=== PATIENT | female | born 1945 | race Caucasian/White ===

== ENCOUNTER 2016-11-26 09:02 | Emergency (ER) | payer MEDICARE, BC ==
--- NOTE | 2016-11-26 09:42 | ED Physician Documentation ---
PD HPI CHEST PAIN - Stated complaint Stated Complaint: SOA/LT SIDE PX - Chief complaint Chief Complaint: Resp - History obtained from History obtained from: Patient - History of Present Illness Timing - onset: How many days ago (several days of left chest and upper back pain. Has had similar for the past several weeks or more, intermittently. Had been to PMD and had CXR that showed T4 compression defromity of unknown age, and not acute lung provess. Dx as muscle strain by PMD.) Timing - onset during: Light activity, Exertion ([place]oved [place] [facility] a [facility] ago and has been doing lifting, carrying and the pain is worse.) Timing - details: Gradual onset, Still present, Intermittant Quality: Aching, Sharp, Pain Location: Left chest (just under breast area and also upper thoracic back about T4-5 area. No noted rash nor sores.) Improved by: Rest Worsened by: Exertion, Movement (torso twisting and also bending, hurts with deep breathing.) Associated symptoms: No: Shortness of air, Nausea, Vomiting, Feeling faint / dizzy, Palpitations, Cough Similar symptoms before: Has not had sx before Recently seen: Not recently seen Review of Systems Constitutional: denies: Fever, Chills, Myalgias Nose: denies: Rhinorrhea / runny nose, Congestion Throat: denies: Sore throat Cardiac: reports: Chest pain / pressure. 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 - Present Medications Home Medications: Ambulatory Orders Medication Instructions Recorded Confirmed Benzonatate [Tessalon Perle] 100 mg PO PRN PRN 11/26/16 11/26/16 Cilostazol 0 mg PO DAILY 11/26/16 11/26/16 Diltiazem HCl 0 mg PO DAILY 11/26/16 11/26/16 HYDROcod/ACETAM 5/325 [Leisenring 5/325] 1 tab PO Q6H PRN #20 tablet 11/26/16 Lidocaine Patch 5% [Lidoderm Patch] 1 each TOP DAILY PRN #10 patch 11/26/16 Losartan Potassium 0 mg PO DAILY 11/26/16 11/26/16 Ondansetron HCl [Zofran] 4 mg PO Q6H PRN #20 tablet 11/26/16 Prednisone 10 mg PO DAILY 11/26/16 11/26/16 - Allergies Allergies/Adverse Reactions: Allergies Allergy/AdvReac Type Severity Reaction Status Date / Time codeine Allergy Nausea Verified 11/26/16 09:31 - Social History Does the pt smoke?: No Smoking Status: Never smoker - Family History Family history: denies: CAD, Aortic aneursym, Aortic dissection PD ED PE NORMAL - Vitals Vital signs reviewed: Yes - General General: Alert and oriented X 3, No acute distress, Well developed/nourished - HEENT HEENT: Atraumatic, Moist mucous membranes, Pharynx benign - Neck Neck: Supple, no meningeal sign, No adenopathy - Cardiac Cardiac: RRR, No murmur - Respiratory Respiratory: Clear bilaterally - Abdomen Abdomen: Normal bowel sounds, Soft, Non tender - Back Back: No CVA TTP, No spinal TTP (but is tender left sided scapular muscles medial aspect. No rash nor deformity. ) - Derm Derm: Normal color, Warm and dry, No rash - Neuro Neuro: Alert and oriented X 3, No motor deficit, Normal speech Results - Vitals Vitals: Oxygen O2 Source Room air - Rads (name of study) chest Radiology: Prelim report reviewed (bronchial cuffing. No infiltrates. ), EMP read contemporaneously (no pulmonary findings. Prior T4 compressive deformity noted. ) PD MEDICAL DECISION MAKING - ED course Complexity details: considered differential (she has had left chest/back pain wrapping around for awhile and has prior compressive deformity there. I think she is having radiculitis pain from that area. ), d/w patient Departure - Departure Disposition: 01 Home, Self Care Clinical Impression: Left sided chest pain, Thoracic radiculitis Condition: Stable Record reviewed to determine appropriate education?: Yes Instructions: ED Chest Pain NonCardiac Prescriptions: Lidocaine Patch 5% [Lidoderm Patch] 1 each TOP DAILY PRN #10 patch PRN Reason: Pain HYDROcod/ACETAM 5/325 [Leisenring 5/325] 1 tab PO Q6H PRN #20 tablet PRN Reason: Pain Ondansetron HCl [Zofran] 4 mg PO Q6H PRN #20 tablet PRN Reason: Nausea / Vomiting Comments: There may be a component of pleurisy or lung pain related to the interstitial lung disease and activity and dust removing. However I think a good part of the pain you are having is nerve irritation likely from the thoracic old compression. You can use your albuterol inhaler 2 puffs 4 times a day for the next few days. Also increase her prednisone to 20 mg a day for 3 more days and then back to the usual 10. For the back pain you can use a lidocaine patch in the left side of the back where it is hurting. Also use hydrocodone if needed for pain and can use 1/2-1 tablet every 6 hours. He can use ondansetron with it to reduce nausea side effects. 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 Follow-up with your primary care would be good to discuss Advair possibly of referral to assurance specialist for potential injections or other treatment or to consider the idea of a pinched nerve as a cause of it. Discharge Date/Time: 11/26/16 11:24
--- NOTE | 2016-11-26 10:14 | XRAY Report ---
EXAM: CHEST RADIOGRAPHY EXAM DATE: 11/26/2016 10:01 AM. CLINICAL HISTORY: Pain. COMPARISON: None. TECHNIQUE: 2 views. FINDINGS: Lungs/Pleura: Subtle increased interstitial markings with peribronchial cuffing. Rounded densities in the right lower lung field measuring up to 6 mm. No focal opacities evident. No pleural effusion. No pneumothorax. Normal volumes. Mediastinum: Heart and mediastinal contours are unremarkable. Other: None. IMPRESSION: 1. No focal consolidation. 2. Increased interstitial markings with subtle perirectal cuffing are nonspecific began using the set ting of reactive airways disease, bronchitis and viral infection. 3. There are rounded densities in the right lower lung field measuring up to 6 mm which are not local ized on the lateral view. While these may represent vascular shadows seen on and on the PA view due t o pulmonary densities cannot be excluded and a chest CT with contrast may be of clinical benefit. [facility] Referring Provider Line: [phone] SITE ID: [id number]
[2016-11-26] MEDS ORDERED: DEXAMETHASONE 10 MG/ML VIAL PO STA (10:26)
[2016-11-26] MEDS ORDERED: HYDROcod/ACETAM 5/325 MG TABLET PO STA (10:26)
[2016-11-26] MEDS ORDERED: ONDANSETRON ODT 4 MG TABLET TL STA (10:26)
[2016-11-26] MEDS ORDERED: HYDROcod/ACETAM 5/325 MG TABLET ONE (10:37)
[2016-11-26] MEDS ORDERED: ONDANSETRON ODT 4 MG TABLET ONE (10:37)
[2016-11-26] MEDS ORDERED: DEXAMETHASONE 10 MG/ML VIAL ONE (10:37)
[2016-11-26 10:56] VITALS: BP 133/85
== END 2016-11-26 11:24 | disposition home or self-care (01) ==
LOC: ED 09:02
DX: R07.9 Chest pain, unspecified (principal); M54.14 Radiculopathy, thoracic region; I10 Essential (primary) hypertension; J84.9 Interstitial pulmonary disease, unspecified
CPT/HCPCS: 71020; 99283; A9270; Q0162

== ENCOUNTER 2017-12-15 09:09 | Outpatient (CLI) | payer MEDICARE, OTHER ==
--- NOTE | 2017-12-17 16:28 | Mammography Report ---
Reason: SCREENING MAMMO Procedure Date: 12/15/2017 Accession Number: [id number] / [id number] Procedure: PAIGE - Screening Mammo Dig Bilat CPT Code: FULL RESULT: EXAM: Screening Mammo Dig Bilat DATE: 12/15/2017 9:54 AM CLINICAL HISTORY: 72-year-old female with history of breast reduction surgery. TECHNIQUE: Bilateral CC and MLO views were obtained. COMPARISON: 12/27/2015, 03/19/2014, 03/17/2013. FINDINGS: The breasts demonstrate scattered fibroglandular densities bilaterally. Coarse typically benign calcifications are seen bilaterally. No suspicious masses, clustered microcalcifications, or regions of architectural distortion are identified. IMPRESSION: Benign findings RECOMMENDATION: Routine annual screening unless otherwise clinically indicated. BIRADS CATEGORY 2: Benign findings STANDARD QUALIFYING STATEMENTS: 1. This examination was not reviewed with the aid of Computer-Aided Detection (CAD). 2. A negative or benign imaging report should not delay biopsy if clinically suspicious findings are present. Consider surgical consultation if warrented. More than 5% of cancers are not identified by imaging. 3. Dense breasts may obscure an underlying neoplasm. 4. This examination was reviewed without the aid of 3D breast imaging (tomosynthesis).
== END 2017-12-15 09:10 | disposition home or self-care (01) ==
LOC: DI 09:09
PROVIDERS: ATTEND Internal Medicine
DX: Z12.31 Encounter for screening mammogram for malignant neoplasm of breast (principal)
CPT/HCPCS: 77067

== ENCOUNTER 2018-04-09 10:10 | Emergency (ER) | payer MEDICARE, OTHER ==
--- NOTE | 2018-04-09 10:27 | ED Physician Documentation ---
PD HPI FEMALE - Stated complaint Stated Complaint: FEM - Chief complaint Chief Complaint: General - History obtained from History obtained from: Patient - History of Present Illness Timing - onset: Today, Last night Timing - details: Abrupt onset, Still present Associated symptoms: Dysuria, Urinary frequency. No: Fever, Vaginal discharge Similar symptoms before: Has not had sx before Recently seen: Not recently seen Review of Systems Constitutional: denies: Fever, Chills, Myalgias Nose: denies: Rhinorrhea / runny nose, Congestion Throat: denies: Sore throat Cardiac: denies: Chest pain / pressure, Palpitations Respiratory: denies: Cough GI: reports: Abdominal Pain, Nausea. denies: Vomiting, Diarrhea : reports: Dysuria, Frequency. 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 - Present Medications Home Medications: Ambulatory Orders Medication Instructions Recorded Confirmed Losartan Potassium 0 mg PO DAILY 11/26/16 04/09/18 Prednisone 10 mg PO DAILY 11/26/16 04/09/18 dilTIAZem HCl [Diltiazem HCl] 0 mg PO DAILY 11/26/16 04/09/18 Cephalexin [Keflex] 500 mg PO TID #21 capsule 04/09/18 Ondansetron Odt [Zofran] 4 mg TL Q6H PRN #10 tablet 04/09/18 - Allergies Allergies/Adverse Reactions: Allergies Allergy/AdvReac Type Severity Reaction Status Date / Time codeine Allergy Nausea Verified 04/09/18 10:25 - Social History Does the pt smoke?: No Smoking Status: Never smoker PD ED PE NORMAL - Vitals Vital signs reviewed: Yes - General General: Alert and oriented X 3, No acute distress, Well developed/nourished - HEENT HEENT: Moist mucous membranes, Pharynx benign - Neck Neck: Supple, no meningeal sign, No adenopathy - Cardiac Cardiac: RRR, No murmur - Respiratory Respiratory: Clear bilaterally - Abdomen Abdomen: Normal bowel sounds, Soft, Non distended, No organomegaly, Other (mild tender suprapubic and left flank. No rebound nor percussion tenderness. ) - Female Female : Deferred - Rectal Rectal: Deferred - Derm Derm: Normal color, No rash - Neuro Neuro: Alert and oriented X 3, No motor deficit, Normal speech Results - Vitals Vitals: Vital Signs - 24 hr 04/09/18 04/09/18 10:15 12:43 Temperature 36.1 C L 35.8 C L Heart Rate 68 73 Respiratory 18 16 Rate Blood Pressure 101/68 132/61 H O2 Saturation 100 97 Oxygen O2 Source Room air - Labs Labs: Laboratory Tests 04/09/18 04/09/18 04/09/18 10:15 11:10 11:10 WBC 11.4 H RBC 3.71 L Hgb 11.4 L Hct 34.9 L MCV 94.1 MCH 30.9 MCHC 32.8 RDW 14.6 Plt Count 258 MPV 6.8 L Neut # (Auto) 8.7 H Lymph # (Auto) 1.3 L [place] # (Auto) 1.3 H Eos # (Auto) 0.1 Baso # (Auto) 0.0 Absolute Nucleated RBC 0.00 Nucleated RBC % 0.0 Sodium 140 Potassium 3.7 Chloride 108 Carbon Dioxide 24 Anion Gap 8.0 BUN 18 Creatinine 0.7 Estimated GFR (MDRD) 82 L Glucose 99 Calcium 9.2 Total Bilirubin 0.5 AST 17 ALT 10 Alkaline Phosphatase 48 Total Protein 6.9 Albumin 3.6 Globulin 3.3 Albumin/Globulin Ratio 1.1 Lipase 29 Urine Color YELLOW Urine Clarity HAZY Urine pH 7.0 Ur Specific [place] 1.015 Urine Protein NEGATIVE Urine Glucose (UA) NEGATIVE Urine Ketones NEGATIVE Urine Occult Blood LARGE H Urine Nitrite NEGATIVE Urine Bilirubin NEGATIVE Urine Urobilinogen 0.2 (NORMAL) Ur Leukocyte Esterase SMALL H Urine RBC 6-10 H Urine WBC 11-25 H Ur Squamous Epith Cells RARE Squamous Urine Bacteria Rare Ur Microscopic Review INDICATED Urine Culture Comments INDICATED PD MEDICAL DECISION MAKING - ED course Complexity details: reviewed results, re-evaluated patient (feeling okay with fluids and meds. Started on abx. Is clinically stable for discharge and outpt treatment. ), considered differential (has dysuria and symptoms to c/w UTI and urine is positive enough to confirm. Not acute abd on exam. ), d/w patient Departure - Departure Disposition: 01 Home, Self Care Clinical Impression: UTI (urinary tract infection) Qualifiers: Urinary tract infection type: acute pyelonephritis Qualified Code(s): N10 - Acute pyelonephritis Condition: Stable Record reviewed to determine appropriate education?: Yes Instructions: ED UTI Cystitis Female Follow-Up: Vandana Holloway MD [Primary Care Provider] - Prescriptions: Cephalexin [Keflex] 500 mg PO TID #21 capsule Ondansetron Odt [Zofran] 4 mg TL Q6H PRN #10 tablet PRN Reason: Nausea / Vomiting Comments: Drink lots of fluids. Tylenol or ibuprofen if needed for pains. Ondansetron if needed for nausea. It sounds like an infection of the urinary tract both bladder and now early kidney. We will treat this with cephalexin antibiotic 3 times a day for the next week. Recheck if not improved over the next couple of days and return sooner if worsening. Discharge Date/Time: 04/09/18 12:44
[2018-04-09 10:30] LABS: BILIRUBIN,URINE NEGATIVE (NEGATIVE); CLARITY,URINE HAZY (CLEAR); GLUCOSE, URINE (UA) NEGATIVE (NEGATIVE); KETONES,URINE (UA) NEGATIVE (NEGATIVE); LEUKOCYTE ESTERASE, URINE SMALL (NEGATIVE); NITRITE,URINE NEGATIVE (NEGATIVE); OCCULT BLOOD,URINE LARGE (NEGATIVE); PROTEIN,URINE NEGATIVE (NEGATIVE); UROBILINOGEN,URINE 0.2 (NORMAL) E.U./dL (NORMAL)
[2018-04-09 10:34] LABS: SQUAMOUS EPITHELIAL CELL,UR RARE Squamous (<= Few)
[2018-04-09 10:35] LABS: BACTERIA,URINE Rare /HPF (None Seen)
[2018-04-09] MEDS ORDERED: ONDANSETRON 4 MG/2 ML VIAL IVP STA (10:43)
[2018-04-09] MEDS ORDERED: SODIUM CHLORIDE 0.9% 1,000 ML IV ONE (10:43)
[2018-04-09] MEDS ORDERED: KETOROLAC 15 MG/ML VIAL IVP STA (10:43)
[2018-04-09] MEDS ORDERED: cefTRIAXone 1 GM VIAL IVP STA (10:43)
[2018-04-09 11:32] LABS: ALBUMIN 3.6 g/dL (3.2-5.5); ALBUMIN/GLOBULIN RATIO 1.1 (1.0-2.2); BILIRUBIN,TOTAL 0.5 mg/dL (0.2-1.0); CALCIUM 9.2 mg/dL (8.5-10.3); CREATININE 0.7 mg/dL (0.4-1.0); TOTAL PROTEIN 6.9 g/dL (6.7-8.2)
[2018-04-09 11:45] LABS: BASOPHILS % (AUTO) 0.3 %; EOSINOPHILS # (AUTO) 0.1 10^3/uL (0.0-0.7); EOSINOPHILS % (AUTO) 0.5 %; HGB - HEMOGLOBIN 11.4 g/dL (12.0-16.0); LYMPHOCYTES # (AUTO) 1.3 10^3/uL (1.5-3.5); LYMPHOCYTES % (AUTO) 11.5 %; MEAN CORPUSCULAR HEMOGLOBIN 30.9 pg (27.0-31.0); MEAN CORPUSCULAR HGB CONC 32.8 g/dL (32.0-36.0); MEAN CORPUSCULAR VOLUME 94.1 fL (81.0-99.0); MEAN PLATELET VOLUME 6.8 fL (7.9-10.8); MONOCYTES # (AUTO) 1.3 10^3/uL (0.0-1.0); MONOCYTES % (AUTO) 11.1 %; NEUTROPHILS # (AUTO) 8.7 10^3/uL (1.5-6.6); NEUTROPHILS % (AUTO) 76.6 %; PLT - PLATELET COUNT 258 10^3/uL (130-450); RED BLOOD COUNT 3.71 10^6/uL (4.20-5.40); RED CELL DISTRIBUTION WIDTH 14.6 % (12.0-15.0); WHITE BLOOD COUNT 11.4 x10^3/uL (4.8-10.8)
[2018-04-09 12:44] VITALS: BP 132/61
== END 2018-04-09 12:44 | disposition home or self-care (01) ==
LOC: ED 10:10
DX: N10 Acute pyelonephritis (principal); I10 Essential (primary) hypertension
CPT/HCPCS: 36415; 80053; 81001; 81003; 83690; 85025; 87086; 96361; 96374; 96375; 99283

== ENCOUNTER 2018-12-01 08:22 | Day surgery (SDC) | payer MEDICARE, OTHER ==
[~2018-12-01 08:22] MED LIST: BRIMONIDINE 0.2% OPHTH DROPS 5 ML ONE; BSS/LIDOCAINE/EPINEPHRINE 1 ML SYRINGE ONE; TIMOLOL 0.5% OPHTH DROPS ONE; TRIAMCIN/MOXIFLOX OPHTHALMIC 0.6 ML VIAL IO ONE; VANCOMYCIN OPHTHALMI 8MG/0.8ML 8 MG/0.8 ML SYRINGE IO ONE
[2018-12-01] MEDS ORDERED: MIDAZOLAM 2 MG/2 ML VIAL IVP ONE (08:23)
[2018-12-01] MEDS ORDERED: CYCLOPENTOLATE 1% OPHTH DROPS 2 ML ONE (08:44)
[2018-12-01] MEDS ORDERED: PHENYLEPHRINE 2.5% OPHTH 2 ML DROPS ONE (08:44)
[2018-12-01] MEDS ORDERED: KETOROLAC 0.45% OPHTH DROPS ONE (08:44)
[2018-12-01] MEDS ORDERED: PROPARACAINE 0.5% OPHTH DROPS 15 ML ONE (08:45)
[2018-12-01] MEDS ORDERED: LACTATED RINGERS 500 ML IV ONE (08:49)
--- NOTE | 2018-12-01 08:54 | ANESTHESIA ---
Pre-Anesthesia VS, & Labs - Diagnosis right senile combined cataract - Procedure right lazer assisted cataract extraction with intraocular lens implant Vital Signs: 138/80, 109, 16, Height 4 ft 11 in Body Mass Index 25.6 - NPO >8 hours - Is Patient ?: No Home Medications and Allergies Home Medications: Ambulatory Orders Benzonatate [Tessalon Perle] 100 mg PO PRN PRN 11/30/18 Losartan Potassium 0 mg PO DAILY 11/26/16 dilTIAZem HCl [Diltiazem HCl] 0 mg PO DAILY 11/26/16 Benzonatate [Tessalon Perle] 100 mg PO PRN PRN 11/30/18 Allergies/Adverse Reactions: Allergies Allergy/AdvReac Type Severity Reaction Status Date / Time codeine Allergy Nausea Verified 12/01/18 08:47 Anes History & Medical History - Anesthetic History Anesthesia Complications: reports: Post-Operative Nausea/Vomiting - Medical History Cardiovascular: reports: Hypertension, Other Pulmonary: reports: 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) Gastrointestinal: reports: None Urinary: reports: None Neuro: reports: Other (vertigo) Musculoskeletal: reports: Chronic back pain Endocrine/Autoimmune: reports: None Skin: reports: Psoriasis Smoking Status: Never smoker - Surgical History General: Appendectomy Gynecologic: Hysterectomy Orthopedic: Other Exam General: Alert Dental: WNL, Partials Upper Mouth Opening: Greater than 4 Fingerbreadths Mallampati classification: II Thyromental Distance: greater than 6 cm Respiratory: Lungs clear, Decreased breath sounds Cardiovascular: Regular rate, Normal S1, Normal S2, Other (2/6 murmur) Plan Anesthesia Type: MAC Consent for Procedure(s) Verified and Reviewed: Yes Code Status: Attempt Resuscitation ASA classification: 4-Incapacitating disease Is this case an emergency?: No
[2018-12-01] MEDS ORDERED: CYCLOPENTOLATE 1% OPHTH DROPS 2 ML RIGHTEYE ONE (09:00)
[2018-12-01] MEDS ORDERED: PROPARACAINE 0.5% OPHTH DROPS 15 ML RIGHTEYE ONE (09:00)
[2018-12-01] MEDS ORDERED: PHENYLEPHRINE 2.5% OPHTH 2 ML DROPS RIGHTEYE ONE (09:00)
[2018-12-01] MEDS ORDERED: KETOROLAC 0.45% OPHTH DROPS RIGHTEYE ONE (09:00)
[2018-12-01] MEDS ORDERED: EPINEPHrine 1 MG/ML AMP IVP ONE (10:19)
[2018-12-01] MEDS ORDERED: CHONDR SULF/HYALURONATE SYRINGE IO ONE (10:19)
[2018-12-01] MEDS ORDERED: TIMOLOL 0.5% OPHTH DROPS OPTH ONE (10:19)
[2018-12-01] MEDS ORDERED: BRIMONIDINE 0.2% OPHTH DROPS 5 ML OPTH ONE (10:19)
[2018-12-01] MEDS ORDERED: TRIAMCIN/MOXIFLOX OPHTHALMIC 0.6 ML VIAL IO ONE (10:20)
[2018-12-01] MEDS ORDERED: BSS/LIDOCAINE/EPINEPHRINE 1 ML SYRINGE IO ONE (10:20)
[2018-12-01] MEDS ORDERED: VANCOMYCIN OPHTHALMI 8MG/0.8ML 8 MG/0.8 ML SYRINGE IO ONE (10:21)
--- NOTE | 2018-12-01 11:04 | OPERATIVE REPORT ---
DATE OF SERVICE: 12/01/2018 Physician: Justice Hastings MD PREOPERATIVE DIAGNOSIS: Visually significant cataract, right eye. This was her first cataract surgery. POSTOPERATIVE DIAGNOSIS: Visually significant cataract, right eye. This was her first cataract surgery. OPERATIVE PROCEDURE: Phacoemulsification with posterior chamber intraocular lens implant, right eye with laser assist. SURGEON: Justice Hastings MD ANESTHESIA: Monitored anesthesia care. COMPLICATIONS: None. OPERATIVE INDICATIONS: This is a 73-year-old woman with progressive vision loss in the right eye due to 3+ nuclear sclerotic, 2+ cortical and 2-3+ posterior subcapsular cataract. Best corrected visual acuity was 20/50 with glare to 20/100 in the right eye. Indications for surgery are overall decrease in vision, difficulty seeing words on a computer screen, difficulty reading, difficulty seeing words, closed caption or game scores on TV and difficulty with glare or bright lights in any situation. She was consented at length concerning risks and benefits of cataract surgery, after which she expressed a desire to proceed with surgery. OPERATIVE PROCEDURE: Patient was taken to OR #3 and placed under monitored anesthesia care. A surgical timeout was conducted confirming correct patient, correct procedure, and correct surgical site. She was placed on the LenSx laser and her eye docked to the laser interface. The laser performed the capsulotomy, lens softening, phaco wounds and arcuate keratotomy incisions. She was then moved to the operating microscope, given topical anesthesia, then prepped and draped in the usual sterile fashion. The eye was entered at the 12 and 9 o'clock positions. Intracameral Shugarcaine was injected into the anterior chamber, followed by Viscoat. The capsulorrhexis flap created by the LenSx laser was removed from the anterior chamber. The nucleus was hydrodissected and phacoemulsified. The cortex was evacuated using automated infusion and aspiration. Provisc was injected in the capsular bag and a 23.0 diopter intraocular lens was inserted in the bag. Approximately 0.8 mL of a mixture of triamcinolone, moxifloxacin and vancomycin was injected subconjunctivally in the superior quadrant for infection and inflammation prophylaxis. I and A was used to evacuate the viscoelastic materials. The eye was inflated to physiologic pressure using balanced salt solution and found to be watertight. Patient was taken from the operating room in good condition and given postoperative instructions. TD: 12/01/2018 10:37 MTDKurt
[2018-12-01 11:06] VITALS: BP 126/74
== END 2018-12-01 08:23 | disposition home or self-care (01) ==
LOC: SDS 08:22
PROVIDERS: ATTEND Ophthalmology
PROC: 08RJ3JZ Replacement of Right Lens with Synthetic Substitute, Percutaneous Approach (ICD-10-PCS; principal; 2018-12-01 09:30)
DX: H25.811 Combined forms of age-related cataract, right eye (principal); J61 Pneumoconiosis due to asbestos and other mineral fibers; T57 Toxic effect of other inorganic substances; I10 Essential (primary) hypertension; R12 Heartburn; G89.29 Other chronic pain; M54.9 Dorsalgia, unspecified; R42 Dizziness and giddiness; L30.9 Dermatitis, unspecified; Z79.51 Long term (current) use of inhaled steroids; Z79.52 Long term (current) use of systemic steroids; Z87.891 Personal history of nicotine dependence
CPT/HCPCS: 66984; A9270; J3490; V2632

== ENCOUNTER 2018-12-16 12:43 | Outpatient (CLI) | payer MEDICARE, OTHER ==
--- NOTE | 2018-12-19 08:30 | Mammography Report ---
Reason: SCREENING MAMMO Procedure Date: 12/16/2018 Accession Number: [id number] / [id number] Procedure: PAIGE - Screening Mammo w/Devyn CPT Code: FULL RESULT: EXAM: Screening Mammo w/Devyn DATE: 12/16/2018 1:50 PM CLINICAL HISTORY: Annual screening TECHNIQUE: (B) - Bilateral CC and MLO views were obtained. COMPARISON: 12/15/2017, 12/27/2015 PARENCHYMAL PATTERN: (F) - The breasts demonstrate diffuse fatty replacement bilaterally. . FINDINGS: There are no suspicious masses, calcifications, or areas of distortion. IMPRESSION: Negative examination. BI-RADS category 1. RECOMMENDATION: (ANNUAL) - Recommend routine annual screening mammography. BI-RADS CATEGORY: (1) - Negative. STANDARD QUALIFYING STATEMENTS: 1. This examination was reviewed with the aid of Computer-Aided Detection (CAD). 2. A negative or benign imaging report should not preclude biopsy if clinically suspicious findings are present. 3. Dense breasts may obscure an underlying neoplasm. 4. This examination was reviewed without the aid of 3D breast imaging (tomosynthesis).
== END 2018-12-16 12:44 | disposition home or self-care (01) ==
LOC: DI 12:43
PROVIDERS: ATTEND Internal Medicine
DX: Z12.31 Encounter for screening mammogram for malignant neoplasm of breast (principal)
CPT/HCPCS: 77063; 77067

== ENCOUNTER 2019-02-02 08:08 | Day surgery (SDC) | payer MEDICARE, OTHER ==
[~2019-02-02 08:08] MED LIST changes: +CYCLOPENTOLATE 1% OPHTH DROPS 2 ML ONE; +KETOROLAC 0.45% OPHTH DROPS ONE; +PHENYLEPHRINE 2.5% OPHTH 2 ML DROPS ONE; +PROPARACAINE 0.5% OPHTH DROPS 15 ML ONE
[2019-02-02] MEDS ORDERED: MIDAZOLAM 2 MG/2 ML VIAL IVP ONE (08:09)
[2019-02-02] MEDS ORDERED: LIDOCAINE 2% 10 ML MDV SUBQ ONE (08:09)
[2019-02-02] MEDS ORDERED: PROPOFOL 200 MG/20 ML VIAL IVP ONE (08:09)
[2019-02-02] MEDS ORDERED: LACTATED RINGERS 500 ML IV ONE (08:12)
[2019-02-02] MEDS ORDERED: KETOROLAC 0.45% OPHTH DROPS LEFTEYE ONE (08:25)
[2019-02-02] MEDS ORDERED: PHENYLEPHRINE 2.5% OPHTH 2 ML DROPS LEFTEYE ONE (08:25)
[2019-02-02] MEDS ORDERED: PROPARACAINE 0.5% OPHTH DROPS 15 ML LEFTEYE ONE (08:25)
[2019-02-02] MEDS ORDERED: CYCLOPENTOLATE 1% OPHTH DROPS 2 ML LEFTEYE ONE (08:25)
--- NOTE | 2019-02-02 09:19 | ANESTHESIA ---
Pre-Anesthesia VS, & Labs - Diagnosis Left senile combined cataract - Procedure Left laser assistedf phaco with IOL implant Height 4 ft 11 in Weight (kg) 56 kg Body Mass Index 25.6 - NPO >8 hours - Is Patient ?: Not Applicable Home Medications and Allergies Home Medications: Ambulatory Orders Albuterol 2.5 mg INH DAILY 02/01/19 Prednisone 10 mg PO DAILY 02/01/19 Losartan Potassium 0 mg PO DAILY 11/26/16 dilTIAZem HCl [Diltiazem HCl] 0 mg PO DAILY 11/26/16 Benzonatate [Tessalon Perle] 100 mg PO PRN PRN 11/30/18 Albuterol 2.5 mg INH DAILY 02/01/19 Prednisone 10 mg PO DAILY 02/01/19 Allergies/Adverse Reactions: Allergies Allergy/AdvReac Type Severity Reaction Status Date / Time codeine Allergy Nausea Verified 12/01/18 08:47 Anes History & Medical History - Anesthetic History Anesthesia Complications: reports: Post-Operative Nausea/Vomiting Family history of Anesthesia Complications: Denies Family history of Malignant Hyperthermia: Denies - Medical History Cardiovascular: reports: Hypertension, Other Pulmonary: reports: Other (Pulmonary fibrosis) Gastrointestinal: reports: None Urinary: reports: None Neuro: reports: None, Other Musculoskeletal: reports: Chronic back pain Endocrine/Autoimmune: reports: None Blood Disorders: reports: None Skin: reports: Psoriasis Smoking Status: Former smoker Psychosocial: reports: No issues indicated - Surgical History General: Appendectomy Gynecologic: Hysterectomy Orthopedic: Other Exam General: Alert, Oriented x3, Cooperative Dental: Other (Front upper false) Mouth Openin Fingerbreadth Neck Mobility: Normal Mallampati classification: III Thyromental Distance: 4-6 cm Respiratory: Rales Cardiovascular: Other (Irregular) Neurological: Normal speech Mental/Cognitive Status: Alert/Oriented X3 Cognitive Status: Within normal limits Plan Anesthesia Type: MAC Consent for Procedure(s) Verified and Reviewed: Yes Code Status: Attempt Resuscitation ASA classification: 3-Severe systemic disease Is this case an emergency?: No
[2019-02-02] MEDS ORDERED: CHONDR SULF/HYALURONATE SYRINGE IO ONE (09:47)
[2019-02-02] MEDS ORDERED: EPINEPHrine 1 MG/ML AMP IVP ONE (09:47)
[2019-02-02] MEDS ORDERED: BRIMONIDINE 0.2% OPHTH DROPS 5 ML OPTH ONE (09:47)
[2019-02-02] MEDS ORDERED: TIMOLOL 0.5% OPHTH DROPS OPTH ONE (09:47)
[2019-02-02] MEDS ORDERED: VANCOMYCIN OPHTHALMI 8MG/0.8ML 8 MG/0.8 ML SYRINGE IO ONE (09:48)
[2019-02-02] MEDS ORDERED: TRIAMCIN/MOXIFLOX OPHTHALMIC 0.6 ML VIAL IO ONE (09:48)
[2019-02-02] MEDS ORDERED: BSS/LIDOCAINE/EPINEPHRINE 1 ML SYRINGE IO ONE (09:48)
[2019-02-02 10:08] VITALS: BP 103/57
--- NOTE | 2019-02-02 10:40 | OPERATIVE REPORT ---
DATE OF SERVICE: 02/02/2019 Physician: Justice Hastings MD PREOPERATIVE DIAGNOSIS: Visually significant cataract, left eye. Cataract surgery was performed on the right eye on 12/01/2018. POSTOPERATIVE DIAGNOSIS: Visually significant cataract, left eye. Cataract surgery was performed on the right eye on 12/01/2018. PROCEDURE: Phacoemulsification with posterior chamber intraocular lens implant, left eye, with laser assist. SURGEON: Justice Hastings MD ANESTHESIA: Monitored anesthesia care. COMPLICATIONS: None. OPERATIVE INDICATIONS: This is a 73-year-old woman with progressive vision loss in the left eye due to 3+ nuclear sclerotic, 2+ cortical and 3+ posterior subcapsular cataract. Best corrected visual acuity was 20/40, with glare to hand motion vision in the left eye. Indications for surgery are overall decrease in vision, difficulty reading and difficulty seeing words, closed caption or game scores on TV. She was consented at length concerning risks and benefits of cataract surgery, after which she expressed a desire to proceed with surgery. OPERATIVE PROCEDURE: Patient was taken to OR #3 and placed under monitored anesthesia care. A surgical timeout was conducted confirming correct patient, correct procedure, and correct surgical site. She was placed under the LenSx laser and her eye docked to the laser interface. The laser performed the capsulotomy, lens softening, phaco wounds, and arcuate keratotomy incisions. She was then moved to the operating microscope, given topical anesthesia, and prepped and draped in the usual sterile manner. The eye was entered at the 6 and 3 o'clock positions. Intracameral Shugarcaine was injected into the anterior chamber, followed by Viscoat. The capsulorhexis flap created by the LenSx laser was removed from the anterior chamber. The nucleus was hydrodissected and phacoemulsified. The cortex was evacuated using automated infusion and aspiration (I&A). Provisc was injected in the capsular bag and a 23.0 diopter intraocular lens was inserted in the bag. Approximately 0.25 mL of a mixture of triamcinolone and moxifloxacin was injected transsclerally into the vitreous in the inferotemporal quadrant. An additional 0.55 mL of a mixture of triamcinolone, moxifloxacin and vancomycin was injected subconjunctivally in the superior quadrant for infection and inflammation prophylaxis. I&A was used to evacuate the viscoelastic materials. The eye was inflated to physiologic pressure using balanced salt solution and found to be watertight. Patient was taken from the operating room in good condition and given postoperative instructions. TD: 02/02/2019 10:12 MARLYN
== END 2019-02-02 08:09 | disposition home or self-care (01) ==
LOC: SDS 08:08
PROVIDERS: ATTEND Ophthalmology
PROC: 08RK3JZ Replacement of Left Lens with Synthetic Substitute, Percutaneous Approach (ICD-10-PCS; principal; 2019-02-02 09:30)
DX: H25.812 Combined forms of age-related cataract, left eye (principal); I10 Essential (primary) hypertension; J84.10 Pulmonary fibrosis, unspecified; J61 Pneumoconiosis due to asbestos and other mineral fibers; K21.9 Gastro-esophageal reflux disease without esophagitis; R42 Dizziness and giddiness; G89.29 Other chronic pain; M54.9 Dorsalgia, unspecified; Z79.51 Long term (current) use of inhaled steroids; Z79.52 Long term (current) use of systemic steroids; Z87.891 Personal history of nicotine dependence
CPT/HCPCS: 66984; A9270; J3490; V2632

== ENCOUNTER 2019-04-24 10:58 | Outpatient (CLI) | payer MEDICARE, OTHER ==
--- NOTE | 2019-04-24 16:52 | XRAY Report ---
Reason: COUGH Procedure Date: 04/24/2019 Accession Number: [id number] / [id number] Procedure: XR - Chest 2 View X-Ray CPT Code: 69059 Final Report FULL RESULT: EXAM: CHEST RADIOGRAPHY EXAM DATE: 04/24/2019 11:09 AM. CLINICAL HISTORY: COUGH. Right lateral chest pain COMPARISON: CHEST 2 VIEW PA/LAT 11/26/2016 9:51 AM. TECHNIQUE: 2 views. FINDINGS: Lungs/Pleura: Increased interstitial markings. Several rounded dense nodules are seen predominantly in the right hemithorax, question granulomas. Right diaphragm calcification. No pleural effusion. No pneumothorax. Low lung volumes. Mediastinum: Heart and mediastinal contours are prominent. Other: Increasing thoracic kyphosis with bony demineralization and multiple compression fractures, progressed since 2017. IMPRESSION: Low lung volumes and chronic changes without definite findings of an acute superimposed process. Increasing thoracic kyphosis with multiple compression fractures appearing since 2017. If cough and pain persists consider CT. RADIA
== END 2019-04-24 10:59 | disposition home or self-care (01) ==
LOC: DI 10:58
PROVIDERS: ATTEND Internal Medicine
DX: R05 Cough (principal); M48.54XA Collapsed vertebra, not elsewhere classified, thoracic region, initial encounter for fracture; M40.204 Unspecified kyphosis, thoracic region
CPT/HCPCS: 71046

== ENCOUNTER 2019-07-28 15:22 | Emergency (ER) | payer MEDICARE, OTHER ==
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
[2019-07-28 15:57] LABS: BASOPHILS # (AUTO) 0.1 10^3/uL (0.0-0.1); BASOPHILS % (AUTO) 0.3 %; EOSINOPHILS % (AUTO) 0.1 %; HGB - HEMOGLOBIN 14.3 g/dL (12.0-16.0); LYMPHOCYTES # (AUTO) 1.3 10^3/uL (1.5-3.5); LYMPHOCYTES % (AUTO) 7.2 %; MEAN CORPUSCULAR HEMOGLOBIN 33.3 pg (27.0-31.0); MEAN CORPUSCULAR HGB CONC 32.4 g/dL (32.0-36.0); MEAN PLATELET VOLUME 8.7 fL (7.9-10.8); MONOCYTES # (AUTO) 0.6 10^3/uL (0.0-1.0); MONOCYTES % (AUTO) 3.1 %; NEUTROPHILS # (AUTO) 15.4 10^3/uL (1.5-6.6); PLT - PLATELET COUNT 319 10^3/uL (130-450); RED BLOOD COUNT 4.29 10^6/uL (4.20-5.40); RED CELL DISTRIBUTION WIDTH 18.1 % (12.0-15.0); WHITE BLOOD COUNT 17.7 x10^3/uL (4.8-10.8)
[2019-07-28 16:08] LABS: ALBUMIN 3.4 g/dL (3.2-5.5); BILIRUBIN,TOTAL 0.7 mg/dL (0.2-1.0); CREATININE 0.8 mg/dL (0.4-1.0); TOTAL PROTEIN 6.7 g/dL (6.7-8.2)
--- NOTE | 2019-07-28 16:25 | XRAY Report ---
Reason: dyspnea Procedure Date: 07/28/2019 Accession Number: [id number] / [id number] Procedure: XR - Chest 1 View X-Ray CPT Code: 28585 Final Report FULL RESULT: EXAM: CHEST RADIOGRAPHY EXAM DATE: 07/28/2019 04:04 PM. CLINICAL HISTORY: Dyspnea. COMPARISON: CHEST 2 VIEW 04/24/2019 11:04 AM CHEST 2 VIEW PA/LAT 11/26/2016 9:51 AM. TECHNIQUE: 1 view. FINDINGS: Lungs/Pleura: Increased lung markings. Reticulation. Right hilar prominence. No effusions. Possible calcified pleural plaques. Low volumes. Mediastinum: Stable Other: None. IMPRESSION: 1. Suspect underlying airways disease. 2. Possible fibrosis. CT would better evaluate. 3. Right hilar fullness is indeterminate. Could be prominent vessels or mass. CT could clarify. 4. Possible calcified pleural plaques which can be seen with asbestos exposure RADIA
[2019-07-28] MEDS ORDERED: cefTRIAXone 2 GM in SODIUM CHLORIDE 0.9% MINIBAG 100 ML IV STA (16:27)
[2019-07-28] MEDS ORDERED: AZITHROMYCIN INJ 500 MG in SODIUM CHLORIDE 0.9% 250 ML IV STA (16:27)
[2019-07-28] MEDS ORDERED: ACETAMINOPHEN 325 MG TABLET PO STA (16:32)
[2019-07-28] MEDS ORDERED: methocarbamoL 500 MG TABLET PO STA (16:32)
[2019-07-28] MEDS ORDERED: IOVERSOL 320 100 ML VIAL IVP ONE ×2 (16:40→20:43)
--- NOTE | 2019-07-28 17:26 | CT Report ---
Reason: dyspnea, abn cxr Procedure Date: 07/28/2019 Accession Number: [id number] / [id number] Procedure: CT - ANGIO CHEST W/WO CPT Code: Final Report FULL RESULT: EXAM: CT ANGIOGRAM CHEST EXAM DATE: 07/28/2019 05:00 PM. CLINICAL HISTORY: Increasing dyspnea COMPARISON: None. TECHNIQUE: Routine helical imaging was performed through the chest in the pulmonary arterial phase. IV Contrast: OPTIRAY 320. Reconstructions: Coronal 3-D MIP reconstructions. Sagittal and coronal. In accordance with CT protocol optimization, one or more of the following dose reduction techniques were utilized for this exam: automated exposure control, adjustment of mA and/or KV based on patient size, or use of iterative reconstructive technique. FINDINGS: Pulmonary Arteries: Diagnostic quality: Adequate through the segmental arteries. No evidence for acute or chronic pulmonary emboli. RV/LV is within normal limits. There is no interventricular septal bowing. There is no reflux of contrast material in the IVC. Lungs/Pleura: There is basilar predominant subpleural reticulation with traction bronchiectasis. Questionable subpleural cyst formation. There is some scattered associated groundglass opacity. There are pleural calcifications. There is no evidence of acute consolidation. No effusion. There is no pneumothorax. Mediastinum: There is cardiomegaly. There are no enlarged axillary, supraclavicular, mediastinal, or hilar lymph nodes. Thoracic Aorta: No acute aortic abnormalities are seen. There is mild convexity of the ligamentum arteriosum. No evidence of dissection. Upper Abdomen: There is a moderate sized hiatal hernia. Mid esophagus is patulous with fluid. The gallbladder is distended. Other: There are remote bilateral rib fractures. There are multiple compression fractures of the thoracic spine. Bones are osteopenic. IMPRESSION: 1. No evidence of acute pulmonary embolism. 2. No acute infiltrate or effusion. 3. There is subpleural reticulation with traction bronchiectasis. There is patchy groundglass opacity. There may be some areas of honeycombing. Findings are suggestive of UIP. NSIP would be a differential consideration. 4. There are scattered pleural calcifications which may reflect asbestos exposure. 5. There is a moderate size hiatal hernia. 6. The gallbladder is distended. RADIA
[2019-07-28] MEDS ORDERED: METOCLOPRAMIDE 10 MG/2 ML VIAL IVP STA (17:49)
[2019-07-28] MEDS ORDERED: methylPREDNISolone SUCCINATE 125 MG/2 ML VIAL IVP STA (17:49)
[2019-07-28 19:50] VITALS: BP 122/74
== END 2019-07-28 19:00 | disposition home or self-care (01) ==
LOC: ED 15:22
DX: J84.10 Pulmonary fibrosis, unspecified (principal); Z79.52 Long term (current) use of systemic steroids; Z99.81 Dependence on supplemental oxygen; I44.4 Left anterior fascicular block; K44.9 Diaphragmatic hernia without obstruction or gangrene; I10 Essential (primary) hypertension; T21.14XA Burn of first degree of lower back, initial encounter; X19.XXXA Contact with other heat and hot substances, initial encounter; Z87.891 Personal history of nicotine dependence
CPT/HCPCS: 36415; 71045; 71275; 80053; 81599; 83605; 83690; 83880; 84484; 85025; 87040; 93005; 96374; 96375; 99284; A9270; J2765; Q9967

== ENCOUNTER 2019-08-15 12:46 | Emergency (ER) | payer MEDICARE ==
[2019-08-15 13:15] LABS: BASOPHILS % (AUTO) 0.2 %; EOSINOPHILS % (AUTO) 0.2 %; HGB - HEMOGLOBIN 13.9 g/dL (12.0-16.0); LYMPHOCYTES # (AUTO) 1.6 10^3/uL (1.5-3.5); LYMPHOCYTES % (AUTO) 8.8 %; MEAN CORPUSCULAR HEMOGLOBIN 34.4 pg (27.0-31.0); MEAN CORPUSCULAR VOLUME 104.2 fL (81.0-99.0); MEAN PLATELET VOLUME 9.1 fL (7.9-10.8); MONOCYTES # (AUTO) 0.9 10^3/uL (0.0-1.0); MONOCYTES % (AUTO) 4.7 %; NEUTROPHILS # (AUTO) 15.2 10^3/uL (1.5-6.6); NEUTROPHILS % (AUTO) 83.8 %; PLT - PLATELET COUNT 225 10^3/uL (130-450); RED BLOOD COUNT 4.04 10^6/uL (4.20-5.40); RED CELL DISTRIBUTION WIDTH 18.2 % (12.0-15.0); WHITE BLOOD COUNT 18.1 x10^3/uL (4.8-10.8)
[2019-08-15 13:29] LABS: ALBUMIN 3.2 g/dL (3.2-5.5); ALBUMIN/GLOBULIN RATIO 0.9 (1.0-2.2); BILIRUBIN,TOTAL 0.8 mg/dL (0.2-1.0); CALCIUM 9.1 mg/dL (8.5-10.3); CREATININE 0.9 mg/dL (0.4-1.0); TOTAL PROTEIN 6.8 g/dL (6.7-8.2)
--- NOTE | 2019-08-15 13:54 | XRAY Report ---
Reason: Chest pain Procedure Date: 08/15/2019 Accession Number: [id number] / [id number] Procedure: XR - Chest 1 View X-Ray CPT Code: 86899 Final Report FULL RESULT: EXAM: CHEST RADIOGRAPHY EXAM DATE: 08/15/2019 01:18 PM. CLINICAL HISTORY: Chest pain. COMPARISON: ANGIO CHEST W/WO 07/28/2019 4:52 PM CHEST 1 VIEW 07/28/2019 3:46 PM. TECHNIQUE: 1 view. FINDINGS: Lungs/Pleura: Elevation right hemidiaphragm with right hemithorax volume loss. Indistinct left hemidiaphragm. Multiple right hemithorax pleural plaques suggestive of asbestos exposure. Groundglass density right lung base. Mediastinum: Deviation of the trachea to the right. Cardiac enlargement without interval change. Other: Multiple remote bilateral rib fractures. Diffuse mid and lower thoracic spine vertebral body compression. IMPRESSION: 1. Possible early infiltrate right lung base. 2. Silhouetting left hemidiaphragm. Possible small left pleural fluid. RADIA
--- NOTE | 2019-08-15 14:38 | ED Physician Documentation ---
PD HPI DYSPNEA - Stated complaint Stated Complaint: SOA - Chief complaint Chief Complaint: Cardiac - History obtained from History obtained from: Patient - History of Present Illness Timing - onset: How many weeks ago (2-3) Timing - onset during: Light activity Timing - duration: Weeks (2-3 weeks of increased dyspnea, some cough, and bilateral leg edema. started on Lasix by PMD without improvement. Has been using compressive socks. Did improved some with Zpack and steroid increase (baseline 10 mg daily, was increased to Pred taper starting at 60 mg, then 40 then 20 and has gotten back to her baseline 10 mg. Has symptoms developing in past several days to a week again. Now with some green tinged sputum as wel, and no improvement in leg edema both legs.) Timing - details: Gradual onset, Still present Inciting event(s): URI, Other (URI symptoms with cough and dyspnea, though also having bilateral leg edema.). No: Out of meds, Immobilization/travel Improved by: O2, Rest. No: Sitting up Worsened by: No: Laying flat Associated symptoms: Cough, Wheezing, Bilateral edema. No: Fever Recently seen: Emergency Dept (2 weeks ago) Review of Systems Constitutional: reports: Myalgias, Fatigue. denies: Fever, Chills, Weight Loss Nose: denies: Rhinorrhea / runny nose, Congestion Throat: denies: Sore throat Respiratory: reports: Cough Skin: denies: Rash, Lesions Musculoskeletal: denies: Neck pain, Back pain Neurologic: reports: Generalized weakness. 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 - Present Medications Home Medications: Ambulatory Orders Medication Instructions Recorded Confirmed Losartan Potassium 0 mg PO DAILY 11/26/16 02/02/19 dilTIAZem HCL [Diltiazem HCl] 0 mg PO DAILY 11/26/16 02/02/19 Benzonatate [Tessalon Perle] 100 mg PO PRN PRN 11/30/18 02/02/19 Albuterol 2.5 mg INH DAILY 02/01/19 02/01/19 Prednisone 10 mg PO DAILY 02/01/19 02/01/19 Azithromycin 1 tab PO DAILY #4 tablet 07/28/19 predniSONE [Deltasone] 20 mg PO [id number] #21 tab 07/28/19 Albuterol Sulfate [Albuterol 2 puffs IH QID #1 hfa.aer.ad 08/15/19 Sulfate Hfa] Benzonatate [Tessalon Perle] 100 mg PO TID PRN #20 capsule 08/15/19 Doxycycline Monohydrate 100 mg PO BID #14 tablet 08/15/19 - Allergies Allergies/Adverse Reactions: Allergies Allergy/AdvReac Type Severity Reaction Status Date / Time codeine Allergy Nausea Verified 07/28/19 15:25 - Living Situation Living Situation: reports: With spouse/s.o. Living Arrangement: reports: At home - Social History Does the pt smoke?: No Smoking Status: Never smoker Does the pt drink ETOH?: No Does the pt have substance abuse?: No - Immunizations Immunizations are current?: Yes - POLST Patient has POLST: Yes PD ED PE NORMAL - Vitals Vital signs reviewed: Yes (sats are good on her usual 2 lpm NC. ) - General General: Alert and oriented X 3, No acute distress, Well developed/nourished - HEENT HEENT: Pharynx benign - Neck Neck: Supple, no meningeal sign, No adenopathy, No JVD - Cardiac Cardiac: RRR, No murmur - Respiratory Respiratory: No: Clear bilaterally (crinkly sounds, more on right c/w fibrosis. No coarse wetness. Some prolonged resp but no over wheeze. ) - Abdomen Abdomen: Soft, Non tender - Derm Derm: Normal color, Warm and dry - Extremities Extremities: No tenderness to palpate, Normal ROM s pain, Other (1+ edema in both lower legs with some tenderness both calves, more to the right. ) - Neuro Neuro: Alert and oriented X 3, No motor deficit, Normal speech Results - Vitals Vitals: Vital Signs - 24 hr 08/15/19 08/15/19 08/15/19 12:50 12:54 15:50 Temperature 36.8 C Heart Rate 60 74 Respiratory 18 17 Rate Blood Pressure 118/86 H O2 Saturation 86 L 95 05/08/15/19 08/15/19 16:14 18:50 19:29 Temperature Heart Rate 91 99 99 Respiratory 26 H 21 18 Rate Blood Pressure 125/81 H 127/61 127/61 O2 Saturation 100 100 100 Oxygen O2 Source Room air Oxygen Flow Rate 2 - EKG (time done) 13:08 Rate: Rate (enter#) (111) Rhythm: Sinus tachycardia [place]: Normal Intervals: Normal CT QRS: Normal Ischemia: Normal ST segments. No: ST elevation c/w ischemia, ST depression - Labs Labs: Laboratory Tests 08/15/19 08/15/19 08/15/19 13:08 13:08 13:08 WBC 18.1 H RBC 4.04 L Hgb 13.9 Hct 42.1 MCV 104.2 H MCH 34.4 H MCHC 33.0 RDW 18.2 H Plt Count 225 MPV 9.1 Neut # (Auto) 15.2 H Lymph # (Auto) 1.6 Major # (Auto) 0.9 Eos # (Auto) 0.0 Baso # (Auto) 0.0 Absolute Nucleated RBC 0.02 Nucleated RBC % 0.1 Sodium 138 Potassium 3.5 Chloride 104 Carbon Dioxide 19 L Anion Gap 15.0 H BUN 17 Creatinine 0.9 Estimated GFR (MDRD) 61 L Glucose 110 H Calcium 9.1 Magnesium Total Bilirubin 0.8 AST 25 ALT 15 Alkaline Phosphatase 119 Troponin I High Sens 45.5 H* B-Natriuretic Peptide Total Protein 6.8 Albumin 3.2 Globulin 3.6 Albumin/Globulin Ratio 0.9 L Lipase 37 08/15/19 08/15/19 08/15/19 13:08 13:08 17:51 WBC RBC Hgb Hct MCV MCH MCHC RDW Plt Count MPV Neut # (Auto) Lymph # (Auto) Major # (Auto) Eos # (Auto) Baso # (Auto) Absolute Nucleated RBC Nucleated RBC % Sodium Potassium Chloride Carbon Dioxide Anion Gap BUN Creatinine Estimated GFR (MDRD) Glucose Calcium Magnesium 2.0 Total Bilirubin AST ALT Alkaline Phosphatase Troponin I High Sens 48.5 H* B-Natriuretic Peptide 228 H Total Protein Albumin Globulin Albumin/Globulin Ratio Lipase - Rads (name of study) chest xray Radiology: Prelim report reviewed (similar changes c/w asbestosis/fibrosis with haziness infiltrate right base.), See rad report duplex venous both legs Radiology: Prelim report reviewed (no DVT), See rad report PD MEDICAL DECISION MAKING - ED course Complexity details: reviewed results (CXR showing usual fibrosis, with hazy right base. Bedside U/S did not show obvious pericardiale ffusion. She felt better with MDI doses with spacer. Feels able to go home.), considered differential (possible mild infiltrate right base. Her sats are good on just 2 lpm, and unlabored breathing. Does not appear to need hospitalization. ), d/w patient, d/w product/industry consultant (iron worker [facility] at [facility] - who felt some short in crease in steroid is good, and does not need taper. To Rx with abx. ) Departure - Departure Disposition: Home, Self Care Clinical Impression: Pulmonary fibrosis, Leg edema Dyspnea Qualifiers: Dyspnea type: shortness of breath Qualified Code(s): R06.02 - Shortness of breath Pneumonia Qualifiers: Pneumonia type: due to unspecified organism Laterality: right Lung location: lower lobe of lung Qualified Code(s): J18.9 - Pneumonia, unspecified organism Condition: Stable Record reviewed to determine appropriate education?: Yes Instructions: ED Dyspnea Shortness of Breath, ED Pneumonia Adult Follow-Up: Vandana Holloway MD [Primary Care Provider] - Ranulfo Engel MD [Physician No Access] - Prescriptions: Albuterol Sulfate [Albuterol Sulfate Hfa] 2 puffs IH QID #1 hfa.aer.ad Benzonatate [Tessalon Perle] 100 mg PO TID PRN #20 capsule PRN Reason: Cough Doxycycline Monohydrate 100 mg PO BID #14 tablet Comments: Your ultrasound was normal without any signs of blood clots. Continue with the compression socks and elevating your legs. You can continue the furosemide diuretic if you wish though it does not sound like it was really having much effect. He will be okay to stop it as well. Increase your prednisone from 10 to 20 mg for 5 days. Meanwhile be in contact with your destination imagination coordinator to decide dosing after that. Use doxycycline antibiotic twice daily for a week. You can use Tessalon if needed for cough suppression. Use the albuterol inhaler 2 to 3 puffs 3 or 4 times a day in the short-term as there may be some benefit from the albuterol now with the current symptoms even if it does not help on the pulmonary fibrosis in the long-term. Contact your primary care and destination imagination coordinator in the next couple of days for further guidance. Return if worse. Discharge Date/Time: 08/15/19 19:40
[2019-08-15] MEDS ORDERED: ALBUTEROL 1 PUFF INH STA (15:09)
[2019-08-15] MEDS ORDERED: BENZONATATE 100 MG CAPSULE PO STA (15:09)
[2019-08-15] MEDS ORDERED: DEXAMETHASONE 10 MG/ML VIAL IVP STA (15:09)
[2019-08-15] MEDS ORDERED: SODIUM CHLORIDE 0.9% 1,000 ML IV STA (15:11)
--- NOTE | 2019-08-15 17:29 | Ultrasound Report ---
Reason: legs swelling; dyspnea Procedure Date: 08/15/2019 Accession Number: [id number] / [id number] Procedure: US - Duplex Ext Veins Bilateral CPT Code: Final Report FULL RESULT: EXAM: BILATERAL LOWER EXTREMITY VENOUS ULTRASOUND EXAM DATE: 08/15/2019 04:14 PM. CLINICAL HISTORY: Legs swelling; dyspnea. COMPARISON: None. TECHNIQUE: Real-time sonographic vascular imaging was performed by the livestock speculator through the lower extremities utilizing both color-flow and Doppler spectral analysis. Multiple sales representative publications static images were saved for review. The calf veins were well seen due to significant calf edema and patient was sensitive to the probe during the exam. FINDINGS: Right: Common Femoral Vein (CFV): Normal. CFV-GSV Junction: Normal. Profunda Femoral Vein (PFV): Normal. Femoral Vein (FV) Prox: Normal. Femoral Vein (FV) Mid: Normal. Femoral Vein (FV) Dist: Normal. Popliteal Vein: Normal. Posterior Tibial Veins: Normal. Peroneal Veins: Normal. Left: Common Femoral Vein (CFV): Normal. CFV-GSV Junction: Normal. Profunda Femoral Vein (PFV): Normal. Femoral Vein (FV) Prox: Normal. Femoral Vein (FV) Mid: Normal. Femoral Vein (FV) Dist: Normal. Popliteal Vein: Normal. Posterior Tibial Veins: Normal. Peroneal Veins: Normal. Other: Bilateral calf edema. Medial left knee there is a 2.3 x 0.9 x 1.9 cm fluid collection. IMPRESSION: 1. No evidence for deep venous thrombosis bilaterally. 2. Fluid along the medial left knee, may be due to effusion or soft tissue injury, not in typical location of a Verduzco's cyst. RADIA
[2019-08-15] MEDS ORDERED: cefTRIAXone 1 GM VIAL IVP STA (17:43)
[2019-08-15] MEDS ORDERED: DOXYCYCLINE 100 MG TABLET PO STA (17:43)
[2019-08-15 18:51] VITALS: BP 127/61
== END 2019-08-15 19:40 | disposition home or self-care (01) ==
LOC: ED 12:46
DX: J18.9 Pneumonia, unspecified organism (principal); J84.10 Pulmonary fibrosis, unspecified; R60.0 Localized edema; I10 Essential (primary) hypertension; I49.3 Ventricular premature depolarization; I44.4 Left anterior fascicular block
CPT/HCPCS: 36415; 71045; 80053; 83690; 83735; 83880; 84484; 85025; 93005; 93970; 94640; 96361; 96374; 96375; 99284; 99285; A9270; U0004; 81599

== ENCOUNTER 2019-09-09 12:43 | Outpatient (CLI) | payer MEDICARE | END 2019-09-09 12:44 | disposition EMS.NT | LOC: EMS 12:43 | PROVIDERS: ATTEND Surgery | DX: R00.2 Palpitations (principal) ==

== ENCOUNTER 2019-09-12 20:31 | Outpatient (CLI) | payer MEDICARE | END 2019-09-12 20:32 | disposition critical access hospital (66) | LOC: EMS 20:31 | PROVIDERS: ATTEND Surgery | DX: R53.1 Weakness (principal); R11.0 Nausea | CPT/HCPCS: A0425; A0429 ==

== ENCOUNTER 2019-09-12 20:38 | Inpatient (IN) | payer MEDICARE ==
--- NOTE | 2019-09-12 20:55 | ED Physician Documentation ---
History of Present Illness - Stated complaint Stated Complaint: WEAKNESS - Chief complaint Chief Complaint: Resp - History obtained from History obtained from: Patient - History of Present Illness Timing: How many weeks ago (2-3) Pain level max: 0 Pain level now: 0 Improved by: rest Worsened by: exertion Associated symptoms: poor appetite, generalized weakness, dyspnea - Additonal information Additional information: c/o approximately 3 weeks of increasing generalized weakness and shortness of breath. She also c/o decreasing appetite over same time frame. she says she was diagnosed with pneuomnia last month (in this ED), and had improvement with antibiotic and increased steroid dose, but symptoms recurred and are now worse. She says she has become too weak to ambulate around her house. Review of Systems Constitutional: reports: Fatigue. denies: Fever, Chills, Myalgias, Sweats Ears: reports: Reviewed and negative Nose: reports: Reviewed and negative Throat: reports: Reviewed and negative Cardiac: reports: Palpitations (rapid palpitations), Pedal edema. denies: Chest pain / pressure Respiratory: reports: Dyspnea, Cough. denies: Hemoptysis, Wheezing GI: reports: Nausea. denies: Abdominal Pain, Vomiting, Constipation, Diarrhea : denies: Dysuria, Frequency Skin: denies: Rash Musculoskeletal: reports: Back pain. denies: Neck pain Neurologic: reports: Generalized weakness. 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 - Present Medications Home Medications: Ambulatory Orders Medication Instructions Recorded Confirmed Losartan Potassium 0 mg PO DAILY 11/26/16 02/02/19 dilTIAZem HCL [Diltiazem HCl] 0 mg PO DAILY 11/26/16 02/02/19 Benzonatate [Tessalon Perle] 100 mg PO PRN PRN 11/30/18 02/02/19 Albuterol 2.5 mg INH DAILY 02/01/19 02/01/19 Prednisone 10 mg PO DAILY 02/01/19 02/01/19 Azithromycin 1 tab PO DAILY #4 tablet 07/28/19 predniSONE [Deltasone] 20 mg PO [id number] #21 tab 07/28/19 Albuterol Sulfate [Albuterol 2 puffs IH QID #1 hfa.aer.ad 08/15/19 Sulfate Hfa] Benzonatate [Tessalon Perle] 100 mg PO TID PRN #20 capsule 08/15/19 Doxycycline Monohydrate 100 mg PO BID #14 tablet 08/15/19 - Allergies Allergies/Adverse Reactions: Allergies Allergy/AdvReac Type Severity Reaction Status Date / Time codeine Allergy Nausea Verified 07/28/19 15:25 - Social History Does the pt smoke?: No Smoking Status: Never smoker Does the pt drink ETOH?: No Does the pt have substance abuse?: No - Immunizations Immunizations are current?: Yes - POLST Patient has POLST: Yes PD ED PE NORMAL - Vitals Vital signs reviewed: Yes - General General: Alert and oriented X 3, Well developed/nourished - HEENT HEENT: Moist mucous membranes - Neck Neck: Supple, no meningeal sign - Cardiac Cardiac: No murmur - Respiratory Respiratory: No respiratory distress - Abdomen Abdomen: Soft, Non tender - Back Back: No CVA TTP - Derm Derm: Normal color, Warm and dry - Neuro Neuro: Alert and oriented X 3, supervisor coil springs 2-12 intact, No sensory deficit, Other (no focal weakness, but unable to sit up in bed without assistance) Eye Opening: Spontaneous Motor: Obeys Commands Verbal: Oriented GCS Score: 15 PD ED PE EXPANDED - Respiratory Respiratory: Decreased breath sounds, Other (bilateral course breath sounds, overall diminished breath sounds) - Extremities Extremities: Pedal edema bilateral (ankles/feet) Results - Vitals Vitals: Vital Signs - 24 hr 09/12/19 09/12/19 09/12/19 20:45 20:52 21:46 Temperature 36.1 C L Heart Rate 93 90 84 Respiratory 22 18 16 Rate Blood Pressure 144/91 H 144/91 H 154/86 H O2 Saturation 73 L 100 99 09/12/19 09/12/19 22:30 22:51 Temperature Heart Rate 88 96 Respiratory 16 20 Rate Blood Pressure 120/69 O2 Saturation 100 Oxygen O2 Source Nasal cannula Oxygen Flow Rate 3 - EKG (time done) No standard instances Rate: Rate (enter#) (90) Rhythm: NSR [place]: LAD, Anterior hemiblock QRS: Poor R wave progression Ischemia: Normal ST segments - Labs Labs: Laboratory Tests 09/12/19 09/12/19 09/12/19 21:02 21:02 21:02 WBC 13.6 H RBC 4.15 L Hgb 14.5 Hct 43.9 MCV 105.8 H MCH 34.9 H MCHC 33.0 RDW 18.6 H Plt Count 212 MPV 10.1 Neut # (Auto) Not Reportable Lymph # (Auto) Not Reportable [place] # (Auto) Not Reportable Eos # (Auto) Not Reportable Baso # (Auto) Not Reportable Absolute Nucleated RBC Not Reportable Total Counted 100 Band Neuts % (Manual) 2 Abnorm Lymph % (Manual) 0 Metamyelocytes % 1 H Myelocytes % 1 H Nucleated RBC % Not Reportable Neutrophils # (Manual) 10.3 H Lymphocytes # (Manual) 1.6 Monocytes # (Manual) 1.4 H Eosinophils # (Manual) 0.0 Basophils # (Manual) 0.0 Differential Comment MANUAL DIFFERENTIAL Platelet Estimate NORMAL (130-450,000) RBC Morph Micro Appear NORMAL APPEARANCE ESR Sodium 141 Potassium 3.1 L Chloride 104 Carbon Dioxide 24 Anion Gap 13.0 BUN 18 Creatinine 0.6 Estimated GFR (MDRD) 97 Glucose 106 H Lactic Acid Calcium 9.0 Total Bilirubin 0.9 AST 18 ALT 17 Alkaline Phosphatase 116 Total Creatine Kinase CK-MB (CK-2) Troponin I High Sens C-Reactive Protein B-Natriuretic Peptide 153 H Total Protein 6.5 L Albumin 3.0 L Globulin 3.5 Albumin/Globulin Ratio 0.9 L Lipase 43 TSH Urine Color Urine Clarity Urine pH Ur Specific [place] Urine Protein Urine Glucose (UA) Urine Ketones Urine Occult Blood Urine Nitrite Urine Bilirubin Urine Urobilinogen Ur Leukocyte Esterase Ur Microscopic Review Urine Culture Comments 09/12/19 09/12/19 09/12/19 21:02 21:02 21:02 WBC RBC Hgb Hct MCV MCH MCHC RDW Plt Count MPV Neut # (Auto) Lymph # (Auto) [place] # (Auto) Eos # (Auto) Baso # (Auto) Absolute Nucleated RBC Total Counted Band Neuts % (Manual) Abnorm Lymph % (Manual) Metamyelocytes % Myelocytes % Nucleated RBC % Neutrophils # (Manual) Lymphocytes # (Manual) Monocytes # (Manual) Eosinophils # (Manual) Basophils # (Manual) Differential Comment Platelet Estimate RBC Morph Micro Appear ESR Sodium Potassium Chloride Carbon Dioxide Anion Gap BUN Creatinine Estimated GFR (MDRD) Glucose Lactic Acid 1.7 Calcium Total Bilirubin AST ALT Alkaline Phosphatase Total Creatine Kinase CK-MB (CK-2) Troponin I High Sens 35.9 H* C-Reactive Protein B-Natriuretic Peptide Total Protein Albumin Globulin Albumin/Globulin Ratio Lipase TSH 2.78 Urine Color Urine Clarity Urine pH Ur Specific [place] Urine Protein Urine Glucose (UA) Urine Ketones Urine Occult Blood Urine Nitrite Urine Bilirubin Urine Urobilinogen Ur Leukocyte Esterase Ur Microscopic Review Urine Culture Comments 09/12/19 09/12/19 09/12/19 21:02 21:02 21:02 WBC RBC Hgb Hct MCV MCH MCHC RDW Plt Count MPV Neut # (Auto) Lymph # (Auto) [place] # (Auto) Eos # (Auto) Baso # (Auto) Absolute Nucleated RBC Total Counted Band Neuts % (Manual) Abnorm Lymph % (Manual) Metamyelocytes % Myelocytes % Nucleated RBC % Neutrophils # (Manual) Lymphocytes # (Manual) Monocytes # (Manual) Eosinophils # (Manual) Basophils # (Manual) Differential Comment Platelet Estimate RBC Morph Micro Appear ESR 19 Sodium Potassium Chloride Carbon Dioxide Anion Gap BUN Creatinine Estimated GFR (MDRD) Glucose Lactic Acid Calcium Total Bilirubin AST ALT Alkaline Phosphatase Total Creatine Kinase 16 L CK-MB (CK-2) 3.0 Troponin I High Sens C-Reactive Protein B-Natriuretic Peptide Total Protein Albumin Globulin Albumin/Globulin Ratio Lipase TSH Urine Color Urine Clarity Urine pH Ur Specific [place] Urine Protein Urine Glucose (UA) Urine Ketones Urine Occult Blood Urine Nitrite Urine Bilirubin Urine Urobilinogen Ur Leukocyte Esterase Ur Microscopic Review Urine Culture Comments 09/12/19 09/12/19 21:02 22:15 WBC RBC Hgb Hct MCV MCH MCHC RDW Plt Count MPV Neut # (Auto) Lymph # (Auto) [place] # (Auto) Eos # (Auto) Baso # (Auto) Absolute Nucleated RBC Total Counted Band Neuts % (Manual) Abnorm Lymph % (Manual) Metamyelocytes % Myelocytes % Nucleated RBC % Neutrophils # (Manual) Lymphocytes # (Manual) Monocytes # (Manual) Eosinophils # (Manual) Basophils # (Manual) Differential Comment Platelet Estimate RBC Morph Micro Appear ESR Sodium Potassium Chloride Carbon Dioxide Anion Gap BUN Creatinine Estimated GFR (MDRD) Glucose Lactic Acid Calcium Total Bilirubin AST ALT Alkaline Phosphatase Total Creatine Kinase CK-MB (CK-2) Troponin I High Sens C-Reactive Protein 2.9 H B-Natriuretic Peptide Total Protein Albumin Globulin Albumin/Globulin Ratio Lipase TSH Urine Color YELLOW Urine Clarity CLEAR Urine pH 6.5 Ur Specific [place] 1.020 Urine Protein TRACE Urine Glucose (UA) NEGATIVE Urine Ketones 15 H Urine Occult Blood NEGATIVE Urine Nitrite NEGATIVE Urine Bilirubin NEGATIVE Urine Urobilinogen 0.2 (NORMAL) Ur Leukocyte Esterase NEGATIVE Ur Microscopic Review NOT INDICATED Urine Culture Comments NOT INDICATED - Rads (name of study) chest xray Radiology: Prelim report reviewed, See rad report PD MEDICAL DECISION MAKING - ED course Complexity details: reviewed old records, reviewed results, re-evaluated patient, considered differential, d/w patient ED course: unable to sit up in bed without significant assistance and was too weak to attempt to sit over edge of bed (let alone stand/bear weight). Departure - Departure Disposition: ED Place in Observation Clinical Impression: Weakness, Dyspnea Condition: Stable Discharge Date/Time: 09/13/19 00:48
[2019-09-12 21:09] LABS: BASOPHILS % (AUTO) 0.3 %; EOSINOPHILS % (AUTO) 0.2 %; HGB - HEMOGLOBIN 14.5 g/dL (12.0-16.0); LYMPHOCYTES % (AUTO) 10.7 %; MEAN CORPUSCULAR HEMOGLOBIN 34.9 pg (27.0-31.0); MEAN CORPUSCULAR VOLUME 105.8 fL (81.0-99.0); MEAN PLATELET VOLUME 10.1 fL (7.9-10.8); MONOCYTES % (AUTO) 3.6 %; NEUTROPHILS % (AUTO) 80.2 %; PLT - PLATELET COUNT 212 10^3/uL (130-450); RED BLOOD COUNT 4.15 10^6/uL (4.20-5.40); RED CELL DISTRIBUTION WIDTH 18.6 % (12.0-15.0); WHITE BLOOD COUNT 13.6 x10^3/uL (4.8-10.8)
[2019-09-12 21:16] LABS: ABNORMAL LYMPHS % (MANUAL) 0 %
[2019-09-12 21:24] LABS: ALBUMIN/GLOBULIN RATIO 0.9 (1.0-2.2); BILIRUBIN,TOTAL 0.9 mg/dL (0.2-1.0); CREATININE 0.6 mg/dL (0.4-1.0); TOTAL PROTEIN 6.5 g/dL (6.7-8.2)
[2019-09-12 21:42] LABS: BAND NEUTROPHILS % (MANUAL) 2 %; DIFFERENTIAL COMMENT MANUAL DIFFERENTIAL; LYMPHOCYTES # (MANUAL) 1.6 10^3/uL (1.5-3.5); LYMPHOCYTES % (MANUAL) 12 %; METAMYELOCYTES % (MANUAL) 1 %; MONOCYTES # (MANUAL) 1.4 10^3/uL (0.0-1.0); MYELOCYTES % (MANUAL) 1 %; PLATELET ESTIMATE, MANUAL NORMAL (130-450,000) (NORMAL); RBC MORPHOLOGY (MULTIPLE) NORMAL APPEARANCE (NORMAL)
--- NOTE | 2019-09-12 21:49 | XRAY Report ---
PROCEDURE: Chest 1 View X-Ray INDICATIONS: SOA TECHNIQUE: One view of the chest was acquired. COMPARISON: 08/15/2019 FINDINGS: Surgical changes and devices: None. Lungs and pleura: Right perihilar soft tissue opacity and retraction of the thorax. Calcified pleural plaquing along the right diaphragm. Low lung volumes. Diffuse coarsening of the interstitial marking s. Mediastinum: Mediastinal contours appear normal. Heart size is normal. Bones and chest wall: No suspicious bony lesions. Overlying soft tissues appear unremarkable. IMPRESSION: 1. No significant changes compared to the prior study. Likely no acute process. 2. Chronic changes of pleural plaquing and asbestosis, and right hemithorax volume loss. Reviewed by: Emma Galan MD on 09/12/2019 9:48 PM PDT Approved by: Emma Galan MD on 09/12/2019 9:48 PM PDT Station ID: [id number]
[2019-09-12] MEDS ORDERED: IPRATROPIUM/ALBUTEROL 3 ML NEB INH STA (22:11)
[2019-09-12] MEDS ORDERED: methylPREDNISolone SUCCINATE 125 MG/2 ML VIAL IVP STA (22:11)
[2019-09-12 22:26] LABS: GLUCOSE, URINE (UA) NEGATIVE (NEGATIVE); KETONES,URINE (UA) 15 mg/dL (NEGATIVE); LEUKOCYTE ESTERASE, URINE NEGATIVE (NEGATIVE); NITRITE,URINE NEGATIVE (NEGATIVE); OCCULT BLOOD,URINE NEGATIVE (NEGATIVE); PH,URINE 6.5 PH (5.0-7.5); PROTEIN,URINE TRACE mg/dL (NEGATIVE); UROBILINOGEN,URINE 0.2 (NORMAL) E.U./dL (NORMAL)
[2019-09-12 22:28] LABS: BILIRUBIN,URINE NEGATIVE (NEGATIVE); CLARITY,URINE CLEAR (CLEAR); ICTOTEST,URINE NEGATIVE
[2019-09-12] MEDS ORDERED: POTASSIUM CHLORIDE 20 MEQ TABLET PO STA (23:31)
--- NOTE | 2019-09-12 23:33 | HISTORY & PHYSICAL EXAMINATION ---
Chief Complaint - Chief Complaint Chief Complaint: Shortness of breath History of Present Illness - Admitted From Admitted From:: Home - History Obtained From Records Reviewed: Yes History obtained from: Patient, ER Physician, EMR - History of Present Illness HPI Comment/Other: This is a very pleasant 74-year-old female with a past medical history s ignificant for pulmonary fibrosis on 3 L of oxygen at baseline, hypertension who presents today complaining of worsening shortness of breath. She states this has been going on since July and she has been seen in the emergency department twice for similar symptoms. She was diagnosed with pneumonia during her last visit at the end of July and discharged on a higher prednisone taper which she is currently taking as well as antibiotics which she had completed. She completed 7 days of doxycycline. She is currently taking 20 mg of prednisone. She states she has been on and off of prednisone for the past 3 years but has been on it for the last few months. Her casing puller is Dr. Engel at the [facility]. She reports chronic cough but denies any fevers, chills, sore throat, nasal congestion. Reports no recent sick contacts. She has not been leaving the house nor has her . She denies any chest pain or lower extremity edema. She is also complaining of bilateral lower extremity weakness. She states this is been going on for the past 3 weeks. It began after she lifted her grandson 3 weeks ago. She reported having lower back pain but at this time she reports no pain. Denies any numbness or tingling in her lower extremities. She reports being quite sedentary due to this lower extremity weakness. She normally ambulates with a walker. In the emergency department, she was found to be afebrile with temperature of 36.1 C. She was tachycardic with a heart rate of 90. Her blood pressure was 1 4491. She was not tachypneic and saturating 99% on 3 L via nasal cannula. Lab significant for a count of 13.6 with 2% bands. Potassium was 3.1. Troponin was elevated at 35.9. Her urinalysis was unremarkable. Chest x-ray was unchanged compared to prior imaging studies and showed calcified pleural plaquing along the right diaphragm with diffuse coarsening of interstitial markings. Her EKG shows sinus rhythm with left anterior fascicular block and poor R wave pr ogression which is similar compared to prior EKGs. Given the findings above and her ongoing weakness, medicine was consulted for admission. Patient did receive 125 mg of Solumedrol IV in the emergency department. I did discuss goals of care with the patient and she would like to be a DNR with no mechanical ventilation given her pulmonary fibrosis. She does not want to fill out a POLST form today but would like to do so on an outpatient basis with her primary care provider. 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 He also had hypertension. She reports no other family history to her knowledge. Living arrangement: At home Living Situation: With spouse/s.o. Social History Notes: She lives at home with her . She did smoke about half a pack a day for 5 to 6 years in her early 20s but has not smoked since then. She does not drink alcohol. She ambulates with a walker at baseline. - POLST Patient has POLST: Yes Meds/Allgy - Home Medications Home Medications: Ambulatory Orders Medication Instructions Recorded Confirmed Losartan Potassium 0 mg PO DAILY 11/26/16 02/02/19 dilTIAZem HCL [Diltiazem HCl] 0 mg PO DAILY 11/26/16 02/02/19 Benzonatate [Tessalon Perle] 100 mg PO PRN PRN 11/30/18 02/02/19 Albuterol 2.5 mg INH DAILY 02/01/19 02/01/19 Prednisone 10 mg PO DAILY 02/01/19 02/01/19 Azithromycin 1 tab PO DAILY #4 tablet 07/28/19 predniSONE [Deltasone] 20 mg PO [id number] #21 tab 07/28/19 Albuterol Sulfate [Albuterol 2 puffs IH QID #1 hfa.aer.ad 08/15/19 Sulfate Hfa] Benzonatate [Tessalon Perle] 100 mg PO TID PRN #20 capsule 08/15/19 Doxycycline Monohydrate 100 mg PO BID #14 tablet 08/15/19 - Allergies Allergies/Adverse Reactions: Allergies Allergy/AdvReac Type Severity Reaction Status Date / Time codeine Allergy Nausea Verified 07/28/19 15:25 Review of Systems - Constitutional Constitutional: reports: Weakness. denies: Fatigue, Fever, Chills, Poor appetite - Cardiovascular Cariovascular: reports: Exertional dyspnea, Decr. exercise tolerance. denies: Chest pain, Edema - Respiratory Respiratory: reports: Cough, SOB at rest. denies: Sputum production, SOB with exertion - Gastrointestinal Gastrointestinal: denies: Abdominal pain, Constipation, Diarrhea, Nausea, Vomiting - Genitourinary Genitourinary: denies: Dysuria, Frequency, Urgency, Hematuria - Musculoskeletal Musculoskeletal: reports: Back pain, Muscle weakness. denies: Muscle pain, Stiffness, Limited range of motion, Joint pain - Integumentary Integumentary: denies: Rash - Neurological Neurological: reports: General weakness, Focal weakness, Abnormal gait. denies: Headache, Dizziness, Numbness - Hematologic/Lymphatic Hematologic/Lymphatic: denies: Anemia - All Other Systems All Other Systems: reports: Reviewed and negative Prior Level of Functionality: She ambulates with a walker at baseline. Exam - Vital Signs Reviewed Vital Signs: Yes Vital Signs: Vital Signs x48h Temp Pulse Resp BP Pulse Ox 09/12/19 22:51 96 20 09/12/19 22:30 88 16 120/69 100 09/12/19 21:46 84 16 154/86 H 99 09/12/19 20:52 90 18 144/91 H 100 09/12/19 20:45 36.1 C L 93 22 144/91 H 73 L - Physical Exam General Appearance: positive: No acute distress, Alert Eyes Bilateral: positive: Normal inspection ENT: positive: ENT inspection nml Neck: positive: Nml inspection, Other (Nasal cannule in place.) Respiratory: positive: No respiratory distress, Other (She is not tachypneic. She has diminished breath sounds bilaterally with faint crackles.) Cardiovascular: positive: No murmur, Tachycardia. negative: Irregularly irregular, Bradycardia, Systolic murmur Abdomen: positive: Non-tender, No distention. negative: Tenderness, Guarding, Rebound Skin: positive: No rash, Warm, Dry Extremities: positive: No pedal edema, Other (She has no thoracic or lumbar spine tenderness. No paraspinal muscle tenderness. Straight leg test was negative for any pain. Sensation is intact over the bilateral lower extremities.) Neurologic/Psychiatric: positive: Oriented x3, Other (Sensation is intact over the bilateral lower extremities. She is able to move all 4 extremities. She does complain of lower back pain with some movement of her lower extremities. Lower extremity reflexes appear to be grossly intact. No clonus.). negative: Disoriented to person, Disoriented to place, Disoriented to time Conclusion/Plan - Problem List (1) Dyspnea Conclusion/Plan: She presents with dyspnea which I suspect is related to her underlying pulmonary fibrosis. This does not appear to be in exacerbation she does not have an increase in her oxygen requirements, she is not tachypneic and she reports her symptoms have been going on for over 1 month now including multiple ER visits. Cardiac etiologies will be ruled out given her elevated troponin but there is no suggestion of pulmonary edema on imaging and her BNP is only elevated in the 100s. She did receive Solu-Medrol 125 mg IV in the emergency department. At this time, we will hold off on continuing high-dose steroids and will reassess in the morning. We will asked the daytime provider to speak with the casing puller to discuss any recommendations he may have. Check an echocardiogram. Continue supplemental oxygen as needed. She had a CT angiogram last month which showed no pulmonary embolism or infiltrate and I do not feel that this is worth repeating at this time given the lack of hypoxia or tachypnea. Qualifiers: Dyspnea type: shortness of breath Qualified Code(s): R06.02 - Shortness of breath; R06.00 - Dyspnea, unspecified; R06.01 - Orthopnea (2) Elevated troponin Conclusion/Plan: Her troponin is elevated in the 30s. She reports no chest pain and her EKG shows sinus rhythm with left anterior fascicular block and poor R wave progression which is unchanged compared to prior EKG. During her last visit in the ER, her troponin is actually elevated in the 40s. Suspect this is demand ischemia given her respiratory problems but due to her weakness, we will observe her overnight and trend her troponins. Monitor on telemetry and check echocardiogram. (3) Lower extremity weakness Conclusion/Plan: This occurred after she lifted her grandson 3 weeks ago. Her exam is relatively unremarkable. Straight leg test is negative there is no significant lumbar or paraspinal tenderness and she is neurologically intact in her lower extremities. TSH is within normal limits. CKs are normal. Will obtain lumbar x-rays for the time being and consult physical therapy. I do not feel a MRI would be of benefit at this time. Tylenol as needed for pain. Qualifiers: Laterality: bilateral Qualified Code(s): R29.898 - Other symptoms and signs involving the musculoskeletal system (4) Chronic respiratory failure with hypoxia Conclusion/Plan: This is secondary to her pulmonary fibrosis. She is on her baseline 3 L of oxygen. (5) Pulmonary fibrosis Conclusion/Plan: I suspect this is the cause of her dyspnea which appears to be more chronic r ather than acute. She is on 3 L of oxygen at baseline. Plan as mentioned above for dyspnea. Continue outpatient follow-up with her casing puller at the [facility], Dr. Engel. (6) Leukocytosis Conclusion/Plan: Her white count is elevated at 13,000 but this is improved compared to prior lab readings. This may be due to her chronic steroid use. 2% bands were noted. No obvious source of infection at this time so we will hold off on antibiotics. We will check a CRP and ESR. Recheck CBC in the morning. Check blood cultures. (7) Hypokalemia Conclusion/Plan: Replace orally. (8) Hypertension Conclusion/Plan: Stable. Continue her home losartan. - Lab Results Lab results reviewed: Yes Fish Bones: 09/12/19 21:02 09/12/19 21:02 - Diagnostic Imaging Results Diagnostic Imaging Results: positive: Final report reviewed - EKG Results EKG Interpreted Independently: Yes EKG Comparison: Unchanged from prior EKG EKG Findings: Sinus rhythm with left anterior fascicular block and poor R wave progression. No obvious ischemic changes. Core Measures - Anticipated LOS I expect patient to be DC'd or transferred within 96 hours.: Yes - Issues Hospital Issues and Management Plan: 74-year-old female with pulmonary fibrosis on 3 L of oxygen presents with dyspnea and found to have slightly elevated troponin. Will observe overnight and trend this as well as monitor on telemetry. Will check echocardiogram. PT consult. - DVT/VTE - Prophylaxis VTE/DVT Device ordered at admit?: Yes VTE/DVT Prophylaxis med ordered at admit?: Yes
[2019-09-13] MEDS ORDERED: traMADol 50 MG TABLET PO STA (00:53)
[2019-09-13] MEDS: SODIUM CHLORIDE FLUSH 0.9% 10 ML SYRINGE IVP SCH ×3 (01:30→15:59)
[2019-09-13] MEDS: ACETAMINOPHEN 325 MG TABLET PO PRN ×3 (04:09→13:36)
[2019-09-13 05:44] LABS: BASOPHILS % (AUTO) 0.4 %; EOSINOPHILS % (AUTO) 0.9 %; HGB - HEMOGLOBIN 13.5 g/dL (12.0-16.0); LYMPHOCYTES % (AUTO) 3.8 %; MEAN CORPUSCULAR HEMOGLOBIN 34.4 pg (27.0-31.0); MEAN CORPUSCULAR HGB CONC 32.6 g/dL (32.0-36.0); MEAN CORPUSCULAR VOLUME 105.6 fL (81.0-99.0); MEAN PLATELET VOLUME 9.7 fL (7.9-10.8); MONOCYTES % (AUTO) 1.9 %; NEUTROPHILS % (AUTO) 88.8 %; PLT - PLATELET COUNT 196 10^3/uL (130-450); RED BLOOD COUNT 3.92 10^6/uL (4.20-5.40); RED CELL DISTRIBUTION WIDTH 18.5 % (12.0-15.0); WHITE BLOOD COUNT 12.1 x10^3/uL (4.8-10.8)
[2019-09-13 05:56] LABS: ABNORMAL LYMPHS % (MANUAL) 0 %
[2019-09-13 06:02] LABS: CREATININE 0.5 mg/dL (0.4-1.0); MAGNESIUM 2.1 mg/dL (1.7-2.8); PHOSPHORUS 2.4 mg/dL (2.5-4.6)
[2019-09-13 06:20] LABS: BAND NEUTROPHILS % (MANUAL) 4 %; DIFFERENTIAL COMMENT MANUAL DIFFERENTIAL; LYMPHOCYTES # (MANUAL) 0.6 10^3/uL (1.5-3.5); LYMPHOCYTES % (MANUAL) 5 %; METAMYELOCYTES % (MANUAL) 1 %; MONOCYTES # (MANUAL) 0.4 10^3/uL (0.0-1.0); MYELOCYTES % (MANUAL) 1 %; PLATELET ESTIMATE, MANUAL NORMAL (130-450,000) (NORMAL); RBC MORPHOLOGY (MULTIPLE) NORMAL APPEARANCE (NORMAL)
[2019-09-13] MEDS ORDERED: NEUTRA-PHOS 250 MG TABLET PO SCH (08:00)
[2019-09-13] MEDS: ENOXAPARIN 40 MG/0.4 ML SYRINGE SUBQ SCH (08:07)
[2019-09-13] MEDS: ONDANSETRON 4 MG/2 ML VIAL IVP PRN ×2 (08:07→17:00)
--- NOTE | 2019-09-13 08:59 | XRAY Report ---
PROCEDURE: Lumbar Spine 2 View INDICATIONS: Lower back pain and lower extremity weakness. TECHNIQUE: 2 views of the lumbar spine were acquired. COMPARISON: None. FINDINGS: Bones: 5 [id number] vertebrae are present. There is normal bony alignment. No definite acute vertebral body compression fractures are found but there are areas of increased radiodensity associat ed with reduced vertebral height, seen at L2 and L3, which may reflect acute or chronic compression f ractures involving only the upper endplate. A similar pattern is present at the lower endplate of L1. Chronicity is uncertain. No suspicious bony lesions. Soft tissues: Overlying bowel gas pattern is normal. No suspicious soft tissue calcifications. IMPRESSION: Osteopenia is present, there is degenerative disc disease that becomes progressively mor e prominent from L3 inferiorly and facet osteoarthritis is moderately severe at L4-5 and especially L 5-S1. Spinal and foraminal stenosis likely is present at these lower 2 levels. As discussed above there is osteopenia and potential for osteoporotic compression fractures in this p atient. At the upper endplate of L2 and L3 there is sclerosis and height reduction of approximately 1 5% of the vertebral body, in a pattern suspicious for prior compression fractures, age indeterminant. A lesser degree of such involvement is noted at the inferior endplate of L1. MR scanning can accurat suri establish chronicity of these abnormalities. Reviewed by: Melchor Estrella MD on 09/13/2019 8:58 AM PDT Approved by: Melchor Estrella MD on 09/13/2019 8:58 AM PDT Station ID: [id number]
--- NOTE | 2019-09-13 09:50 | PHARMACY PROGRESS NOTE ---
- Best Possible Medication History Admit Date and Time: 09/12/19 8504 Processed by: Pharmacy Medication History completed: Yes Secondary Source(s): Physician records, Pharmacy records, Insurance records As the person ultimately responsible for medication therapy, providers are able to order a medication from an existing home medication list in [facility] via the "Reconcile Routine" prior to Confirmation of that medication by it support technician. Such practice is discouraged except when the physician, in their clinical judgment, deems that a medical need exists for a medication without regard to previous use.
[2019-09-13] MEDS ORDERED: ALPRAZolam 0.25 MG TABLET PO PRN (10:08)
[2019-09-13] MEDS: diltiaZEM CD 180 MG CAPSULE PO SCH (11:08)
[2019-09-13] MEDS: predniSONE 10 MG TABLET PO SCH (11:08)
[2019-09-13] MEDS: traMADol 50 MG TABLET PO PRN ×2 (11:29→21:30)
[2019-09-13] MEDS ORDERED: methylPREDNISolone SUCCINATE 40 MG/ML VIAL IVP SCH (14:00)
--- NOTE | 2019-09-13 14:26 | PROVIDER PROGRESS NOTE ---
Assessment/Plan - Problem List (1) Dyspnea Qualifiers: Dyspnea type: shortness of breath Qualified Code(s): R06.02 - Shortness of breath; R06.00 - Dyspnea, unspecified; R06.01 - Orthopnea Assessment/Plan: 09/12, Patient report she was diagnosis of pulmonary Fibrosis three years ago. She gradually become more difficulty breathing. Patient report she take 10 mg steroid daily. 39 patient still have 100% of sats with 3 liter of oxygen, patient report she takes 3 liter of oxygen at home.CXR reveals stable. Pt did receive Solu-Medrol 125 mg IV in the emergency department, agree Patient does not show any acute exacerbation at this time, we will hod on continuing high- dose steroids and Will resume home PO low dosage of steroid. Continue breathing treatment as needed (2) Elevated troponin Conclusion/Plan: 09/12,Patient's ECHO was unremarkable, Has a slightly elevated troponin but is stable, Patient has chronic slightly elevated troponin, Unchanged EKG. Continue telemetry and vital signs monitor patient (3) Lower extremity weakness Conclusion/Plan: 09/12,Her edema On bilaterally lower extremity is relatively unremarkable, neurologically exam are intact, good pulsation. Echo is unremarkable. Spinal x- ray will review osteopenia and the possible osteoporotic compression fracture. Patient is a prescript of calcium carbonate, vitamin D3, pain control. (4) Chronic respiratory failure with hypoxia Conclusion/Plan: 09/12,stable, This is secondary to her pulmonary fibrosis. She is on her baseline 3 L of oxygen. advise pt followup with her office bookkeeper (5) Pulmonary fibrosis Conclusion/Plan: 09/12,Since the patient was diagnosis with pulmonary fibrosis, she reported she graduated become difficulty breathing, she chronically take steroid in the home. CXR reveals stable. it is likely the cause of her dyspnea which appears to be more chronic rather than acute. She is on 3 L of oxygen at baseline. Plan as mentioned above for dyspnea. Continue outpatient follow-up with her office bookkeeper at the [facility], [place], operated by [facility], Dr. Engel. (6) Leukocytosis Conclusion/Plan: 09/12,Her white count is elevated at 13,000 but this is improved compared to prior lab readings. This may be due to her chronic steroid use. pt has No obvious source of infection at this time so we will hold off on antibiotics. We will check a CRP and ESR. Recheck CBC in the morning. Check blood cultures. (7) Hypokalemia Conclusion/Plan: Replace orally. (8) Hypertension Conclusion/Plan: Stable. Continue her home losartan. - Current Meds Current Meds: Current Medications Generic Name Dose Route Start Last Admin Trade Name Freq PRN Reason Stop Dose Admin Acetaminophen 650 mg 09/12/19 23:28 09/13/19 13:36 Tylenol PO 650 mg Q4HR PRN Administration Pain 1 to 4 Diltiazem HCl 360 mg 09/13/19 11:00 09/13/19 11:08 Cardizem Cd PO 360 mg DAILY MARYCHUY Administration Enoxaparin Sodium 40 mg 09/13/19 09:00 09/13/19 08:07 Lovenox SUBQ 40 mg DAILY MARYCHUY Administration Ondansetron HCl 4 mg 09/12/19 23:28 09/13/19 08:07 Zofran Inj IVP 4 mg Q6HR PRN Administration Nausea / Vomiting Prednisone 10 mg 09/13/19 12:00 09/13/19 11:08 Deltasone PO 10 mg DAILYWM MARYCHUY Administration Sodium Chloride 10 ml 09/13/19 01:00 09/13/19 08:07 Normal Saline Flush 0.9% IVP 20 ml 0100,0900,1700 MARYCHUY Administration Tramadol HCl 50 mg 09/13/19 10:11 09/13/19 11:29 Ultram PO 50 mg Q8HR PRN Administration PAIN - Lab Result Fish Bone Diagrams: 09/13/19 04:48 09/13/19 04:48 - Additional Planning My Orders: My Active Orders 09/13/19 07:54 Albuterol 2.5 mg INH RTQ4H PRN 09/13/19 07:55 Nebulizer/MDI Tx. [RC] QID Resp Teach Nebulizer/MDI [RC] .ONCE 09/13/19 09:31 Nutrition Consult [CONS] Routine 09/13/19 10:08 ALPRAZolam [Xanax] 0.5 mg PO TID PRN Benzonatate [Tessalon] 100 mg PO TID PRN 09/13/19 10:11 traMADol [Ultram] 50 mg PO Q8HR PRN 09/13/19 11:00 diltiaZEM CD [Cardizem Cd] 360 mg PO DAILY 09/13/19 12:00 predniSONE [Deltasone] 10 mg PO DAILYWM 09/13/19 14:22 Ketorolac Inj (15Mg) [Toradol Inj (15Mg)] 15 mg IVP Q6HR PRN 09/13/19 16:00 Cholecalciferol [Vitamin D3] 50 mcg PO DAILY Multivitamin W/Minerals [Theragran M] 1 tab PO DAILYWM 09/13/19 21:00 Baclofen [Lioresal] 10 mg PO BID Calcium Carbonate [Tums] 500 mg PO BID Subjective - Subjective Patient Reports: Resting Comfortably Objective Vital Signs: Vital Signs - 24 hr 09/12/19 09/12/19 09/12/19 20:45 20:52 21:46 Temperature 36.1 C L Heart Rate 93 90 84 Heart Rate [ Brachial] Respiratory 22 18 16 Rate Blood Pressure 144/91 H 144/91 H 154/86 H Blood Pressure [Left Brachial artery] Blood Pressure [Right Brachial artery] O2 Saturation 73 L 100 99 09/12/19 09/12/19 09/12/19 22:30 22:51 23:51 Temperature Heart Rate 88 96 99 Heart Rate [ Brachial] Respiratory 16 20 16 Rate Blood Pressure 120/69 127/70 Blood Pressure [Left Brachial artery] Blood Pressure [Right Brachial artery] O2 Saturation 100 99 09/13/19 09/13/19 09/13/19 00:48 01:00 04:05 Temperature 36.3 C L 36.3 C L Heart Rate 100 Heart Rate [ 86 91 Brachial] Respiratory 16 20 18 Rate Blood Pressure 133/92 H Blood Pressure [Left Brachial artery] Blood Pressure 120/79 130/90 H [Right Brachial artery] O2 Saturation 100 100 100 09/13/19 09/13/19 09/13/19 08:08 10:28 11:29 Temperature 36.3 C L 36.6 C Heart Rate Heart Rate [ 99 98 93 Brachial] Respiratory 16 16 Rate Blood Pressure Blood Pressure 111/67 110/85 H [Left Brachial artery] Blood Pressure 111/75 [Right Brachial artery] O2 Saturation 100 95 Oxygen O2 Source Nasal cannula Oxygen Flow Rate 3 I&O (Last 24 Hrs): Intake and Output Totals x24h 09/11/19 09/12/19 09/13/19 23:59 23:59 23:59 Intake Total 50 Output Total 100 Balance -50 General: Alert, Oriented x3, No acute distress HEENT: Atraumatic Neck: Supple Lymphatic: no adenopathy Neuro: Alert, Non Focal, Oriented Times 3 Cardiovascular: Regular rate, Normal S1, Normal S2 Respiratory: Chest non-tender Abdomen: Normal bowel sounds, Soft, No tenderness Extremities: Normal pulses - Results Results: Laboratory Results WBC 12.1 x10^3/uL (4.8-10.8) H 09/13/19 04:48 RBC 3.92 10^6/uL (4.20-5.40) L 09/13/19 04:48 Hgb 13.5 g/dL (12.0-16.0) 09/13/19 04:48 Hct 41.4 % (37.0-47.0) 09/13/19 04:48 MCV 105.6 fL (81.0-99.0) H 09/13/19 04:48 MCH 34.4 pg (27.0-31.0) H 09/13/19 04:48 MCHC 32.6 g/dL (32.0-36.0) 09/13/19 04:48 RDW 18.5 % (12.0-15.0) H 09/13/19 04:48 Plt Count 196 10^3/uL (130-450) 09/13/19 04:48 MPV 9.7 fL (7.9-10.8) 09/13/19 04:48 Neut # (Auto) Not Reportable 09/13/19 04:48 Lymph # (Auto) Not Reportable 09/13/19 04:48 [place] # (Auto) Not Reportable 09/13/19 04:48 Eos # (Auto) Not Reportable 09/13/19 04:48 Baso # (Auto) Not Reportable 09/13/19 04:48 Absolute Nucleated RBC Not Reportable 09/13/19 04:48 Total Counted 100 09/13/19 04:48 Band Neuts % (Manual) 4 % (0-10) 09/13/19 04:48 Abnorm Lymph % (Manual) 0 % 09/13/19 04:48 Metamyelocytes % 1 % (-0) H 09/13/19 04:48 Myelocytes % 1 % (-0) H 09/13/19 04:48 Nucleated RBC % Not Reportable 09/13/19 04:48 Neutrophils # (Manual) 10.9 10^3/uL (1.5-6.6) H 09/13/19 04:48 Lymphocytes # (Manual) 0.6 10^3/uL (1.5-3.5) L 09/13/19 04:48 Monocytes # (Manual) 0.4 10^3/uL (0.0-1.0) 09/13/19 04:48 Eosinophils # (Manual) 0.0 10^3/uL (0-0.7) 09/13/19 04:48 Basophils # (Manual) 0.0 10^3/uL (0-0.1) 09/13/19 04:48 Differential Comment MANUAL DIFFERENTIAL 09/13/19 04:48 Platelet Estimate NORMAL (130-450,000) (NORMAL) 09/13/19 04:48 RBC Morph Micro Appear NORMAL APPEARANCE (NORMAL) 09/13/19 04:48 ESR 19 mm/Hr (0-30) 09/12/19 21:02 Sodium 142 mmol/L (135-145) 09/13/19 04:48 Potassium 4.5 mmol/L (3.5-5.0) 09/13/19 04:48 Chloride 107 mmol/L (101-111) 09/13/19 04:48 Carbon Dioxide 23 mmol/L (21-32) 09/13/19 04:48 Anion Gap 12.0 (6-13) 09/13/19 04:48 BUN 18 mg/dL (6-20) 09/13/19 04:48 Creatinine 0.5 mg/dL (0.4-1.0) 09/13/19 04:48 Estimated GFR (MDRD) 120 (>89) 09/13/19 04:48 Glucose 116 mg/dL (70-100) H 09/13/19 04:48 Lactic Acid 1.7 mmol/L (0.5-2.2) 09/12/19 21:02 Calcium 9.0 mg/dL (8.5-10.3) 09/13/19 04:48 Phosphorus 2.4 mg/dL (2.5-4.6) L 09/13/19 04:48 Magnesium 2.1 mg/dL (1.7-2.8) 09/13/19 04:48 Total Bilirubin 0.9 mg/dL (0.2-1.0) 09/12/19 21:02 AST 18 IU/L (10-42) 09/12/19 21:02 ALT 17 IU/L (10-60) 09/12/19 21:02 Alkaline Phosphatase 116 IU/L (42-121) 09/12/19 21:02 Total Creatine Kinase 16 IU/L (22-269) L 09/12/19 21:02 CK-MB (CK-2) 3.0 ng/mL (0.6-6.3) 09/12/19 21:02 Troponin I High Sens 31.6 ng/L (2.3-14.8) H* 09/13/19 04:48 C-Reactive Protein 2.9 mg/dL (0-1.0) H 09/12/19 21:02 B-Natriuretic Peptide 153 pg/mL (5-100) H 09/12/19 21:02 Total Protein 6.5 g/dL (6.7-8.2) L 09/12/19 21:02 Albumin 3.0 g/dL (3.2-5.5) L 09/12/19 21:02 Globulin 3.5 g/dL (2.1-4.2) 09/12/19 21:02 Albumin/Globulin Ratio 0.9 (1.0-2.2) L 09/12/19 21:02 Lipase 43 U/L (22-51) 09/12/19 21:02 TSH 2.78 uIU/mL (0.34-5.60) 09/12/19 21:02 Urine Color YELLOW 09/12/19 22:15 Urine Clarity CLEAR (CLEAR) 09/12/19 22:15 Urine pH 6.5 PH (5.0-7.5) 09/12/19 22:15 Ur Specific [place] 1.020 (1.002-1.030) 09/12/19 22:15 Urine Protein TRACE mg/dL (NEGATIVE) 09/12/19 22:15 Urine Glucose (UA) NEGATIVE mg/dL (NEGATIVE) 09/12/19 22:15 Urine Ketones 15 mg/dL (NEGATIVE) H 09/12/19 22:15 Urine Occult Blood NEGATIVE (NEGATIVE) 09/12/19 22:15 Urine Nitrite NEGATIVE (NEGATIVE) 09/12/19 22:15 Urine Bilirubin NEGATIVE (NEGATIVE) 09/12/19 22:15 Urine Urobilinogen 0.2 (NORMAL) E.U./dL (NORMAL) 09/12/19 22:15 Ur Leukocyte Esterase NEGATIVE (NEGATIVE) 09/12/19 22:15 Ur Microscopic Review NOT INDICATED 09/12/19 22:15 Urine Culture Comments NOT INDICATED 09/12/19 22:15 - Procedures Procedures: Procedures REPLACEMENT OF LEFT LENS WITH SYNTH SUB, PERC APPROACH (02/02/19) REPLACEMENT OF RIGHT LENS WITH SYNTH SUB, PERC APPROACH (12/01/18) Sepsis Event Note (H) - Evaluation Current Stage of Sepsis: Ruled out ABX Reporting Has patient been on IV antibiotics over the past 48 hours?: No Current Medications - Current Medications Current Medications: Active Medications Acetaminophen (Tylenol) 650 mg PO Q4HR PRN PRN Reason: Pain 1 to 4 Last Admin: 09/13/19 13:36 Dose: 650 mg Documented by: Albuterol () 2.5 mg INH RTQ4H PRN PRN Reason: Wheezing Alprazolam (Xanax) 0.5 mg PO TID PRN PRN Reason: Anxiety Baclofen (Lioresal) 10 mg PO BID [facility] Benzonatate (Tessalon) 100 mg PO TID PRN PRN Reason: Cough Calcium Carbonate/Glycine (Tums) 500 mg PO BID [facility] Cholecalciferol (Vitamin D3) 50 mcg PO DAILY [facility] Diltiazem HCl (Cardizem Cd) 360 mg PO DAILY [facility] Last Admin: 09/13/19 11:08 Dose: 360 mg Documented by: Enoxaparin Sodium (Lovenox) 40 mg SUBQ DAILY [facility] Last Admin: 09/13/19 08:07 Dose: 40 mg Documented by: Ketorolac Tromethamine (Toradol Inj (15mg)) 15 mg IVP Q6HR PRN PRN Reason: PAIN Stop: 09/18/19 14:21 Multivitamins/Minerals (Theragran M) 1 tab PO DAILYWM [facility] Ondansetron HCl (Zofran Inj) 4 mg IVP Q6HR PRN PRN Reason: Nausea / Vomiting Last Admin: 09/13/19 08:07 Dose: 4 mg Documented by: Prednisone (Deltasone) 10 mg PO DAILYWM [facility] Last Admin: 09/13/19 11:08 Dose: 10 mg Documented by: Sodium Chloride (Normal Saline Flush 0.9%) 10 ml IVP PRN PRN PRN Reason: NEEDED PER PROVIDER ORDERS Sodium Chloride (Normal Saline Flush 0.9%) 10 ml IVP 0100,0900,1700 MARYCHUY Last Admin: 09/13/19 08:07 Dose: 20 ml Documented by: Tramadol HCl (Ultram) 50 mg PO Q8HR PRN PRN Reason: PAIN Last Admin: 09/13/19 11:29 Dose: 50 mg Documented by: ALPRAZolam [Alprazolam] 0.5 mg PO TID PRN 09/13/19 Albuterol Sulfate [Albuterol Sulfate Hfa] 2 puffs INH QID PRN 09/13/19 Baclofen [Lioresal] 10 mg PO BID 09/13/19 Furosemide [Lasix] 20 mg PO DAILY 09/13/19 Losartan Potassium [Cozaar] 100 mg PO DAILY 09/13/19 Omeprazole 20 mg PO DAILY 09/13/19 Ondansetron Odt [Zofran Odt] 4 mg PO Q6H PRN 09/13/19 Potassium Chloride 10 meq PO DAILY 09/13/19 dilTIAZem HCl [Diltiazem 24Hr ER (LA)] 360 mg PO DAILY 09/13/19 predniSONE [Deltasone] 10 mg PO DAILY 09/13/19 traMADol [Ultram] 50 mg PO Q8HR PRN 09/13/19
[2019-09-13] MEDS: CHOLECALCIFEROL 25 MCG TABLET PO SCH (16:00)
[2019-09-13] MEDS: MULTIVITAMIN W/MINERALS TABLET PO SCH (16:00)
[2019-09-13] MEDS: SODIUM CHLORIDE FLUSH 0.9% 10 ML SYRINGE IVP PRN (17:00)
[2019-09-13] MEDS ORDERED: SODIUM CHLORIDE 0.9% 1,000 ML IV SCH (19:00)
[2019-09-13] MEDS: BACLOFEN 10 MG TABLET PO SCH (21:30)
[2019-09-13] MEDS: CALCIUM CARBONATE CHEW 500 MG TABLET PO SCH (21:30)
[2019-09-14] MEDS: SODIUM CHLORIDE FLUSH 0.9% 10 ML SYRINGE IVP SCH ×3 (00:37→17:04)
[2019-09-14 06:30] LABS: BASOPHILS % (AUTO) 0.3 %; HGB - HEMOGLOBIN 11.8 g/dL (12.0-16.0); LYMPHOCYTES % (AUTO) 9.6 %; MEAN CORPUSCULAR HEMOGLOBIN 34.5 pg (27.0-31.0); MEAN CORPUSCULAR HGB CONC 31.9 g/dL (32.0-36.0); MEAN CORPUSCULAR VOLUME 108.2 fL (81.0-99.0); MEAN PLATELET VOLUME 9.6 fL (7.9-10.8); MONOCYTES % (AUTO) 7.5 %; NEUTROPHILS % (AUTO) 77.4 %; PLT - PLATELET COUNT 169 10^3/uL (130-450); RED BLOOD COUNT 3.42 10^6/uL (4.20-5.40); RED CELL DISTRIBUTION WIDTH 18.7 % (12.0-15.0); WHITE BLOOD COUNT 11.7 x10^3/uL (4.8-10.8)
[2019-09-14] MEDS: ACETAMINOPHEN 325 MG TABLET PO PRN (06:31)
[2019-09-14 06:33] LABS: ABNORMAL LYMPHS % (MANUAL) 0 %; BAND NEUTROPHILS % (MANUAL) 0 %
[2019-09-14 06:44] LABS: CALCIUM 8.9 mg/dL (8.5-10.3); CREATININE 0.6 mg/dL (0.4-1.0); MAGNESIUM 2.1 mg/dL (1.7-2.8); PHOSPHORUS 2.8 mg/dL (2.5-4.6)
[2019-09-14 07:03] LABS: LYMPHOCYTES # (MANUAL) 1.6 10^3/uL (1.5-3.5); LYMPHOCYTES % (MANUAL) 14 %; METAMYELOCYTES % (MANUAL) 1 %; MONOCYTES # (MANUAL) 0.6 10^3/uL (0.0-1.0); MYELOCYTES % (MANUAL) 1 %; RBC MORPHOLOGY (MULTIPLE) 1+ ANISOCYTOSIS (NORMAL)
[2019-09-14 07:04] LABS: DIFFERENTIAL COMMENT MANUAL DIFFERENTIAL; PLATELET ESTIMATE, MANUAL NORMAL (130-450,000) (NORMAL); PLATELET MORPHOLOGY NORMAL APPEARANCE (NORMAL)
[2019-09-14] MEDS ORDERED: SODIUM CHLORIDE 0.9% 500 ML IV ONE (07:59)
[2019-09-14] MEDS: predniSONE 10 MG TABLET PO SCH (08:04)
[2019-09-14] MEDS: MULTIVITAMIN W/MINERALS TABLET PO SCH (08:04)
[2019-09-14] MEDS: CHOLECALCIFEROL 25 MCG TABLET PO SCH (08:44)
[2019-09-14] MEDS: BACLOFEN 10 MG TABLET PO SCH ×2 (08:44→20:41)
[2019-09-14] MEDS: polyethylene glycoL 3350 17 GM PACKET PO SCH (08:45)
[2019-09-14] MEDS: CALCIUM CARBONATE CHEW 500 MG TABLET PO SCH ×2 (08:45→20:41)
[2019-09-14] MEDS: ENOXAPARIN 40 MG/0.4 ML SYRINGE SUBQ SCH (08:45)
[2019-09-14] MEDS: diltiaZEM CD 180 MG CAPSULE PO SCH (08:46)
[2019-09-14] MEDS: traMADol 50 MG TABLET PO PRN ×2 (08:52→20:41)
[2019-09-14] MEDS: SODIUM CHLORIDE 0.9% 1,000 ML IV SCH ×3 (08:53→18:28)
[2019-09-14] MEDS: KETOROLAC 15 MG/ML VIAL IVP PRN (10:26)
[2019-09-14] MEDS: ALBUTEROL NEB 2.5 MG/3 ML INH PRN (10:32)
--- NOTE | 2019-09-14 14:11 | PROVIDER PROGRESS NOTE ---
Assessment/Plan - Problem List (1) Hypotension Assessment/Plan: 09/13,pt has blood pressure at 80/52 in the morning, Patient report she felt dizzy. She has had 3 blood pressure meds in the home medication list. Will only resume Cardizem from her home medication list. Nurse already hold the Cardizem for patient. pt has no idea why she was prescribed Cardizem. We will continue quality assurance monitor body patient. Give patient 500 normal saline intravenous bolus, Continue intravenous normal saline. Order orthostatic hypotension check for patient. We will adjust patient home blood pressure medicine, It is likely patient over medicated by blood pressure medicine. (2) Dyspnea 09/13, patient has stable oxygen saturation on 3 L of oxygen by nasal cannula. Patient has history of pulmonary fibrosis, continue resume home steroid.Continue supplement of oxygen for patient, advised the patient follow-up with her engineer rf deployment closely. 09/12, Patient report she was diagnosis of pulmonary Fibrosis three years ago. She gradually become more difficulty breathing. Patient report she take 10 mg steroid daily. 39 patient still have 100% of sats with 3 liter of oxygen, duyen mary report she takes 3 liter of oxygen at home.CXR reveals stable. Pt did receive Solu-Medrol 125 mg IV in the emergency department, agree Patient does not show any acute exacerbation at this time, we will hod on continuing high- dose steroids and Will resume home PO low dosage of steroid. Continue breathing treatment as needed (3) Elevated troponin Conclusion/Plan: 09/13,Stable,chronic slightly elevated troponin 09/12,Patient's ECHO was unremarkable, Has a slightly elevated troponin but is stable, Patient has chronic slightly elevated troponin, Unchanged EKG. Continue telemetry and vital signs monitor patient (4) Lower extremity weakness Conclusion/Plan: 09/13, improved. patient cooperated to work with PT and OT. patient walked 45 feet with PT. Physical therapist and occupational therapist recommended when patient go home with home health physical therapist and occupational therapist. 09/12,Her edema On bilaterally lower extremity is relatively unremarkable, neurologically exam are intact, good pulsation. Echo is unremarkable. Spinal x- ray will review osteopenia and the possible osteoporotic compression fracture. Patient is a prescript of calcium carbonate, vitamin D3, pain control. (5) Chronic respiratory failure with hypoxia Conclusion/Plan: 625, stable patient has 100% of sats on 3 L of oxygen 09/12,stable, This is secondary to her pulmonary fibrosis. She is on her baseline 3 L of oxygen. advise pt followup with her engineer rf deployment (6) Pulmonary fibrosis Conclusion/Plan: 09/12,Since the patient was diagnosis with pulmonary fibrosis, she reported she graduated become difficulty breathing, she chronically take steroid in the home. CXR reveals stable. it is likely the cause of her dyspnea which appears to be more chronic rather than acute. She is on 3 L of oxygen at baseline. Plan as mentioned above for dyspnea. Continue outpatient follow-up with her engineer rf deployment at the [facility], Dr. Engel. (7) Leukocytosis Conclusion/Plan: 09/13 improved WBC is 11,000 today 09/12,Her white count is elevated at 13,000 but this is improved compared to prior lab readings. This may be due to her chronic steroid use. pt has No obvious source of infection at this time so we will hold off on antibiotics. We will check a CRP and ESR. Recheck CBC in the morning. Check blood cultures. (8) Hypokalemia Conclusion/Plan: 625, resolved Replace orally. (9) Hypertension Conclusion/Plan: 625, patient has hypotension today, we will hold his home medication and also will do orthostatic hypotension check, will we will adjust patient home blood pressure medicine. Stable. Continue her home losartan. (10)osteoporosis 09/13, patient X-ray will show osteoporosis and potential osteoporotic compression fracture likely chronic. Patient has history of group home steroid usage for her Pulmonary fibrosis. we will give pt calcium and Vitamin D3. (11)malnutrition patient lost her weight significantly recently. consulted with diamond setter apprentice, will follow up with the recommendations. Patient has history of pulmonary fibrosis. - Current Meds Current Meds: Current Medications Generic Name Dose Route Start Last Admin Trade Name Freq PRN Reason Stop Dose Admin Acetaminophen 650 mg 09/12/19 23:28 09/14/19 06:31 Tylenol PO 650 mg Q4HR PRN Administration Pain 1 to 4 Albuterol 2.5 mg 09/13/19 07:54 09/14/19 10:32 INH 2.5 mg RTQ4H PRN Administration Wheezing Alprazolam 0.5 mg 09/13/19 10:08 09/14/19 08:52 Xanax PO 0.5 mg TID PRN Administration Anxiety Baclofen 10 mg 09/13/19 21:00 09/14/19 08:44 Lioresal PO 10 mg BID MARYCHUY Administration Calcium Carbonate/Glycine 500 mg 09/13/19 21:00 09/14/19 08:45 Tums PO 500 mg BID MARYCHUY Administration Cholecalciferol 50 mcg 09/13/19 16:00 09/14/19 08:44 Vitamin D3 PO 50 mcg DAILY MARYCHUY Administration Diltiazem HCl 360 mg 09/13/19 11:00 09/14/19 08:46 Cardizem Cd PO Not Given DAILY MARYCHUY Enoxaparin Sodium 40 mg 09/13/19 09:00 09/14/19 08:45 Lovenox SUBQ 40 mg DAILY MARYCHUY Administration Sodium Chloride 1,000 mls @ 83.3 mls/hr 09/14/19 08:00 09/14/19 08:53 Normal Saline 0.9% IV 09/15/19 08:00 83.3 mls/hr .Q12H1M MARYCHUY Administration Ketorolac Tromethamine 15 mg 09/13/19 14:22 09/14/19 10:26 Toradol Inj (15mg) IVP 09/18/19 14:21 15 mg Q6HR PRN Administration PAIN Multivitamins/Minerals 1 tab 09/13/19 16:00 09/14/19 08:04 Theragran M PO 1 tab DAILYWM MARYCHUY Administration Ondansetron HCl 4 mg 09/12/19 23:28 09/13/19 17:00 Zofran Inj IVP 4 mg Q6HR PRN Administration Nausea / Vomiting Polyethylene Glycol 17 gm 09/14/19 09:00 09/14/19 08:45 Miralax PO 17 gm DAILY MARYCHUY Administration Prednisone 10 mg 09/13/19 12:00 09/14/19 08:04 Deltasone PO 10 mg DAILYWM MARYCHUY Administration Sodium Chloride 10 ml 09/12/19 23:28 09/13/19 17:00 Normal Saline Flush 0.9% IVP 10 ml PRN PRN Administration NEEDED PER PROVIDER ORDERS Sodium Chloride 10 ml 09/13/19 01:00 09/14/19 08:46 Normal Saline Flush 0.9% IVP Not Given 0100,0900,1700 MARYCHUY Tramadol HCl 50 mg 09/13/19 10:11 06/25/20 08:52 Ultram PO 50 mg Q8HR PRN Administration PAIN - Lab Result Fish Bone Diagrams: 09/14/19 06:10 09/14/19 06:10 - Additional Planning My Orders: My Active Orders 09/13/19 14:22 Ketorolac Inj (15Mg) [Toradol Inj (15Mg)] 15 mg IVP Q6HR PRN 09/13/19 16:00 Cholecalciferol [Vitamin D3] 50 mcg PO DAILY Multivitamin W/Minerals [Theragran M] 1 tab PO DAILYWM 09/13/19 21:00 Baclofen [Lioresal] 10 mg PO BID Calcium Carbonate [Tums] 500 mg PO BID 09/14/19 Home Health Referral [CONS] Routine 09/14/19 08:00 Sodium Chloride 0.9% [Normal Saline 0.9%] 1,000 ml IV 83.3 mls/hr 09/14/19 09:00 polyethylene glycoL 3350 [Miralax] 17 gm PO DAILY 09/14/19 13:50 Telemetry- [RC] Q4HR Subjective - Subjective Patient Reports: Feeling Better Objective Vital Signs: Vital Signs - 24 hr 09/13/19 09/13/19 09/13/19 15:55 20:20 20:43 Temperature 36.5 C 37 C Heart Rate 72 Heart Rate [ Activity] Heart Rate [ 76 72 Brachial] Heart Rate [ Sitting] Heart Rate [ Standing] Heart Rate [ Supine] Respiratory 17 18 18 Rate Blood Pressure [Activity] Blood Pressure 112/53 L 106/82 H [Left Brachial artery] Blood Pressure [Right Brachial artery] Blood Pressure [Sitting] Blood Pressure [Standing] Blood Pressure [Supine] O2 Saturation 98 98 09/13/19 09/14/19 09/14/19 23:50 05:10 07:47 Temperature 36.5 C 36.6 C 36.4 C L Heart Rate Heart Rate [ Activity] Heart Rate [ 76 70 64 Brachial] Heart Rate [ Sitting] Heart Rate [ Standing] Heart Rate [ Supine] Respiratory 16 16 17 Rate Blood Pressure [Activity] Blood Pressure 136/77 H 80/52 L [Left Brachial artery] Blood Pressure 115/69 [Right Brachial artery] Blood Pressure [Sitting] Blood Pressure [Standing] Blood Pressure [Supine] O2 Saturation 100 100 100 09/14/19 09/14/19 09/14/19 08:05 10:32 10:55 Temperature Heart Rate 63 Heart Rate [ 89 Activity] Heart Rate [ Brachial] Heart Rate [ 84 Sitting] Heart Rate [ 59 L Standing] Heart Rate [ 70 Supine] Respiratory 16 Rate Blood Pressure 128/67 [Activity] Blood Pressure 100/47 L [Left Brachial artery] Blood Pressure 111/71 [Right Brachial artery] Blood Pressure 128/88 H [Sitting] Blood Pressure 118/65 [Standing] Blood Pressure 114/93 H [Supine] O2 Saturation 09/14/19 09/14/19 11:00 12:27 Temperature Heart Rate Heart Rate [ 89 89 Activity] Heart Rate [ Brachial] Heart Rate [ 84 84 Sitting] Heart Rate [ 59 L 59 L Standing] Heart Rate [ 70 70 Supine] Respiratory Rate Blood Pressure 128/67 128/67 [Activity] Blood Pressure [Left Brachial artery] Blood Pressure [Right Brachial artery] Blood Pressure 128/88 H 128/88 H [Sitting] Blood Pressure 118/65 118/65 [Standing] Blood Pressure 114/93 H 114/93 H [Supine] O2 Saturation Oxygen O2 Source Nasal cannula Oxygen Flow Rate 3 I&O (Last 24 Hrs): Intake and Output Totals x24h 09/12/19 09/13/19 09/14/19 23:59 23:59 23:59 Intake Total 150 1700 Output Total 200 Balance -50 1700 General: Alert, Oriented x3, No acute distress HEENT: Atraumatic Neck: Supple Lymphatic: no adenopathy Neuro: Alert, Non Focal, Oriented Times 3 Cardiovascular: Regular rate, Normal S1, Normal S2 Respiratory: Chest non-tender Abdomen: Normal bowel sounds, Soft, No tenderness Extremities: Normal pulses - Results Results: Laboratory Results WBC 11.7 x10^3/uL (4.8-10.8) H 09/14/19 06:10 RBC 3.42 10^6/uL (4.20-5.40) L 09/14/19 06:10 Hgb 11.8 g/dL (12.0-16.0) L 09/14/19 06:10 Hct 37.0 % (37.0-47.0) 09/14/19 06:10 MCV 108.2 fL (81.0-99.0) H 09/14/19 06:10 MCH 34.5 pg (27.0-31.0) H 09/14/19 06:10 MCHC 31.9 g/dL (32.0-36.0) L 09/14/19 06:10 RDW 18.7 % (12.0-15.0) H 09/14/19 06:10 Plt Count 169 10^3/uL (130-450) 09/14/19 06:10 MPV 9.6 fL (7.9-10.8) 09/14/19 06:10 Neut # (Auto) Not Reportable 09/14/19 06:10 Lymph # (Auto) Not Reportable 09/14/19 06:10 [place] # (Auto) Not Reportable 09/14/19 06:10 Eos # (Auto) Not Reportable 09/14/19 06:10 Baso # (Auto) Not Reportable 09/14/19 06:10 Absolute Nucleated RBC Not Reportable 09/14/19 06:10 Total Counted 100 09/14/19 06:10 Band Neuts % (Manual) 0 % (0-10) 09/14/19 06:10 Abnorm Lymph % (Manual) 0 % 09/14/19 06:10 Metamyelocytes % 1 % (-0) H 09/14/19 06:10 Myelocytes % 1 % (-0) H 09/14/19 06:10 Nucleated RBC % Not Reportable 09/14/19 06:10 Neutrophils # (Manual) 9.2 10^3/uL (1.5-6.6) H 09/14/19 06:10 Lymphocytes # (Manual) 1.6 10^3/uL (1.5-3.5) 09/14/19 06:10 Monocytes # (Manual) 0.6 10^3/uL (0.0-1.0) 09/14/19 06:10 Eosinophils # (Manual) 0.0 10^3/uL (0-0.7) 09/14/19 06:10 Basophils # (Manual) 0.0 10^3/uL (0-0.1) 09/14/19 06:10 Differential Comment MANUAL DIFFERENTIAL 09/14/19 06:10 WBC Morphology NORMAL APPEARANCE (NORMAL) 09/14/19 06:10 Platelet Estimate NORMAL (130-450,000) (NORMAL) 09/14/19 06:10 Platelet Morphology NORMAL APPEARANCE (NORMAL) 09/14/19 06:10 RBC Morph Micro Appear 1+ ANISOCYTOSIS (NORMAL) 09/14/19 06:10 ESR 19 mm/Hr (0-30) 09/12/19 21:02 Sodium 142 mmol/L (135-145) 09/14/19 06:10 Potassium 4.2 mmol/L (3.5-5.0) 09/14/19 06:10 Chloride 109 mmol/L (101-111) 09/14/19 06:10 Carbon Dioxide 26 mmol/L (21-32) 09/14/19 06:10 Anion Gap 7.0 (6-13) 09/14/19 06:10 BUN 18 mg/dL (6-20) 09/14/19 06:10 Creatinine 0.6 mg/dL (0.4-1.0) 09/14/19 06:10 Estimated GFR (MDRD) 97 (>89) 09/14/19 06:10 Glucose 78 mg/dL (70-100) 09/14/19 06:10 Lactic Acid 1.7 mmol/L (0.5-2.2) 09/12/19 21:02 Calcium 8.9 mg/dL (8.5-10.3) 09/14/19 06:10 Phosphorus 2.8 mg/dL (2.5-4.6) 09/14/19 06:10 Magnesium 2.1 mg/dL (1.7-2.8) 09/14/19 06:10 Total Bilirubin 0.9 mg/dL (0.2-1.0) 09/12/19 21:02 AST 18 IU/L (10-42) 09/12/19 21:02 ALT 17 IU/L (10-60) 09/12/19 21:02 Alkaline Phosphatase 116 IU/L (42-121) 09/12/19 21:02 Total Creatine Kinase 16 IU/L (22-269) L 09/12/19 21:02 CK-MB (CK-2) 3.0 ng/mL (0.6-6.3) 09/12/19 21:02 Troponin I High Sens 31.6 ng/L (2.3-14.8) H* 09/13/19 04:48 C-Reactive Protein 2.9 mg/dL (0-1.0) H 09/12/19 21:02 B-Natriuretic Peptide 153 pg/mL (5-100) H 09/12/19 21:02 Total Protein 6.5 g/dL (6.7-8.2) L 09/12/19 21:02 Albumin 3.0 g/dL (3.2-5.5) L 09/12/19 21:02 Globulin 3.5 g/dL (2.1-4.2) 09/12/19 21:02 Albumin/Globulin Ratio 0.9 (1.0-2.2) L 09/12/19 21:02 Lipase 43 U/L (22-51) 09/12/19 21:02 TSH 2.78 uIU/mL (0.34-5.60) 09/12/19 21:02 Urine Color YELLOW 09/12/19 22:15 Urine Clarity CLEAR (CLEAR) 09/12/19 22:15 Urine pH 6.5 PH (5.0-7.5) 09/12/19 22:15 Ur Specific [place] 1.020 (1.002-1.030) 09/12/19 22:15 Urine Protein TRACE mg/dL (NEGATIVE) 09/12/19 22:15 Urine Glucose (UA) NEGATIVE mg/dL (NEGATIVE) 09/12/19 22:15 Urine Ketones 15 mg/dL (NEGATIVE) H 09/12/19 22:15 Urine Occult Blood NEGATIVE (NEGATIVE) 09/12/19 22:15 Urine Nitrite NEGATIVE (NEGATIVE) 09/12/19 22:15 Urine Bilirubin NEGATIVE (NEGATIVE) 09/12/19 22:15 Urine Urobilinogen 0.2 (NORMAL) E.U./dL (NORMAL) 09/12/19 22:15 Ur Leukocyte Esterase NEGATIVE (NEGATIVE) 09/12/19 22:15 Ur Microscopic Review NOT INDICATED 09/12/19 22:15 Urine Culture Comments NOT INDICATED 09/12/19 22:15 Coronavirus (PCR) NEGATIVE 09/13/19 08:15 - Procedures Procedures: Procedures REPLACEMENT OF LEFT LENS WITH SYNTH SUB, PERC APPROACH (02/02/19) REPLACEMENT OF RIGHT LENS WITH SYNTH SUB, PERC APPROACH (12/01/18) Sepsis Event Note (H) - Evaluation Current Stage of Sepsis: Ruled out ABX Reporting Has patient been on IV antibiotics over the past 48 hours?: No Current Medications - Current Medications Current Medications: Active Medications Acetaminophen (Tylenol) 650 mg PO Q4HR PRN PRN Reason: Pain 1 to 4 Last Admin: 09/14/19 06:31 Dose: 650 mg Documented by: Albuterol () 2.5 mg INH RTQ4H PRN PRN Reason: Wheezing Last Admin: 09/14/19 10:32 Dose: 2.5 mg Documented by: Alprazolam (Xanax) 0.5 mg PO TID PRN PRN Reason: Anxiety Last Admin: 09/14/19 08:52 Dose: 0.5 mg Documented by: Baclofen (Lioresal) 10 mg PO BID [facility] Last Admin: 09/14/19 08:44 Dose: 10 mg Documented by: Benzonatate (Tessalon) 100 mg PO TID PRN PRN Reason: Cough Calcium Carbonate/Glycine (Tums) 500 mg PO BID [facility] Last Admin: 09/14/19 08:45 Dose: 500 mg Documented by: Cholecalciferol (Vitamin D3) 50 mcg PO DAILY [facility] Last Admin: 09/14/19 08:44 Dose: 50 mcg Documented by: Diltiazem HCl (Cardizem Cd) 360 mg PO DAILY [facility] Last Admin: 09/14/19 08:46 Dose: Not Given Documented by: Enoxaparin Sodium (Lovenox) 40 mg SUBQ DAILY [facility] Last Admin: 09/14/19 08:45 Dose: 40 mg Documented by: Sodium Chloride (Normal Saline 0.9%) 1,000 mls @ 83.3 mls/hr IV .Q12H1M [facility] Stop: 09/15/19 08:00 Last Admin: 09/14/19 08:53 Dose: 83.3 mls/hr Documented by: Ketorolac Tromethamine (Toradol Inj (15mg)) 15 mg IVP Q6HR PRN PRN Reason: PAIN Stop: 09/18/19 14:21 Last Admin: 09/14/19 10:26 Dose: 15 mg Documented by: Multivitamins/Minerals (Theragran M) 1 tab PO DAILYWM [facility] Last Admin: 09/14/19 08:04 Dose: 1 tab Documented by: Ondansetron HCl (Zofran Inj) 4 mg IVP Q6HR PRN PRN Reason: Nausea / Vomiting Last Admin: 09/13/19 17:00 Dose: 4 mg Documented by: Polyethylene Glycol (Miralax) 17 gm PO DAILY [facility] Last Admin: 09/14/19 08:45 Dose: 17 gm Documented by: Prednisone (Deltasone) 10 mg PO DAILYWM [facility] Last Admin: 09/14/19 08:04 Dose: 10 mg Documented by: Sodium Chloride (Normal Saline Flush 0.9%) 10 ml IVP PRN PRN PRN Reason: NEEDED PER PROVIDER ORDERS Last Admin: 09/13/19 17:00 Dose: 10 ml Documented by: Sodium Chloride (Normal Saline Flush 0.9%) 10 ml IVP 0100,0900,1700 [facility] Last Admin: 09/14/19 08:46 Dose: Not Given Documented by: Tramadol HCl (Ultram) 50 mg PO Q8HR PRN PRN Reason: PAIN Last Admin: 09/14/19 08:52 Dose: 50 mg Documented by: ALPRAZolam [Alprazolam] 0.5 mg PO TID PRN 09/13/19 Albuterol Sulfate [Albuterol Sulfate Hfa] 2 puffs INH QID PRN 09/13/19 Baclofen [Lioresal] 10 mg PO BID 09/13/19 Furosemide [Lasix] 20 mg PO DAILY 09/13/19 Losartan Potassium [Cozaar] 100 mg PO DAILY 09/13/19 Omeprazole 20 mg PO DAILY 09/13/19 Ondansetron Odt [Zofran Odt] 4 mg PO Q6H PRN 09/13/19 Potassium Chloride 10 meq PO DAILY 09/13/19 dilTIAZem HCl [Diltiazem 24Hr ER ([place])] 360 mg PO DAILY 09/13/19 predniSONE [Deltasone] 10 mg PO DAILY 09/13/19 traMADol [Ultram] 50 mg PO Q8HR PRN 09/13/19
[2019-09-15] MEDS: SODIUM CHLORIDE FLUSH 0.9% 10 ML SYRINGE IVP SCH ×4 (03:17→23:42)
[2019-09-15] MEDS: traMADol 50 MG TABLET PO PRN (05:22)
[2019-09-15] MEDS: SODIUM CHLORIDE 0.9% 1,000 ML IV SCH (05:29)
[2019-09-15 05:34] LABS: BASOPHILS % (AUTO) 0.4 %; EOSINOPHILS % (AUTO) 0.1 %; HGB - HEMOGLOBIN 11.9 g/dL (12.0-16.0); LYMPHOCYTES % (AUTO) 9.4 %; MEAN CORPUSCULAR HGB CONC 30.7 g/dL (32.0-36.0); MEAN CORPUSCULAR VOLUME 110.6 fL (81.0-99.0); MONOCYTES % (AUTO) 4.1 %; NEUTROPHILS % (AUTO) 82.2 %; PLT - PLATELET COUNT 152 10^3/uL (130-450); RED CELL DISTRIBUTION WIDTH 18.9 % (12.0-15.0); WHITE BLOOD COUNT 13.5 x10^3/uL (4.8-10.8)
[2019-09-15 05:37] LABS: CALCIUM 8.4 mg/dL (8.5-10.3); CREATININE 0.4 mg/dL (0.4-1.0); MAGNESIUM 1.8 mg/dL (1.7-2.8); PHOSPHORUS 2.2 mg/dL (2.5-4.6)
[2019-09-15 06:01] LABS: ABNORMAL LYMPHS % (MANUAL) 0 %
[2019-09-15 06:07] LABS: BAND NEUTROPHILS % (MANUAL) 2 %; LYMPHOCYTES # (MANUAL) 1.8 10^3/uL (1.5-3.5); LYMPHOCYTES % (MANUAL) 13 %; MONOCYTES # (MANUAL) 0.3 10^3/uL (0.0-1.0); MYELOCYTES % (MANUAL) 1 %
[2019-09-15 06:08] LABS: DIFFERENTIAL COMMENT MANUAL DIFFERENTIAL; PLATELET ESTIMATE, MANUAL NORMAL (130-450,000) (NORMAL); PLATELET MORPHOLOGY NORMAL APPEARANCE (NORMAL)
[2019-09-15] MEDS: MULTIVITAMIN W/MINERALS TABLET PO SCH (07:43)
[2019-09-15] MEDS: predniSONE 10 MG TABLET PO SCH (07:43)
[2019-09-15] MEDS: NEUTRA-PHOS 250 MG TABLET PO SCH ×3 (08:04→17:56)
[2019-09-15] MEDS ORDERED: LOSARTAN 50 MG TABLET PO SCH (09:00)
[2019-09-15] MEDS ORDERED: FUROSEMIDE 20 MG TABLET PO SCH (09:00)
[2019-09-15] MEDS: CHOLECALCIFEROL 25 MCG TABLET PO SCH (09:19)
[2019-09-15] MEDS: KETOROLAC 15 MG/ML VIAL IVP PRN (09:20)
[2019-09-15] MEDS: ENOXAPARIN 40 MG/0.4 ML SYRINGE SUBQ SCH (09:20)
[2019-09-15] MEDS: BACLOFEN 10 MG TABLET PO SCH ×2 (09:20→20:40)
[2019-09-15] MEDS: CALCIUM CARBONATE CHEW 500 MG TABLET PO SCH ×2 (09:20→20:39)
[2019-09-15] MEDS: polyethylene glycoL 3350 17 GM PACKET PO SCH (09:23)
--- NOTE | 2019-09-15 12:07 | PROVIDER PROGRESS NOTE ---
Assessment/Plan - Problem List (2) Profound fatigue Assessment/Plan: patient Present profound fatigue exhaustion when physical therapist tried to work with the patient. now we will hold physical and occupational therapy and we will hold pain medication Toradol. (2) Hypotension Assessment/Plan: 09/14, Resolved. after we hold her home blood pressure medicine and give the patient hydration. Patient was given one-time Cardizem then patient blood pressure dropped to 80. Patient's orthostatic Hypotension is likely negative. Discussed with patient primary care provider Dr. Vandana Robledo. she state pt had no cardiac hx and no SVT. she agree to hold her BP meds now and followup with her office on next week to continue monitor. 09/13,pt has blood pressure at 80/52 in the morning, Patient report she felt dizzy. She has had 3 blood pressure meds in the home medication list. Will only resume Cardizem from her home medication list. Nurse already hold the Cardizem for patient. pt has no idea why she was prescribed Cardizem. We will continue senior pastor patient. Give patient 500 normal saline intravenous bolus, Continue intravenous normal saline. Order orthostatic hypotension check for patient. We will adjust patient home blood pressure medicine, It is likely patient over medicated by blood pressure medicine. (3) Dyspnea 09/14, Stable, patient has 98% sats on 3 L of oxygen. Continue provide oxygen by nasal cannula. 09/13, patient has stable oxygen saturation on 3 L of oxygen by nasal cannula. Patient has history of pulmonary fibrosis, continue resume home steroid.Continue supplement of oxygen for patient, advised the patient follow-up with her storyboard artist closely. 09/12, Patient report she was diagnosis of pulmonary Fibrosis three years ago. She gradually become more difficulty breathing. Patient report she take 10 mg steroid daily. 39 patient still have 100% of sats with 3 liter of oxygen, patient report she takes 3 liter of oxygen at home.CXR reveals stable. Pt did receive Solu-Medrol 125 mg IV in the emergency department, agree Patient does not show any acute exacerbation at this time, we will hod on continuing high- dose steroids and Will resume home PO low dosage of steroid. Continue breathing treatment as needed (4) Elevated troponin Conclusion/Plan: 09/13,Stable,chronic slightly elevated troponin 09/12,Patient's ECHO was unremarkable, Has a slightly elevated troponin but is stable, Patient has chronic slightly elevated troponin, Unchanged EKG. Continue telemetry and vital signs monitor patient (5) Lower extremity weakness Conclusion/Plan: 09/14, Patient present profound fatigue and exhaustion, we will hold physical and occupational therapist on today 09/13, improved. patient cooperated to work with PT and OT. patient walked 45 feet with PT. Physical therapist and occupational therapist recommended when patient go home with home health physical therapist and occupational therapist. 09/12,Her edema On bilaterally lower extremity is relatively unremarkable, neurologically exam are intact, good pulsation. Echo is unremarkable. Spinal x- ray will review osteopenia and the possible osteoporotic compression fracture. Patient is a prescript of calcium carbonate, vitamin D3, pain control. (6) Chronic respiratory failure with hypoxia Conclusion/Plan: 625, stable patient has 100% of sats on 3 L of oxygen 09/12,stable, This is secondary to her pulmonary fibrosis. She is on her baseline 3 L of oxygen. advise pt followup with her storyboard artist (7) Pulmonary fibrosis Conclusion/Plan: 09/12,Since the patient was diagnosis with pulmonary fibrosis, she reported she graduated become difficulty breathing, she chronically take steroid in the home. CXR reveals stable. it is likely the cause of her dyspnea which appears to be more chronic rather than acute. She is on 3 L of oxygen at baseline. Plan as m entioned above for dyspnea. Continue outpatient follow-up with her storyboard artist at the [facility], Dr. Engel. (8) Leukocytosis Conclusion/Plan: 626, stable, Patient has slightly elevated WBC, it is likely caused by patient chronically taken steroid. 09/13 improved WBC is 11,000 today 09/12,Her white count is elevated at 13,000 but this is improved compared to prior lab readings. This may be due to her chronic steroid use. pt has No obvious source of infection at this time so we will hold off on antibiotics. We will check a CRP and ESR. Recheck CBC in the morning. Check blood cultures. (9) Hypokalemia Conclusion/Plan: 625, resolved Replace orally. (10) Hypertension Conclusion/Plan: 09/14, patient blood pressure is stable since patient was in hospital. discussed with patient primary care, she agreed hold the blood pressure medicine and see her in the office next week to continue monitoring pt. 625, patient has hypotension today, we will hold his home medication and also will do orthostatic hypotension check, will we will adjust patient home blood pressure medicine. Stable. Continue her home losartan. (11)osteoporosis 09/13, patient X-ray will show osteoporosis and potential osteoporotic compression fracture likely chronic. 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 we will give pt calcium and Vitamin D3. (12)malnutrition 09/14, Patient's appetite is still poor, patient was consulted by manager mass, We will follow-up with recommendations, encourage patient increases her appetite 09/13 patient lost her weight significantly recently. consulted with manager mass, will follow up with the recommendations. Patient has history of pulmonary fibrosis. - Current Meds Current Meds: Current Medications Generic Name Dose Route Start Last Admin Trade Name Freq PRN Reason Stop Dose Admin Acetaminophen 650 mg 09/12/19 23:28 09/14/19 06:31 Tylenol PO 650 mg Q4HR PRN Administration Pain 1 to 4 Albuterol 2.5 mg 09/13/19 07:54 09/14/19 10:32 INH 2.5 mg RTQ4H PRN Administration Wheezing Baclofen 10 mg 09/13/19 21:00 09/15/19 09:20 Lioresal PO 10 mg BID MARYCHUY Administration Calcium Carbonate/Glycine 500 mg 09/13/19 21:00 09/15/19 09:20 Tums PO 500 mg BID MARYCHUY Administration Cholecalciferol 50 mcg 09/13/19 16:00 09/15/19 09:19 Vitamin D3 PO 50 mcg DAILY MARYCHUY Administration Enoxaparin Sodium 40 mg 09/13/19 09:00 09/15/19 09:20 Lovenox SUBQ 40 mg DAILY MARYCHUY Administration Multivitamins/Minerals 1 tab 09/13/19 16:00 09/15/19 07:43 Theragran M PO 1 tab DAILYWM MARYCHUY Administration Ondansetron HCl 4 mg 09/12/19 23:28 09/13/19 17:00 Zofran Inj IVP 4 mg Q6HR PRN Administration Nausea / Vomiting Polyethylene Glycol 17 gm 09/14/19 09:00 09/15/19 09:23 Miralax PO 17 gm DAILY MARYCHUY Administration Prednisone 10 mg 09/13/19 12:00 09/15/19 07:43 Deltasone PO 10 mg DAILYWM MARYCHUY Administration Sodium Chloride 10 ml 09/12/19 23:28 09/13/19 17:00 Normal Saline Flush 0.9% IVP 10 ml PRN PRN Administration NEEDED PER PROVIDER ORDERS Sodium Chloride 10 ml 09/13/19 01:00 09/15/19 09:21 Normal Saline Flush 0.9% IVP 10 ml 0100,0900,1700 MARYCHUY Administration Sodium Phosphate 250 mg 09/15/19 08:00 09/15/19 11:53 K-Phos Neutral PO 250 mg TIDWM MARYCHUY Administration Tramadol HCl 50 mg 09/13/19 10:11 09/15/19 05:22 Ultram PO 50 mg Q8HR PRN Administration PAIN - Lab Result Fish Bone Diagrams: 09/15/19 04:20 09/15/19 04:20 - Additional Planning My Orders: My Active Orders 09/14/19 13:50 Telemetry- [RC] Q4HR 09/14/19 14:17 Orthostatic [Vital Signs - Orthostatic] [RC] DAILY 09/14/19 Dinner Regular Diet [DIET] 09/15/19 08:00 Neutra-Phos [K-Phos Neutral] 250 mg PO TIDWM Subjective - Subjective Patient Reports: Fatigue Objective Vital Signs: Vital Signs - 24 hr 09/14/19 09/14/19 09/14/19 12:27 16:43 18:04 Temperature 36.6 C 36.6 C Heart Rate 86 Heart Rate [ 89 Activity] Heart Rate [ 72 Brachial] Heart Rate [ Sitting (After 1 Minute)] Heart Rate [ 84 Sitting] Heart Rate [ 59 L Standing] Heart Rate [ 70 Supine] Respiratory 18 18 Rate Blood Pressure 128/67 [Activity] Blood Pressure 136/60 H [Left Brachial artery] Blood Pressure [Sitting (After 1 Minute)] Blood Pressure 128/88 H [Sitting] Blood Pressure 118/65 [Standing] Blood Pressure 114/93 H [Supine] O2 Saturation 100 98 09/14/19 09/14/19 09/15/19 20:18 20:25 04:45 Temperature 36.5 C 36.5 C Heart Rate 73 Heart Rate [ Activity] Heart Rate [ 73 88 Brachial] Heart Rate [ Sitting (After 1 Minute)] Heart Rate [ Sitting] Heart Rate [ Standing] Heart Rate [ Supine] Respiratory 16 16 16 Rate Blood Pressure [Activity] Blood Pressure 123/63 142/72 H [Left Brachial artery] Blood Pressure [Sitting (After 1 Minute)] Blood Pressure [Sitting] Blood Pressure [Standing] Blood Pressure [Supine] O2 Saturation 98 100 09/15/19 09/15/19 09/15/19 08:31 11:49 11:52 Temperature 36.4 C L 36.4 C L Heart Rate Heart Rate [ Activity] Heart Rate [ 84 88 Brachial] Heart Rate [ 93 Sitting (After 1 Minute)] Heart Rate [ Sitting] Heart Rate [ Standing] Heart Rate [ 88 Supine] Respiratory 20 20 Rate Blood Pressure [Activity] Blood Pressure 113/70 136/75 H [Left Brachial artery] Blood Pressure 138/87 H [Sitting (After 1 Minute)] Blood Pressure [Sitting] Blood Pressure [Standing] Blood Pressure 136/75 H [Supine] O2 Saturation 100 98 Oxygen O2 Source Nasal cannula Oxygen Flow Rate 3 I&O (Last 24 Hrs): Intake and Output Totals x24h 09/13/19 09/14/19 09/15/19 23:59 23:59 23:59 Intake Total 150 2594.126 1059.517 Output Total 200 250 200 Balance -50 2344.126 859.517 General: Alert, Oriented x3, No acute distress HEENT: Atraumatic Neck: Supple Lymphatic: no adenopathy Neuro: Alert, Non Focal, Oriented Times 3 Cardiovascular: Regular rate, Normal S1, Normal S2 Respiratory: Chest non-tender, No respiratory distress, Breath sounds nml Abdomen: Normal bowel sounds, Soft, No tenderness Extremities: Normal pulses - Results Results: Laboratory Results WBC 13.5 x10^3/uL (4.8-10.8) H 09/15/19 04:20 RBC 3.50 10^6/uL (4.20-5.40) L 09/15/19 04:20 Hgb 11.9 g/dL (12.0-16.0) L 09/15/19 04:20 Hct 38.7 % (37.0-47.0) 09/15/19 04:20 MCV 110.6 fL (81.0-99.0) H 09/15/19 04:20 MCH 34.0 pg (27.0-31.0) H 09/15/19 04:20 MCHC 30.7 g/dL (32.0-36.0) L 09/15/19 04:20 RDW 18.9 % (12.0-15.0) H 09/15/19 04:20 Plt Count 152 10^3/uL (130-450) 09/15/19 04:20 MPV 11.0 fL (7.9-10.8) H 09/15/19 04:20 Neut # (Auto) Not Reportable 09/15/19 04:20 Lymph # (Auto) Not Reportable 09/15/19 04:20 [place] # (Auto) Not Reportable 09/15/19 04:20 Eos # (Auto) Not Reportable 09/15/19 04:20 Baso # (Auto) Not Reportable 09/15/19 04:20 Absolute Nucleated RBC Not Reportable 09/15/19 04:20 Total Counted 100 09/15/19 04:20 Band Neuts % (Manual) 2 % (0-10) 09/15/19 04:20 Abnorm Lymph % (Manual) 0 % 09/15/19 04:20 Metamyelocytes % 1 % (-0) H 09/14/19 06:10 Myelocytes % 1 % (-0) H 09/15/19 04:20 Nucleated RBC % Not Reportable 09/15/19 04:20 Neutrophils # (Manual) 11.3 10^3/uL (1.5-6.6) H 09/15/19 04:20 Lymphocytes # (Manual) 1.8 10^3/uL (1.5-3.5) 09/15/19 04:20 Monocytes # (Manual) 0.3 10^3/uL (0.0-1.0) 09/15/19 04:20 Eosinophils # (Manual) 0.0 10^3/uL (0-0.7) 09/15/19 04:20 Basophils # (Manual) 0.0 10^3/uL (0-0.1) 09/15/19 04:20 Differential Comment MANUAL DIFFERENTIAL 09/15/19 04:20 WBC Morphology NORMAL APPEARANCE (NORMAL) 09/15/19 04:20 Platelet Estimate NORMAL (130-450,000) (NORMAL) 09/15/19 04:20 Platelet Morphology NORMAL APPEARANCE (NORMAL) 09/15/19 04:20 RBC Morph Micro Appear 1+ ANISOCYTOSIS (NORMAL) 2+ MACROCYTOSIS (NORMAL) 09/15/19 04:20 RBC Morph Micro Appear 1+ ANISOCYTOSIS (NORMAL) 2+ MACROCYTOSIS (NORMAL) 09/15/19 04:20 ESR 19 mm/Hr (0-30) 09/12/19 21:02 Sodium 140 mmol/L (135-145) 09/15/19 04:20 Potassium 3.8 mmol/L (3.5-5.0) 09/15/19 04:20 Chloride 111 mmol/L (101-111) 09/15/19 04:20 Carbon Dioxide 24 mmol/L (21-32) 09/15/19 04:20 Anion Gap 5.0 (6-13) L 09/15/19 04:20 BUN 14 mg/dL (6-20) 09/15/19 04:20 Creatinine 0.4 mg/dL (0.4-1.0) 09/15/19 04:20 Estimated GFR (MDRD) 156 (>89) 09/15/19 04:20 Glucose 63 mg/dL (70-100) L 09/15/19 04:20 Lactic Acid 1.7 mmol/L (0.5-2.2) 09/12/19 21:02 Calcium 8.4 mg/dL (8.5-10.3) L 09/15/19 04:20 Phosphorus 2.2 mg/dL (2.5-4.6) L 09/15/19 04:20 Magnesium 1.8 mg/dL (1.7-2.8) 09/15/19 04:20 Total Bilirubin 0.9 mg/dL (0.2-1.0) 09/12/19 21:02 AST 18 IU/L (10-42) 09/12/19 21:02 ALT 17 IU/L (10-60) 09/12/19 21:02 Alkaline Phosphatase 116 IU/L (42-121) 09/12/19 21:02 Total Creatine Kinase 16 IU/L (22-269) L 09/12/19 21:02 CK-MB (CK-2) 3.0 ng/mL (0.6-6.3) 09/12/19 21:02 Troponin I High Sens 31.6 ng/L (2.3-14.8) H* 09/13/19 04:48 C-Reactive Protein 2.9 mg/dL (0-1.0) H 09/12/19 21:02 B-Natriuretic Peptide 153 pg/mL (5-100) H 09/12/19 21:02 Total Protein 6.5 g/dL (6.7-8.2) L 09/12/19 21:02 Albumin 3.0 g/dL (3.2-5.5) L 09/12/19 21:02 Globulin 3.5 g/dL (2.1-4.2) 09/12/19 21:02 Albumin/Globulin Ratio 0.9 (1.0-2.2) L 09/12/19 21:02 Lipase 43 U/L (22-51) 09/12/19 21:02 TSH 2.78 uIU/mL (0.34-5.60) 09/12/19 21:02 Urine Color YELLOW 09/12/19 22:15 Urine Clarity CLEAR (CLEAR) 09/12/19 22:15 Urine pH 6.5 PH (5.0-7.5) 09/12/19 22:15 Ur Specific [place] 1.020 (1.002-1.030) 09/12/19 22:15 Urine Protein TRACE mg/dL (NEGATIVE) 09/12/19 22:15 Urine Glucose (UA) NEGATIVE mg/dL (NEGATIVE) 09/12/19 22:15 Urine Ketones 15 mg/dL (NEGATIVE) H 09/12/19 22:15 Urine Occult Blood NEGATIVE (NEGATIVE) 09/12/19 22:15 Urine Nitrite NEGATIVE (NEGATIVE) 09/12/19 22:15 Urine Bilirubin NEGATIVE (NEGATIVE) 09/12/19 22:15 Urine Urobilinogen 0.2 (NORMAL) E.U./dL (NORMAL) 09/12/19 22:15 Ur Leukocyte Esterase NEGATIVE (NEGATIVE) 09/12/19 22:15 Ur Microscopic Review NOT INDICATED 09/12/19 22:15 Urine Culture Comments NOT INDICATED 09/12/19 22:15 Coronavirus (PCR) NEGATIVE 09/13/19 08:15 - Procedures Procedures: Procedures REPLACEMENT OF LEFT LENS WITH SYNTH SUB, PERC APPROACH (02/02/19) REPLACEMENT OF RIGHT LENS WITH SYNTH SUB, PERC APPROACH (12/01/18) Sepsis Event Note (H) - Evaluation Current Stage of Sepsis: Ruled out ABX Reporting Has patient been on IV antibiotics over the past 48 hours?: No Current Medications - Current Medications Current Medications: Active Medications Acetaminophen (Tylenol) 650 mg PO Q4HR PRN PRN Reason: Pain 1 to 4 Last Admin: 09/14/19 06:31 Dose: 650 mg Documented by: Albuterol () 2.5 mg INH RTQ4H PRN PRN Reason: Wheezing Last Admin: 09/14/19 10:32 Dose: 2.5 mg Documented by: Baclofen (Lioresal) 10 mg PO BID [facility] Last Admin: 09/15/19 09:20 Dose: 10 mg Documented by: Benzonatate (Tessalon) 100 mg PO TID PRN PRN Reason: Cough Calcium Carbonate/Glycine (Tums) 500 mg PO BID [facility] Last Admin: 09/15/19 09:20 Dose: 500 mg Documented by: Cholecalciferol (Vitamin D3) 50 mcg PO DAILY [facility] Last Admin: 09/15/19 09:19 Dose: 50 mcg Documented by: Enoxaparin Sodium (Lovenox) 40 mg SUBQ DAILY [facility] Last Admin: 09/15/19 09:20 Dose: 40 mg Documented by: Multivitamins/Minerals (Theragran M) 1 tab PO DAILYWM [facility] Last Admin: 09/15/19 07:43 Dose: 1 tab Documented by: Ondansetron HCl (Zofran Inj) 4 mg IVP Q6HR PRN PRN Reason: Nausea / Vomiting Last Admin: 09/13/19 17:00 Dose: 4 mg Documented by: Polyethylene Glycol (Miralax) 17 gm PO DAILY [facility] Last Admin: 09/15/19 09:23 Dose: 17 gm Documented by: Prednisone (Deltasone) 10 mg PO DAILYWM [facility] Last Admin: 09/15/19 07:43 Dose: 10 mg Documented by: Sodium Chloride (Normal Saline Flush 0.9%) 10 ml IVP PRN PRN PRN Reason: NEEDED PER PROVIDER ORDERS Last Admin: 09/13/19 17:00 Dose: 10 ml Documented by: Sodium Chloride (Normal Saline Flush 0.9%) 10 ml IVP 0100,0900,1700 [facility] Last Admin: 09/15/19 09:21 Dose: 10 ml Documented by: Sodium Phosphate (K-Phos Neutral) 250 mg PO TIDWM [facility] Last Admin: 09/15/19 11:53 Dose: 250 mg Documented by: Tramadol HCl (Ultram) 50 mg PO Q8HR PRN PRN Reason: PAIN Last Admin: 09/15/19 05:22 Dose: 50 mg Documented by: ALPRAZolam [Alprazolam] 0.5 mg PO TID PRN 09/13/19 Albuterol Sulfate [Albuterol Sulfate Hfa] 2 puffs INH QID PRN 09/13/19 Baclofen [Lioresal] 10 mg PO BID 09/13/19 Furosemide [Lasix] 20 mg PO DAILY 09/13/19 Losartan Potassium [Cozaar] 100 mg PO DAILY 09/13/19 Omeprazole 20 mg PO DAILY 09/13/19 Ondansetron Odt [Zofran Odt] 4 mg PO Q6H PRN 09/13/19 Potassium Chloride 10 meq PO DAILY 09/13/19 dilTIAZem HCl [Diltiazem 24Hr ER ([place])] 360 mg PO DAILY 09/13/19 predniSONE [Deltasone] 10 mg PO DAILY 09/13/19 traMADol [Ultram] 50 mg PO Q8HR PRN 09/13/19
--- NOTE | 2019-09-15 14:57 | XRAY Report ---
PROCEDURE: Chest 1 View X-Ray INDICATIONS: cough, SOB TECHNIQUE: One view of the chest was acquired. COMPARISON: 09/12/2019 FINDINGS: Surgical changes and devices: None. Lungs and pleura: No pleural effusions or pneumothorax. Chronic and edematous changes are again note d in bilateral lung kelly. Right perihilar soft tissue opacity and retraction of the thorax is again seen and unchanged. Calcified pleural plaques along the right hemidiaphragm is also seen with decrea sed right lung volume. Mediastinum: Tortuous thoracic aorta is again seen. Heart size is normal. Bones and chest wall: No suspicious bony lesions. Overlying soft tissues appear unremarkable. IMPRESSION: No significant changes from previous study. Likely chronic process in right hemithorax. No definite f ocal infiltrate or pneumothorax. Reviewed by: Flaquito Boudreaux MD on 09/15/2019 2:55 PM PDT Approved by: Flaquito Boudreaux MD on 09/15/2019 2:55 PM PDT Station ID: [id number]
[2019-09-15] MEDS ORDERED: D5.45NS W/20 MEQ KCL 1,000 ML IV SCH (16:00)
[2019-09-15] MEDS: ONDANSETRON 4 MG/2 ML VIAL IVP PRN (20:39)
[2019-09-16] MEDS: ONDANSETRON 4 MG/2 ML VIAL IVP PRN ×2 (03:01→09:04)
[2019-09-16 05:29] LABS: BASOPHILS # (AUTO) 0.1 10^3/uL (0.0-0.1); BASOPHILS % (AUTO) 0.4 %; EOSINOPHILS % (AUTO) 0.2 %; HGB - HEMOGLOBIN 11.9 g/dL (12.0-16.0); LYMPHOCYTES # (AUTO) 1.5 10^3/uL (1.5-3.5); LYMPHOCYTES % (AUTO) 9.9 %; MEAN CORPUSCULAR HEMOGLOBIN 35.5 pg (27.0-31.0); MEAN CORPUSCULAR HGB CONC 32.6 g/dL (32.0-36.0); MEAN PLATELET VOLUME 10.1 fL (7.9-10.8); MONOCYTES # (AUTO) 0.6 10^3/uL (0.0-1.0); MONOCYTES % (AUTO) 3.8 %; NEUTROPHILS # (AUTO) 12.3 10^3/uL (1.5-6.6); NEUTROPHILS % (AUTO) 82.1 %; PLT - PLATELET COUNT 156 10^3/uL (130-450); RED BLOOD COUNT 3.35 10^6/uL (4.20-5.40); RED CELL DISTRIBUTION WIDTH 18.6 % (12.0-15.0)
[2019-09-16 05:41] LABS: CALCIUM 8.7 mg/dL (8.5-10.3); CREATININE 0.5 mg/dL (0.4-1.0); MAGNESIUM 1.7 mg/dL (1.7-2.8); PHOSPHORUS 1.9 mg/dL (2.5-4.6)
[2019-09-16] MEDS ORDERED: POTASSIUM CHLORIDE 20 MEQ TABLET PO ONE (07:18)
[2019-09-16] MEDS: ALBUTEROL NEB 2.5 MG/3 ML INH PRN (07:42)
[2019-09-16] MEDS: BACLOFEN 10 MG TABLET PO SCH (08:56)
[2019-09-16] MEDS: CHOLECALCIFEROL 25 MCG TABLET PO SCH (08:56)
[2019-09-16] MEDS: MULTIVITAMIN W/MINERALS TABLET PO SCH (08:57)
[2019-09-16] MEDS: predniSONE 10 MG TABLET PO SCH (08:57)
[2019-09-16] MEDS: CALCIUM CARBONATE CHEW 500 MG TABLET PO SCH ×2 (08:57→20:57)
[2019-09-16] MEDS: polyethylene glycoL 3350 17 GM PACKET PO SCH (09:01)
[2019-09-16] MEDS: NEUTRA-PHOS 250 MG TABLET PO SCH ×3 (09:02→16:59)
[2019-09-16] MEDS: ENOXAPARIN 40 MG/0.4 ML SYRINGE SUBQ SCH (09:04)
[2019-09-16] MEDS: SODIUM CHLORIDE FLUSH 0.9% 10 ML SYRINGE IVP SCH ×2 (09:04→17:01)
[2019-09-16] MEDS: SODIUM CHLORIDE FLUSH 0.9% 10 ML SYRINGE IVP PRN (09:04)
[2019-09-16] MEDS ORDERED: MIN OIL/DIMETHICON/COCONUT OIL 92 GM TUBE TOP PRN (09:53)
--- NOTE | 2019-09-16 10:40 | PROVIDER PROGRESS NOTE ---
Assessment/Plan - Problem List (1) Orthostatic hypotension Assessment/Plan: Despite having a history of hypertension, her BP meds have been decreased and orthostatic vital signs have been checked for the last 2 days. Today she is very orthostatic: supine systolic blood pressure of 139, drops to systolic of 97 with standing, and heart rate goes from 80s to 146 with standing. She was dizzy in all 3 positions She has signs of dehydration with dry mucosa and skin tenting. We will resume IV fluids. Hold any meds that cause a drop in blood pressure (tramadol). Will promote oral liquid intake. We will make her diet easier from a regular diet to a dysphagia pured diet which she likes: eats applesauce and drinks her Ensure. She is not ready for discharge, thus I will make her an Inpatient for further ma nagement of this symptomatic hemodynamic instability. I watched her move from supine to dangling to standing and she also probably will need SNF because of severe weakness. (2) Tachycardia Assessment/Plan: When the patient stood, her heart rate went up to 140s. This was related to deconditioning, dehydration and orthostasis. Will be made an inpatient. Continue telemetry. Adjust meds for high HR, after giving volume replacement. (3) Profound fatigue Assessment/Plan: Starting yesterday, patient c/o profound fatigue and exhaustion when physical therapist tried to work with the patient yesterday. This is likely related to her dehydration and orthostasis plus underlying condition and possibly narcotic use. Will hold physical and occupational therapy, start hydration and we will hold any sedating medications. (4) Dehydration Assessment/Plan: As above in #1, 2 and 3 (5) Severe protein-calorie malnutrition Assessment/Plan: She was seen by tuber machine operator to give her options regarding a diet. She mostly only drinks Ensure and takes applesauce here, is unable to orally hydrate adequately though. We will continue to offer a diet that interests her and supplements to increase protein and calories. (6) Chronic respiratory failure with hypoxia Assessment/Plan: With mobility from bed to standing and when she gets from bed to chair, she maintains oxygen saturations greater than 90% on her 3 L O2 nasal cannula, which is her chronic dose even at home. (7) Pulmonary fibrosis Assessment/Plan: Will adjust her nebs, stop albuterol which can cause tachycardia. She may also need adjustments of meds for better pulmonary toilet. Continue steroids, her daily WBCs are increasing likely from steroid use. She has a DNR in place. Palliative care consult for planning for Hospice would also be appropriate. (8) Hypokalemia Assessment/Plan: Will replace p.o. and IV. Follow BMP daily. (9) Hx of essential hypertension Assessment/Plan: Her blood pressure has been lower each day while here. She is not on any antihypertensives currently. She needs volume replacement, and may even need Midodrin started. (10) Livedo reticularis Assessment/Plan: Her volume depletion and orthostasis are likely giving her extremities hypoperfusion resulting in mottling of the skin of the lower extremities. Plan volume replacement as above. (11) Decubitus ulcer of lower back, unstageable Assessment/Plan: She has several large pads covering her skin. We will order wound consult and check lactic acid level and blood culture. (12) Scoliosis/kyphoscoliosis Assessment/Plan: She has severe scoliosis, this also decreases her thoracic volume and makes her short of breath. (13) Osteoporosis Assessment/Plan: Patient X-ray showed osteoporosis and potential osteoporotic compression fracture likely chronic. Patient has history of penitentiary steroid usage for her Pulmonary fibrosis. We started calcium and Vitamin D3. - Current Meds Current Meds: Current Medications Generic Name Dose Route Start Last Admin Trade Name Freq PRN Reason Stop Dose Admin Acetaminophen 650 mg 09/12/19 23:28 09/14/19 06:31 Tylenol PO 650 mg Q4HR PRN Administration Pain 1 to 4 Albuterol 2.5 mg 09/13/19 07:54 09/16/19 07:42 INH 2.5 mg RTQ4H PRN Administration Wheezing Baclofen 10 mg 09/13/19 21:00 09/16/19 08:56 Lioresal PO 10 mg BID MARYCHUY Administration Calcium Carbonate/Glycine 500 mg 09/13/19 21:00 09/16/19 08:57 Tums PO 500 mg BID MARYCHUY Administration Cholecalciferol 50 mcg 09/13/19 16:00 09/16/19 08:56 Vitamin D3 PO 50 mcg DAILY MARYCHUY Administration Enoxaparin Sodium 40 mg 09/13/19 09:00 09/16/19 09:04 Lovenox SUBQ 40 mg DAILY MARYCHUY Administration Multivitamins/Minerals 1 tab 09/13/19 16:00 09/16/19 08:57 Theragran M PO 1 tab DAILYWM MARYCHUY Administration Ondansetron HCl 4 mg 09/12/19 23:28 09/16/19 09:04 Zofran Inj IVP 4 mg Q6HR PRN Administration Nausea / Vomiting Polyethylene Glycol 17 gm 09/14/19 09:00 09/16/19 09:01 Miralax PO 17 gm DAILY MARYCHUY Administration Prednisone 10 mg 09/13/19 12:00 09/16/19 08:57 Deltasone PO 10 mg DAILYWM MARYCHUY Administration Sodium Chloride 10 ml 09/12/19 23:28 09/16/19 09:04 Normal Saline Flush 0.9% IVP 10 ml PRN PRN Administration NEEDED PER PROVIDER ORDERS Sodium Chloride 10 ml 09/13/19 01:00 09/16/19 09:04 Normal Saline Flush 0.9% IVP 10 ml 0100,0900,1700 MARYCHUY Administration Sodium Phosphate 250 mg 09/15/19 08:00 09/16/19 09:02 K-Phos Neutral PO 250 mg TIDWM MARYCHUY Administration Tramadol HCl 50 mg 09/13/19 10:11 09/15/19 05:22 Ultram PO 50 mg Q8HR PRN Administration PAIN - Lab Result Fish Bone Diagrams: 09/16/19 05:20 09/16/19 05:20 - Additional Planning My Orders: My Active Orders 09/16/19 10:37 Transfer [Admit \\ Transfer \\ Status] [RC] .ONCE Subjective - Subjective Patient Reports: Dizzines (Patient states that she gets "vertigo" and at home she needs to get "maneuvers", this has occurred occasionally for the past 3 weeks. Since yesterday she describes feeling "dizzy".) Nursing Reports: Other (She only took applesauce and Ensure for breakfast.) Objective Vital Signs: Vital Signs - 24 hr 09/15/19 09/15/19 09/15/19 11:49 11:52 15:29 Temperature 36.4 C L 36.5 C Heart Rate Heart Rate [ 88 106 H Brachial] Heart Rate [ 93 Sitting (After 1 Minute)] Heart Rate [ Standing (After 1 Minute)] Heart Rate [ 88 Supine] Respiratory 20 24 Rate Blood Pressure 136/75 H 120/73 [Left Brachial artery] Blood Pressure [Right Brachial artery] Blood Pressure 138/87 H [Sitting (After 1 Minute)] Blood Pressure [Standing ( After 1 Minute) ] Blood Pressure 136/75 H [Supine] O2 Saturation 98 94 09/15/19 09/16/19 09/16/19 20:29 00:04 05:00 Temperature 36.5 C 36.6 C 36.7 C Heart Rate Heart Rate [ 88 54 L 55 L Brachial] Heart Rate [ Sitting (After 1 Minute)] Heart Rate [ Standing (After 1 Minute)] Heart Rate [ Supine] Respiratory 24 24 22 Rate Blood Pressure [Left Brachial artery] Blood Pressure 117/76 132/65 H 132/59 H [Right Brachial artery] Blood Pressure [Sitting (After 1 Minute)] Blood Pressure [Standing ( After 1 Minute) ] Blood Pressure [Supine] O2 Saturation 98 94 94 09/16/19 09/16/19 09/16/19 07:35 07:44 10:20 Temperature 37.0 C Heart Rate 95 Heart Rate [ 91 Brachial] Heart Rate [ 127 H Sitting (After 1 Minute)] Heart Rate [ 122 H Standing (After 1 Minute)] Heart Rate [ 112 H Supine] Respiratory 22 20 Rate Blood Pressure [Left Brachial artery] Blood Pressure 137/63 H [Right Brachial artery] Blood Pressure 101/61 [Sitting (After 1 Minute)] Blood Pressure 97/62 [Standing ( After 1 Minute) ] Blood Pressure 118/46 L [Supine] O2 Saturation 97 Oxygen O2 Source Room air Oxygen Flow Rate 3 I&O (Last 24 Hrs): Intake and Output Totals x24h 09/14/19 09/15/19 09/16/19 23:59 23:59 23:59 Intake Total 2594.126 1607.721 1189 Output Total 250 330 100 Balance 2344.126 4780.827 7560 General: Alert, Other (Appears fatigued. Has pursed lip breathing when she has to sit up in bed, is wearimng O2 per nasal cannula.) HEENT: Atraumatic, Other (Dry oral mucosa) Neck: Supple Neuro: Alert, Non Focal Cardiovascular: Regular rate, Other (Tachycardic) Respiratory: Other (Diminished breath sounds diffusely, poor air movement, no wheezes or) Abdomen: Soft Extremities: No edema, Other (Mottled skin of legs, (+) tenting of skin diffusely, multiple ecchymoses of arms.) Skin: No rashes (Thin friable skin diffusely. Several large bandages are over her mid and low back posteriorly.) - Results Results: Laboratory Results WBC 15.0 x10^3/uL (4.8-10.8) H 09/16/19 05:20 RBC 3.35 10^6/uL (4.20-5.40) L 09/16/19 05:20 Hgb 11.9 g/dL (12.0-16.0) L 09/16/19 05:20 Hct 36.5 % (37.0-47.0) L 09/16/19 05:20 MCV 109.0 fL (81.0-99.0) H 09/16/19 05:20 MCH 35.5 pg (27.0-31.0) H 09/16/19 05:20 MCHC 32.6 g/dL (32.0-36.0) 09/16/19 05:20 RDW 18.6 % (12.0-15.0) H 09/16/19 05:20 Plt Count 156 10^3/uL (130-450) 09/16/19 05:20 MPV 10.1 fL (7.9-10.8) 09/16/19 05:20 Neut # (Auto) 12.3 10^3/uL (1.5-6.6) H 09/16/19 05:20 Lymph # (Auto) 1.5 10^3/uL (1.5-3.5) 09/16/19 05:20 [place] # (Auto) 0.6 10^3/uL (0.0-1.0) 09/16/19 05:20 Eos # (Auto) 0.0 10^3/uL (0.0-0.7) 09/16/19 05:20 Baso # (Auto) 0.1 10^3/uL (0.0-0.1) 09/16/19 05:20 Absolute Nucleated RBC 0.09 x10^3/uL 09/16/19 05:20 Total Counted 100 09/15/19 04:20 Band Neuts % (Manual) 2 % (0-10) 09/15/19 04:20 Abnorm Lymph % (Manual) 0 % 09/15/19 04:20 Metamyelocytes % 1 % (-0) H 09/14/19 06:10 Myelocytes % 1 % (-0) H 09/15/19 04:20 Nucleated RBC % 0.6 /100WBC 09/16/19 05:20 Neutrophils # (Manual) 11.3 10^3/uL (1.5-6.6) H 09/15/19 04:20 Lymphocytes # (Manual) 1.8 10^3/uL (1.5-3.5) 09/15/19 04:20 Monocytes # (Manual) 0.3 10^3/uL (0.0-1.0) 09/15/19 04:20 Eosinophils # (Manual) 0.0 10^3/uL (0-0.7) 09/15/19 04:20 Basophils # (Manual) 0.0 10^3/uL (0-0.1) 09/15/19 04:20 Differential Comment MANUAL DIFFERENTIAL 09/15/19 04:20 WBC Morphology NORMAL APPEARANCE (NORMAL) 09/15/19 04:20 Platelet Estimate NORMAL (130-450,000) (NORMAL) 09/15/19 04:20 Platelet Morphology NORMAL APPEARANCE (NORMAL) 09/15/19 04:20 RBC Morph Micro Appear 1+ ANISOCYTOSIS (NORMAL) 2+ MACROCYTOSIS (NORMAL) 09/15/19 04:20 RBC Morph Micro Appear 1+ ANISOCYTOSIS (NORMAL) 2+ MACROCYTOSIS (NORMAL) 09/15/19 04:20 ESR 19 mm/Hr (0-30) 09/12/19 21:02 Sodium 141 mmol/L (135-145) 09/16/19 05:20 Potassium 3.3 mmol/L (3.5-5.0) L 09/16/19 05:20 Chloride 105 mmol/L (101-111) 09/16/19 05:20 Carbon Dioxide 25 mmol/L (21-32) 09/16/19 05:20 Anion Gap 11.0 (6-13) 09/16/19 05:20 BUN 13 mg/dL (6-20) 09/16/19 05:20 Creatinine 0.5 mg/dL (0.4-1.0) 09/16/19 05:20 Estimated GFR (MDRD) 120 (>89) 09/16/19 05:20 Glucose 99 mg/dL (70-100) 09/16/19 05:20 Lactic Acid 1.7 mmol/L (0.5-2.2) 09/12/19 21:02 Calcium 8.7 mg/dL (8.5-10.3) 09/16/19 05:20 Phosphorus 1.9 mg/dL (2.5-4.6) L 09/16/19 05:20 Magnesium 1.7 mg/dL (1.7-2.8) 09/16/19 05:20 Total Bilirubin 0.9 mg/dL (0.2-1.0) 09/12/19 21:02 AST 18 IU/L (10-42) 09/12/19 21:02 ALT 17 IU/L (10-60) 09/12/19 21:02 Alkaline Phosphatase 116 IU/L (42-121) 09/12/19 21:02 Total Creatine Kinase 14 IU/L (22-269) L 09/16/19 05:20 CK-MB (CK-2) 3.0 ng/mL (0.6-6.3) 09/12/19 21:02 Troponin I High Sens 24.8 ng/L (2.3-14.8) H* 09/15/19 16:14 C-Reactive Protein 2.9 mg/dL (0-1.0) H 09/12/19 21:02 B-Natriuretic Peptide 245 pg/mL (5-100) H 09/15/19 16:14 Total Protein 6.5 g/dL (6.7-8.2) L 09/12/19 21:02 Albumin 3.0 g/dL (3.2-5.5) L 09/12/19 21:02 Globulin 3.5 g/dL (2.1-4.2) 09/12/19 21:02 Albumin/Globulin Ratio 0.9 (1.0-2.2) L 09/12/19 21:02 Lipase 43 U/L (22-51) 09/12/19 21:02 TSH 2.78 uIU/mL (0.34-5.60) 09/12/19 21:02 Urine Color YELLOW 09/12/19 22:15 Urine Clarity CLEAR (CLEAR) 09/12/19 22:15 Urine pH 6.5 PH (5.0-7.5) 09/12/19 22:15 Ur Specific [place] 1.020 (1.002-1.030) 09/12/19 22:15 Urine Protein TRACE mg/dL (NEGATIVE) 09/12/19 22:15 Urine Glucose (UA) NEGATIVE mg/dL (NEGATIVE) 09/12/19 22:15 Urine Ketones 15 mg/dL (NEGATIVE) H 09/12/19 22:15 Urine Occult Blood NEGATIVE (NEGATIVE) 09/12/19 22:15 Urine Nitrite NEGATIVE (NEGATIVE) 09/12/19 22:15 Urine Bilirubin NEGATIVE (NEGATIVE) 09/12/19 22:15 Urine Urobilinogen 0.2 (NORMAL) E.U./dL (NORMAL) 09/12/19 22:15 Ur Leukocyte Esterase NEGATIVE (NEGATIVE) 09/12/19 22:15 Ur Microscopic Review NOT INDICATED 09/12/19 22:15 Urine Culture Comments NOT INDICATED 09/12/19 22:15 Coronavirus (PCR) NEGATIVE 09/13/19 08:15 - Procedures Procedures: Procedures REPLACEMENT OF LEFT LENS WITH SYNTH SUB, PERC APPROACH (02/02/19) REPLACEMENT OF RIGHT LENS WITH SYNTH SUB, PERC APPROACH (12/01/18) Sepsis Event Note (H) - Evaluation Current Stage of Sepsis: Ruled out
[2019-09-16] MEDS: D5NS W/20 MEQ KCL 1,000 ML IV SCH ×2 (12:07→23:28)
[2019-09-16] MEDS: KETOROLAC 15 MG/ML VIAL IVP PRN (14:40)
[2019-09-16] MEDS: MONTELUKAST 10 MG TABLET PO SCH (20:57)
[2019-09-17] MEDS: SODIUM CHLORIDE FLUSH 0.9% 10 ML SYRINGE IVP SCH ×3 (00:05→15:56)
[2019-09-17] MEDS: BENZONATATE 100 MG CAPSULE PO PRN (03:50)
[2019-09-17] MEDS: LEVALBUTEROL 1.25 MG/3 ML NEB INH PRN (05:05)
[2019-09-17] MEDS: KETOROLAC 15 MG/ML VIAL IVP PRN ×3 (05:07→15:56)
[2019-09-17 06:10] LABS: BASOPHILS % (AUTO) 0.3 %; EOSINOPHILS % (AUTO) 0.3 %; HGB - HEMOGLOBIN 10.5 g/dL (12.0-16.0); LYMPHOCYTES # (AUTO) 1.2 10^3/uL (1.5-3.5); LYMPHOCYTES % (AUTO) 9.7 %; MEAN CORPUSCULAR HEMOGLOBIN 34.8 pg (27.0-31.0); MEAN CORPUSCULAR HGB CONC 31.9 g/dL (32.0-36.0); MEAN CORPUSCULAR VOLUME 108.9 fL (81.0-99.0); MEAN PLATELET VOLUME 10.6 fL (7.9-10.8); MONOCYTES # (AUTO) 0.6 10^3/uL (0.0-1.0); MONOCYTES % (AUTO) 4.3 %; NEUTROPHILS # (AUTO) 10.6 10^3/uL (1.5-6.6); NEUTROPHILS % (AUTO) 82.2 %; PLT - PLATELET COUNT 133 10^3/uL (130-450); RED BLOOD COUNT 3.02 10^6/uL (4.20-5.40); RED CELL DISTRIBUTION WIDTH 18.8 % (12.0-15.0); WHITE BLOOD COUNT 12.8 x10^3/uL (4.8-10.8)
[2019-09-17 06:22] LABS: CREATININE 0.4 mg/dL (0.4-1.0); MAGNESIUM 1.7 mg/dL (1.7-2.8); PHOSPHORUS 1.6 mg/dL (2.5-4.6)
[2019-09-17] MEDS ORDERED: KETOROLAC 30 MG/ML VIAL IVP PRN (07:49)
--- NOTE | 2019-09-17 07:57 | PROVIDER PROGRESS NOTE ---
Assessment/Plan - Problem List (1) V-tach Assessment/Plan: She had a 3 beat run of V. tach, was asymptomatic and BP stable at 132/72. Troponins were just checked and she also had echo this admission that is within normal limits. It is likely related to her low magnesium and low potassium today. Replace electrolytes. Follow BMP and Mg daily. (2) Chronic respiratory failure with hypoxia Assessment/Plan: She had increased dyspnea with tachypnea overnight, supplemental oxygen was increased to 5 L briefly, it came down to 3 L after she had Xopenex and a pain medication. Will obtain a chest x-ray to evaluate for CHF, since IV fluids were started yesterday, or infiltrate (see #2). Decrease IV fluid rate from 83cc/h to 60cc/h. Add Mucinex for pulmonary toilet, she already has Tessalon Perles but these are PRN. Continue Xopenex. Albuterol was stopped when she had tachycardia yesterday. (3) HCAP (healthcare-associated pneumonia) Assessment/Plan: The morning chest x-ray showed right-sided infiltrate on top of pulmonary fibrosis, it was not read as CHF. Will order sputum culture, if she makes sputum. We will start empiric IV Zosyn for HCAP. (4) Pulmonary fibrosis Assessment/Plan: He is on 3 L of oxygen continuously at home, Continue with nebs which appear to help her. Continue with daily steroids, no taper is planned. Add management for pulmonary toilet with scheduled Mucinex, Tessalon Perles as needed. She would not tolerate chest PT because of her osteoporosis and sco liosis. Palliative Care consult has been requested, since she is failing rapidly and has this diagnosis which carries a poor prognosis. (5) Chronic pain Assessment/Plan: Her oral Tramadol was discontinued yesterday in order to prevent nausea and decrease somnolence adding to fatigue. The Toradol dose was only helping the pain briefly. Will add Morphine both for dyspnea and for pain management, dangelo very low dose, to avoid sedation. (6) Orthostatic hypotension Assessment/Plan: Resting blood pressure is good without any of her home blood pressure medications. Continue to check orthostatic vital signs daily. Continue gentle IV hydration. (7) Profound fatigue Assessment/Plan: This is multifactorial: Deconditioning, chronic pain, chronic steroid use with osteopenia, severe pulmonary fibrosis with dyspnea, severe protein calorie malnutrition. She refuses to do the standing portion of an orthostatic blood pressure check, because of fatigue. She will likely need a SNF after this hospitalization for PT rehab. (8) Dehydration Assessment/Plan: IV fluids started yesterday. Her oral hydration is poor Follow BMP daily. (9) Severe protein-calorie malnutrition Assessment/Plan: Her diet was changed from regular diet to pured yesterday, since she likes applesauce. Continue daily Ensure supplements. Offer any nutrition that is appealing to her. She likes tacos, Discussion with her RN. Will allow tacos. (10) Decubitus ulcer of lower back, unstageable Assessment/Plan: Will order a wound consult from [facility] tomorrow. Continue with the bandages. (11) Hypophosphatemia Assessment/Plan: She needed 1 additional IV rider of phosphate today, on top of her daily p.o. 3 times daily phosphate (12) Scoliosis/kyphoscoliosis Assessment/Plan: This is adding to her dyspnea and her pain (13) Osteoporosis Assessment/Plan: She is on calcium and vitamin D and phosphate (14) Hx of essential hypertension Assessment/Plan: She does not know home blood pressure medications, was very orthostatic the last 3 days. Her supine blood pressure is not hypertensive at 120-138/60-80. (15) Tachycardia Assessment/Plan: Resolved after iv hydration started and Albuterol changed to Xopenex for neb treatments. (16) Hypokalemia Assessment/Plan: Resolved with replacement (17) Livedo reticularis Assessment/Plan: Improved after iv hydration and better BPs - Current Meds Current Meds: Current Medications Generic Name Dose Route Start Last Admin Trade Name Freq PRN Reason Stop Dose Admin Acetaminophen 650 mg 09/12/19 23:28 09/14/19 06:31 Tylenol PO 650 mg Q4HR PRN Administration Pain 1 to 4 Benzonatate 100 mg 09/13/19 10:08 09/17/19 03:50 Tessalon PO 100 mg TID PRN Administration Cough Calcium Carbonate/Glycine 500 mg 09/13/19 21:00 09/16/19 20:57 Tums PO 500 mg BID MARYCHUY Administration Enoxaparin Sodium 40 mg 09/13/19 09:00 09/16/19 09:04 Lovenox SUBQ 40 mg DAILY MARYCHUY Administration Levalbuterol HCl 1.25 mg 09/16/19 12:48 09/17/19 05:05 Xopenex INH 1.25 mg Q4H PRN Administration Shortness of Air/Wheezing Mineral Oil 1 applic 09/16/19 09:53 09/16/19 14:28 Cavilon TOP 1 applic PRN PRN Administration Skin Care Montelukast Sodium 10 mg 09/16/19 21:00 09/16/19 20:57 Singulair PO 10 mg QPM MARYCHUY Administration Multivitamins/Minerals 1 tab 09/13/19 16:00 09/16/19 08:57 Theragran M PO 1 tab DAILYWM MARYCHUY Administration Ondansetron HCl 4 mg 09/12/19 23:28 09/16/19 09:04 Zofran Inj IVP 4 mg Q6HR PRN Administration Nausea / Vomiting Polyethylene Glycol 17 gm 09/14/19 09:00 09/16/19 09:01 Miralax PO 17 gm DAILY MARYCHUY Administration Prednisone 10 mg 09/13/19 12:00 09/16/19 08:57 Deltasone PO 10 mg DAILYWM MARYCHUY Administration Sodium Chloride 10 ml 09/12/19 23:28 09/16/19 09:04 Normal Saline Flush 0.9% IVP 10 ml PRN PRN Administration NEEDED PER PROVIDER ORDERS Sodium Chloride 10 ml 09/13/19 01:00 09/17/19 00:05 Normal Saline Flush 0.9% IVP Not Given 0100,0900,1700 MARYCHUY Sodium Phosphate 250 mg 09/15/19 08:00 09/16/19 16:59 K-Phos Neutral PO 250 mg TIDWM MARYCHUY Administration - Lab Result Fish Bone Diagrams: 09/17/19 05:25 09/17/19 05:25 - Diagnostic Imaging Results Diagnostic Imaging Results: Read independently - Additional Planning My Orders: My Active Orders 09/16/19 11:40 Miscellaenous Nursing Order [RC] QSHIFT 09/16/19 12:48 Levalbuterol [Xopenex] 1.25 mg INH Q4H PRN 09/16/19 Dinner Dysphagia Puree Diet [DIET] 09/16/19 21:00 Montelukast [Singulair] 10 mg PO QPM 09/17/19 07:48 Chest 1 View X-Ray [XR] Routine 09/17/19 07:48 D5ns W/20 Meq KCl 1,000 ml IV 60 mls/hr 09/17/19 07:49 Ketorolac Inj (30Mg) [Toradol Inj (30Mg)] 30 mg IVP Q6HR PRN 09/17/19 07:51 Morphine Inj (Carpuject) [Morphine (Carpuject)] 1 mg IVP Q6HR PRN 09/17/19 07:52 Miscellaenous Nursing Order [RC] QSHIFT 09/17/19 09:00 Cholecalciferol [Vitamin D3] 800 unit PO DAILY guaiFENesin [Mucinex] 600 mg PO DAILY Subjective - Subjective Patient Reports: Shortness of Breath (Overnight her respiratory rate increased to 32 and she needed a brief increase of supplemental oxygen to 5 L, SOB improved with her Xopenex treatment.), Other (Has more energy since iv fluids started yesterday) Objective Vital Signs: Vital Signs - 24 hr 09/16/19 09/16/19 09/16/19 10:20 11:21 15:43 Temperature 36.8 C 37.6 C H Heart Rate Heart Rate [ Apical] Heart Rate [ 105 H 83 Brachial] Heart Rate [ 127 H Sitting (After 1 Minute)] Heart Rate [ 122 H Standing (After 1 Minute)] Heart Rate [ 112 H Supine] Respiratory 24 24 Rate Blood Pressure [Left Brachial artery] Blood Pressure 108/53 L 115/65 [Right Brachial artery] Blood Pressure 101/61 [Sitting (After 1 Minute)] Blood Pressure 97/62 [Standing ( After 1 Minute) ] Blood Pressure 118/46 L [Supine] O2 Saturation 98 99 09/16/19 09/16/19 09/16/19 16:07 20:00 23:56 Temperature 37.3 C 37.4 C 37 C Heart Rate Heart Rate [ Apical] Heart Rate [ 84 55 L Brachial] Heart Rate [ Sitting (After 1 Minute)] Heart Rate [ Standing (After 1 Minute)] Heart Rate [ Supine] Respiratory 24 24 Rate Blood Pressure 127/60 119/49 L [Left Brachial artery] Blood Pressure [Right Brachial artery] Blood Pressure [Sitting (After 1 Minute)] Blood Pressure [Standing ( After 1 Minute) ] Blood Pressure [Supine] O2 Saturation 97 98 09/17/19 09/17/19 09/17/19 02:14 04:50 05:11 Temperature 37.3 C Heart Rate 69 Heart Rate [ 75 Apical] Heart Rate [ 80 Brachial] Heart Rate [ Sitting (After 1 Minute)] Heart Rate [ Standing (After 1 Minute)] Heart Rate [ Supine] Respiratory 28 H 30 H 16 Rate Blood Pressure 132/61 H 138/73 H [Left Brachial artery] Blood Pressure [Right Brachial artery] Blood Pressure [Sitting (After 1 Minute)] Blood Pressure [Standing ( After 1 Minute) ] Blood Pressure [Supine] O2 Saturation 98 100 09/17/19 09/17/19 05:39 07:48 Temperature 36.9 C Heart Rate Heart Rate [ Apical] Heart Rate [ 90 62 Brachial] Heart Rate [ Sitting (After 1 Minute)] Heart Rate [ Standing (After 1 Minute)] Heart Rate [ Supine] Respiratory 23 20 Rate Blood Pressure 120/64 [Left Brachial artery] Blood Pressure 119/61 [Right Brachial artery] Blood Pressure [Sitting (After 1 Minute)] Blood Pressure [Standing ( After 1 Minute) ] Blood Pressure [Supine] O2 Saturation 95 98 Oxygen O2 Source Oxymizer Oxygen Flow Rate 3 I&O (Last 24 Hrs): Intake and Output Totals x24h 09/15/19 09/16/19 09/17/19 23:59 23:59 23:59 Intake Total 6424.466 3407.829 Output Total 330 375 200 Balance 5560.450 8323.829 -200 General: Alert HEENT: Mucous membr. moist/pink, Other (Cushingoid) Neck: Supple Neuro: Alert, Non Focal Cardiovascular: Regular rate, No murmurs Respiratory: No respiratory distress Abdomen: Soft Extremities: No edema, Other (Fine friable skin) Comments/Notes: Has bandages over her wounds of her lower back. Has severe kyphoscoliosis. - Results Results: Laboratory Results WBC 12.8 x10^3/uL (4.8-10.8) H 09/17/19 05:25 RBC 3.02 10^6/uL (4.20-5.40) L 09/17/19 05:25 Hgb 10.5 g/dL (12.0-16.0) L 09/17/19 05:25 Hct 32.9 % (37.0-47.0) L 09/17/19 05:25 MCV 108.9 fL (81.0-99.0) H 09/17/19 05:25 MCH 34.8 pg (27.0-31.0) H 09/17/19 05:25 MCHC 31.9 g/dL (32.0-36.0) L 09/17/19 05:25 RDW 18.8 % (12.0-15.0) H 09/17/19 05:25 Plt Count 133 10^3/uL (130-450) 09/17/19 05:25 MPV 10.6 fL (7.9-10.8) 09/17/19 05:25 Neut # (Auto) 10.6 10^3/uL (1.5-6.6) H 09/17/19 05:25 Lymph # (Auto) 1.2 10^3/uL (1.5-3.5) L 09/17/19 05:25 [place] # (Auto) 0.6 10^3/uL (0.0-1.0) 09/17/19 05:25 Eos # (Auto) 0.0 10^3/uL (0.0-0.7) 09/17/19 05:25 Baso # (Auto) 0.0 10^3/uL (0.0-0.1) 09/17/19 05:25 Absolute Nucleated RBC 0.05 x10^3/uL 09/17/19 05:25 Total Counted 100 09/15/19 04:20 Band Neuts % (Manual) 2 % (0-10) 09/15/19 04:20 Abnorm Lymph % (Manual) 0 % 09/15/19 04:20 Metamyelocytes % 1 % (-0) H 09/14/19 06:10 Myelocytes % 1 % (-0) H 09/15/19 04:20 Nucleated RBC % 0.4 /100WBC 09/17/19 05:25 Neutrophils # (Manual) 11.3 10^3/uL (1.5-6.6) H 09/15/19 04:20 Lymphocytes # (Manual) 1.8 10^3/uL (1.5-3.5) 09/15/19 04:20 Monocytes # (Manual) 0.3 10^3/uL (0.0-1.0) 09/15/19 04:20 Eosinophils # (Manual) 0.0 10^3/uL (0-0.7) 09/15/19 04:20 Basophils # (Manual) 0.0 10^3/uL (0-0.1) 09/15/19 04:20 Differential Comment MANUAL DIFFERENTIAL 09/15/19 04:20 WBC Morphology NORMAL APPEARANCE (NORMAL) 09/15/19 04:20 Platelet Estimate NORMAL (130-450,000) (NORMAL) 09/15/19 04:20 Platelet Morphology NORMAL APPEARANCE (NORMAL) 09/15/19 04:20 RBC Morph Micro Appear 1+ ANISOCYTOSIS (NORMAL) 2+ MACROCYTOSIS (NORMAL) 09/15/19 04:20 RBC Morph Micro Appear 1+ ANISOCYTOSIS (NORMAL) 2+ MACROCYTOSIS (NORMAL) 09/15/19 04:20 ESR 19 mm/Hr (0-30) 09/12/19 21:02 Sodium 141 mmol/L (135-145) 09/17/19 05:25 Potassium 3.6 mmol/L (3.5-5.0) 09/17/19 05:25 Chloride 108 mmol/L (101-111) 09/17/19 05:25 Carbon Dioxide 26 mmol/L (21-32) 09/17/19 05:25 Anion Gap 7.0 (6-13) 09/17/19 05:25 BUN 9 mg/dL (6-20) 09/17/19 05:25 Creatinine 0.4 mg/dL (0.4-1.0) 09/17/19 05:25 Estimated GFR (MDRD) 156 (>89) 09/17/19 05:25 Glucose 130 mg/dL (70-100) H 09/17/19 05:25 Lactic Acid 1.7 mmol/L (0.5-2.2) 09/12/19 21:02 Calcium 8.0 mg/dL (8.5-10.3) L 09/17/19 05:25 Phosphorus 1.6 mg/dL (2.5-4.6) L 09/17/19 05:25 Magnesium 1.7 mg/dL (1.7-2.8) 09/17/19 05:25 Total Bilirubin 0.9 mg/dL (0.2-1.0) 09/12/19 21:02 AST 18 IU/L (10-42) 09/12/19 21:02 ALT 17 IU/L (10-60) 09/12/19 21:02 Alkaline Phosphatase 116 IU/L (42-121) 09/12/19 21:02 Total Creatine Kinase 14 IU/L (22-269) L 09/16/19 05:20 CK-MB (CK-2) 3.0 ng/mL (0.6-6.3) 09/12/19 21:02 Troponin I High Sens 24.8 ng/L (2.3-14.8) H* 09/15/19 16:14 C-Reactive Protein 2.9 mg/dL (0-1.0) H 09/12/19 21:02 B-Natriuretic Peptide 245 pg/mL (5-100) H 09/15/19 16:14 Total Protein 6.5 g/dL (6.7-8.2) L 09/12/19 21:02 Albumin 3.0 g/dL (3.2-5.5) L 09/12/19 21:02 Globulin 3.5 g/dL (2.1-4.2) 09/12/19 21:02 Albumin/Globulin Ratio 0.9 (1.0-2.2) L 09/12/19 21:02 Lipase 43 U/L (22-51) 09/12/19 21:02 TSH 2.78 uIU/mL (0.34-5.60) 09/12/19 21:02 Urine Color YELLOW 09/12/19 22:15 Urine Clarity CLEAR (CLEAR) 09/12/19 22:15 Urine pH 6.5 PH (5.0-7.5) 09/12/19 22:15 Ur Specific [place] 1.020 (1.002-1.030) 09/12/19 22:15 Urine Protein TRACE mg/dL (NEGATIVE) 09/12/19 22:15 Urine Glucose (UA) NEGATIVE mg/dL (NEGATIVE) 09/12/19 22:15 Urine Ketones 15 mg/dL (NEGATIVE) H 09/12/19 22:15 Urine Occult Blood NEGATIVE (NEGATIVE) 09/12/19 22:15 Urine Nitrite NEGATIVE (NEGATIVE) 09/12/19 22:15 Urine Bilirubin NEGATIVE (NEGATIVE) 09/12/19 22:15 Urine Urobilinogen 0.2 (NORMAL) E.U./dL (NORMAL) 09/12/19 22:15 Ur Leukocyte Esterase NEGATIVE (NEGATIVE) 09/12/19 22:15 Ur Microscopic Review NOT INDICATED 09/12/19 22:15 Urine Culture Comments NOT INDICATED 09/12/19 22:15 Coronavirus (PCR) NEGATIVE 09/13/19 08:15 - Procedures Procedures: Procedures REPLACEMENT OF LEFT LENS WITH SYNTH SUB, PERC APPROACH (02/02/19) REPLACEMENT OF RIGHT LENS WITH SYNTH SUB, PERC APPROACH (12/01/18) Sepsis Event Note (H) - Evaluation Current Stage of Sepsis: Ruled out
[2019-09-17] MEDS ORDERED: MAGNESIUM OXIDE 400 MG TABLET PO ONE (08:00)
--- NOTE | 2019-09-17 08:47 | XRAY Report ---
PROCEDURE: Chest 1 View X-Ray INDICATIONS: Increased SOB TECHNIQUE: One view of the chest was acquired. COMPARISON: 09/15/2019 FINDINGS: Surgical changes and devices: None. Lungs and pleura: No pleural effusions or pneumothorax. Submaximal pulmonary expansion. Consolidatio n in the right lung superimposed on bilateral pulmonary fibrosis appears slightly progressed. Calcifi ed pleural plaque again noted. Mediastinum: Mediastinal contours appear normal. Heart size is normal. Bones and chest wall: No suspicious bony lesions. Overlying soft tissues appear unremarkable. IMPRESSION: 1. Slight interval progression of consolidation in the right lung. This is superimposed on chronic in terstitial pulmonary fibrosis. Reviewed by: Mo Danielson MD on 09/17/2019 7:46 AM [facility] Approved by: Mo Danielson MD on 09/17/2019 7:46 AM [facility] Station ID: [id number]
[2019-09-17] MEDS: ENOXAPARIN 40 MG/0.4 ML SYRINGE SUBQ SCH (08:50)
[2019-09-17] MEDS: CALCIUM CARBONATE CHEW 500 MG TABLET PO SCH ×2 (08:51→20:26)
[2019-09-17] MEDS: CHOLECALCIFEROL 400 UNIT TABLET PO SCH (08:51)
[2019-09-17] MEDS: polyethylene glycoL 3350 17 GM PACKET PO SCH (08:51)
[2019-09-17] MEDS: guaiFENesin 600 MG TABLET PO SCH (08:51)
[2019-09-17] MEDS: MULTIVITAMIN W/MINERALS TABLET PO SCH (08:51)
[2019-09-17] MEDS: NEUTRA-PHOS 250 MG TABLET PO SCH ×3 (08:51→15:56)
[2019-09-17] MEDS: predniSONE 10 MG TABLET PO SCH (08:51)
[2019-09-17] MEDS ORDERED: POTASSIUM PHOSPHATE 15 MMOL in SODIUM CHLORIDE 0.9% 250 ML IV ONE (09:00)
[2019-09-17] MEDS ORDERED: AZTREONAM 2 GM in SODIUM CHLORIDE 0.9% MINIBAG 100 ML IV SCH (09:00)
[2019-09-17] MEDS: ACETAMINOPHEN 325 MG TABLET PO PRN (09:18)
[2019-09-17] MEDS ORDERED: PIPERACILLIN/TAZOBACTAM 4.5 GM in SODIUM CHLORIDE 0.9% MINIBAG 100 ML IV ONE (10:00)
[2019-09-17] MEDS: PIPERACILLIN/TAZOBACTAM 4.5 GM in SODIUM CHLORIDE 0.9% MINIBAG 100 ML IV SCH ×2 (12:19→20:26)
[2019-09-17] MEDS: MORPHINE 2 MG/ML CARPUJECT IVP PRN ×2 (12:38→20:37)
[2019-09-17] MEDS: MONTELUKAST 10 MG TABLET PO SCH (20:26)
[2019-09-17] MEDS: D5NS W/20 MEQ KCL 1,000 ML IV SCH (20:27)
[2019-09-18] MEDS: SODIUM CHLORIDE FLUSH 0.9% 10 ML SYRINGE IVP SCH ×3 (00:38→16:38)
[2019-09-18] MEDS: KETOROLAC 15 MG/ML VIAL IVP PRN ×2 (01:47→16:48)
[2019-09-18] MEDS: ONDANSETRON 4 MG/2 ML VIAL IVP PRN ×3 (03:32→16:38)
[2019-09-18] MEDS: MORPHINE 2 MG/ML CARPUJECT IVP PRN ×2 (03:32→12:25)
[2019-09-18] MEDS: PIPERACILLIN/TAZOBACTAM 4.5 GM in SODIUM CHLORIDE 0.9% MINIBAG 100 ML IV SCH ×3 (05:20→20:18)
[2019-09-18] MEDS: LEVALBUTEROL 1.25 MG/3 ML NEB INH PRN (05:41)
[2019-09-18 05:42] LABS: BASOPHILS % (AUTO) 0.4 %; EOSINOPHILS # (AUTO) 0.1 10^3/uL (0.0-0.7); EOSINOPHILS % (AUTO) 0.8 %; HGB - HEMOGLOBIN 9.8 g/dL (12.0-16.0); LYMPHOCYTES % (AUTO) 8.7 %; MEAN CORPUSCULAR HEMOGLOBIN 34.8 pg (27.0-31.0); MEAN CORPUSCULAR HGB CONC 31.2 g/dL (32.0-36.0); MEAN CORPUSCULAR VOLUME 111.3 fL (81.0-99.0); MEAN PLATELET VOLUME 10.6 fL (7.9-10.8); MONOCYTES # (AUTO) 0.6 10^3/uL (0.0-1.0); MONOCYTES % (AUTO) 5.2 %; NEUTROPHILS # (AUTO) 9.1 10^3/uL (1.5-6.6); NEUTROPHILS % (AUTO) 81.5 %; PLT - PLATELET COUNT 111 10^3/uL (130-450); RED BLOOD COUNT 2.82 10^6/uL (4.20-5.40); RED CELL DISTRIBUTION WIDTH 18.8 % (12.0-15.0); WHITE BLOOD COUNT 11.2 x10^3/uL (4.8-10.8)
[2019-09-18 06:05] LABS: CALCIUM 7.7 mg/dL (8.5-10.3); CREATININE 0.4 mg/dL (0.4-1.0)
[2019-09-18 06:13] LABS: RBC MORPHOLOGY (MULTIPLE) 2+ MACROCYTOSIS (NORMAL)
[2019-09-18 06:14] LABS: PLATELET ESTIMATE, MANUAL DECREASED (<130,000) (NORMAL); PLATELET MORPHOLOGY NORMAL APPEARANCE (NORMAL)
[2019-09-18] MEDS: CHOLECALCIFEROL 400 UNIT TABLET PO SCH (08:25)
[2019-09-18] MEDS: predniSONE 10 MG TABLET PO SCH (08:25)
[2019-09-18] MEDS: NEUTRA-PHOS 250 MG TABLET PO SCH ×3 (08:25→16:49)
[2019-09-18] MEDS: CALCIUM CARBONATE CHEW 500 MG TABLET PO SCH ×2 (08:25→20:17)
[2019-09-18] MEDS: ENOXAPARIN 40 MG/0.4 ML SYRINGE SUBQ SCH (08:25)
[2019-09-18] MEDS: guaiFENesin 600 MG TABLET PO SCH (08:25)
[2019-09-18] MEDS: polyethylene glycoL 3350 17 GM PACKET PO SCH (08:25)
[2019-09-18] MEDS: MULTIVITAMIN W/MINERALS TABLET PO SCH (08:26)
--- NOTE | 2019-09-18 08:30 | PROVIDER PROGRESS NOTE ---
Assessment/Plan - Problem List (1) V-tach Assessment/Plan: She again had a short run of VTach at 0810, was asymptomatic and BP stable at 129/69. Troponins and Echo have been done this admission and were unremarkable. Her morning K was normal, but Mg was not done. Will check serum Mg and replace if low. (2) PSVT (paroxysmal supraventricular tachycardia) Assessment/Plan: Later in the day today, she had a run of PSVT at a rate of 200-250. It broke spontaneously. She did "feel fluttering" she said, but there was no chest pain or shortness of breath. Her blood pressure with this was low at 101/54. Atrial dysrhythmias are very common in patients with significant pulmonary disease. Will resume po Cardizem, at a lower dose than she was on at home. The home Car dizem dose was not resumed since admission, due to low BP and orthostasis. Continue with IV fluids for her low blood pressure. Her other BP meds (Lisinopril and Lasix) have also been stopped. Her TSH was normal at 2.6, at admission. (3) Chronic respiratory failure with hypoxia Assessment/Plan: At admission she needed supplemental O2 at 5 L, this is now come down to her usual 3 L continuous oxygen by nasal cannula. The underlying cause is pulmonary fibrosis. Her COVID test was neg, this admission. Today was the first time she had a Palliative Care consult and Sera Merritt, CLERICAL PROOFREADER, reported that the patient has very poor insight into the severity of her lung disease. (4) HCAP (healthcare-associated pneumonia) Assessment/Plan: She was admitted with weakness and dyspnea, into Observation status initially, then got continuously worse, weaker, nauseated and orthostasis was documented. She was then made an inpatient and started on IV fluids. She was also more short of breath yesterday morning, and a repeat chest x-ray was done yesterday which showed new right-sided infiltrate. She is now being treated for HCAP. Sputum for culture was sent and reported to be just spit and a sputum sample for cx was re-ordered. Continue IV Unasyn. Await sputum culture results to transition to oral antibiotics eventually. Continue Xopenex for nebs; Albuterol was stopped due to her tachycardia. Continue with pulmonary toilet with Mucinex. (5) Pulmonary fibrosis Assessment/Plan: She has been on continuous oxygen for several months now. She is also on daily oral prednisone. This is likely the reason for the elevated white blood count, in the 11-13K range. Appreciate the Palliative Care consult for help with discussion about her goals, given her poor prognosis. She is a DNR, but she has poor understanding of her condition, per Sera Merritt CLERICAL PROOFREADER, who met her for the first time today. (6) Chronic pain Assessment/Plan: She has relatively good pain control, even with the oral Tramadol stopped 2 days ago, which was adding to sedation, it being a narcotic.. (7) Orthostatic hypotension Assessment/Plan: She still has a "soft" blood pressure. Orthostatic VS checks are ordered to be done daily, but for the last 2 days she refused the standing blood pressure check because she was "too weak and dizzy". Continue with IV fluids. (8) Profound fatigue Assessment/Plan: This is likely multifactorial: due to her orthostasis, dyspnea, deconditioning, anemia, chronic steroid use, back pain, severe kyphoscoliosis and her pulmonary fibrosis requiring nasal cannula plus supplemental oxygen. She does require SNF for PT rehab after discharge from here. (9) Dehydration Assessment/Plan: When she was made an inpatient 2 days ago, she had marked skin tenting and dry oral mucosa. Continue with IV fluids since her oral fluid intake is inadequate. Follow serum BMP intermittently. (10) Anemia Assessment/Plan: Her admission hemoglobin was 14.5, this has dropped to 13.5>> 11.9>> 10.5>> 9.8 today Very likely hemo-dilutional since she is 7-8L (+) in fluid balance since admiss ion, but she also likely could have nutritional deficiencies. We will check B12, folate levels and iron stores. Replace if low. Follow CBC daily. Check a stool guaic. (11) Severe protein-calorie malnutrition Assessment/Plan: Her diet was changed from regular diet to pured since she likes applesauce. Continue daily Ensure supplements. Will offer any nutrition that is appealing to her. She likes tacos, per discussion with her RN. Will allow tacos. Fabrication Welder to re-see her today regarding her dietary wishes. (12) Decubitus ulcer of lower back, unstageable Assessment/Plan: She has 2 areas with bandages covering wounds. Wound consult was ordered through the [facility] over the weekend, and is still pending. (13) Hypophosphatemia Assessment/Plan: She requires daily supplement for this. Follow serum phosphate level intermittent (14) Scoliosis/kyphoscoliosis Assessment/Plan: She has marked kyphoscoliosis which is also diminishing her thoracic capacity. (15) Osteoporosis Assessment/Plan: He is on calcium, vitamin D and phosphate replacement. (16) Hx of essential hypertension Assessment/Plan: She was on 3 antihypertensive pills at home before this hospitalization. They are all on hold because of her orthostasis and "soft blood pressures". We will resume some Cardizem today, because of the PSVT. (17) Tachycardia Assessment/Plan: She had a resting sinus tachycardia at admission, this was likely from volume depletion. With IV hydration this has already resolved. (18) Hypokalemia Assessment/Plan: He had been on Lasix at home. K replaced. Follow BMP intermittently. 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 Assessment/Plan: Resolved with better BP - Current Meds Current Meds: Current Medications Generic Name Dose Route Start Last Admin Trade Name Freq PRN Reason Stop Dose Admin Acetaminophen 650 mg 09/12/19 23:28 09/17/19 09:18 Tylenol PO 650 mg Q4HR PRN Administration Pain 1 to 4 Benzonatate 100 mg 09/13/19 10:08 09/17/19 03:50 Tessalon PO 100 mg TID PRN Administration Cough Calcium Carbonate/Glycine 500 mg 09/13/19 21:00 09/18/19 08:25 Tums PO 500 mg BID MARYCHUY Administration Cholecalciferol 800 unit 09/17/19 09:00 09/18/19 08:25 Vitamin D3 PO 800 unit DAILY MARYCHUY Administration Enoxaparin Sodium 40 mg 09/13/19 09:00 09/18/19 08:25 Lovenox SUBQ 40 mg DAILY MARYCHUY Administration Guaifenesin 600 mg 09/17/19 09:00 09/18/19 08:25 Mucinex PO 600 mg DAILY MARYCHUY Administration Potassium Chloride/Dextrose/Sod Cl 1,000 mls @ 60 mls/hr 09/17/19 07:48 09/17/19 20:27 IV 60 mls/hr .[id number] MARYCHUY Administration Piperacillin Sod/Tazobactam 100 mls @ 25 mls/hr 09/17/19 13:00 09/18/19 05:20 Sod 4.5 gm/ Sodium Chloride IV 25 mls/hr Q8H MARYCHUY Administration Ketorolac Tromethamine 15 mg 09/17/19 08:07 09/18/19 01:47 Toradol Inj (15mg) IVP 09/22/19 08:06 15 mg Q6HR PRN Administration PAIN Levalbuterol HCl 1.25 mg 09/16/19 12:48 09/18/19 05:41 Xopenex INH 1.25 mg Q4H PRN Administration Shortness of Air/Wheezing Mineral Oil 1 applic 09/16/19 09:53 09/16/19 14:28 Cavilon TOP 1 applic PRN PRN Administration Skin Care Montelukast Sodium 10 mg 09/16/19 21:00 09/17/19 20:26 Singulair PO 10 mg QPM MARYCHUY Administration Morphine Sulfate 1 mg 09/17/19 07:51 09/18/19 03:32 Morphine (Carpuject) IVP 1 mg Q6HR PRN Administration Dyspnea Multivitamins/Minerals 1 tab 09/13/19 16:00 09/18/19 08:26 Theragran M PO 1 tab DAILYWM MARYCHUY Administration Ondansetron HCl 4 mg 09/12/19 23:28 09/18/19 03:32 Zofran Inj IVP 4 mg Q6HR PRN Administration Nausea / Vomiting Polyethylene Glycol 17 gm 09/14/19 09:00 09/18/19 08:25 Miralax PO 17 gm DAILY MARYCHUY Administration Prednisone 10 mg 09/13/19 12:00 09/18/19 08:25 Deltasone PO 10 mg DAILYWM MARYCHUY Administration Sodium Chloride 10 ml 09/12/19 23:28 09/16/19 09:04 Normal Saline Flush 0.9% IVP 10 ml PRN PRN Administration NEEDED PER PROVIDER ORDERS Sodium Chloride 10 ml 09/13/19 01:00 09/18/19 08:26 Normal Saline Flush 0.9% IVP Not Given 0100,0900,1700 MARYCHUY Sodium Phosphate 250 mg 09/15/19 08:00 09/18/19 08:25 K-Phos Neutral PO 250 mg TIDWM MARYCHUY Administration - Lab Result Fish Bone Diagrams: 09/18/19 05:15 09/18/19 05:15 - Additional Planning My Orders: My Active Orders 09/17/19 07:48 D5ns W/20 Meq KCl 1,000 ml IV 60 mls/hr 09/17/19 07:51 Morphine Inj (Carpuject) [Morphine (Carpuject)] 1 mg IVP Q6HR PRN 09/17/19 07:52 Miscellaenous Nursing Order [RC] QSHIFT 09/17/19 08:07 Ketorolac Inj (15Mg) [Toradol Inj (15Mg)] 15 mg IVP Q6HR PRN 09/17/19 08:53 Miscellaenous Nursing Order [RC] DAILY 09/17/19 08:58 Miscellaenous Nursing Order [RC] ONCE 09/17/19 09:00 Cholecalciferol [Vitamin D3] 800 unit PO DAILY guaiFENesin [Mucinex] 600 mg PO DAILY 09/17/19 13:00 Piperacillin/Tazobactam [Zosyn] 4.5 gm Sodium Chloride 0.9% Minibag [Normal Saline 0.9% Minibag] 100 ml IV Q8H 09/18/19 MAGNESIUM [CHEM] Urgent Subjective - Subjective Patient Reports: Feeling Better, Resting Comfortably Objective Vital Signs: Vital Signs - 24 hr 09/17/19 09/17/19 09/17/19 10:52 11:28 15:29 Temperature 36.8 C 37.7 C H Heart Rate Heart Rate [ 93 Activity] Heart Rate [ 82 Apical] Heart Rate [ 86 Brachial] Heart Rate [ 59 L Standing] Respiratory 18 22 Rate Blood Pressure 130/68 [Activity] Blood Pressure 135/72 H 110/93 H [Left Brachial artery] Blood Pressure [Right Brachial artery] Blood Pressure 118/65 [Standing] O2 Saturation 98 97 09/17/19 09/17/19 09/17/19 16:29 20:14 21:59 Temperature 37.5 C 37.0 C Heart Rate Heart Rate [ Activity] Heart Rate [ Apical] Heart Rate [ 61 Brachial] Heart Rate [ Standing] Respiratory 22 24 Rate Blood Pressure [Activity] Blood Pressure 131/73 H 129/67 [Left Brachial artery] Blood Pressure [Right Brachial artery] Blood Pressure [Standing] O2 Saturation 99 0609/18/19 09/18/19 23:45 04:42 05:42 Temperature 36.7 C 36.7 C Heart Rate 76 Heart Rate [ Activity] Heart Rate [ 79 Apical] Heart Rate [ 84 Brachial] Heart Rate [ Standing] Respiratory 21 20 16 Rate Blood Pressure [Activity] Blood Pressure 126/66 [Left Brachial artery] Blood Pressure 146/81 H [Right Brachial artery] Blood Pressure [Standing] O2 Saturation 96 99 09/18/19 09/18/19 07:40 08:10 Temperature 36.6 C Heart Rate Heart Rate [ Activity] Heart Rate [ 53 L Apical] Heart Rate [ 84 Brachial] Heart Rate [ Standing] Respiratory 20 Rate Blood Pressure [Activity] Blood Pressure 120/53 L 129/69 [Left Brachial artery] Blood Pressure [Right Brachial artery] Blood Pressure [Standing] O2 Saturation 97 Oxygen O2 Source Nasal cannula Oxygen Flow Rate 3 I&O (Last 24 Hrs): Intake and Output Totals x24h 09/16/19 09/17/19 09/18/19 23:59 23:59 23:59 Intake Total 2475.829 1495 100 Output Total 375 550 250 Balance 2100.829 945 -150 General: Alert HEENT: Atraumatic, EOMI Neck: Supple Neuro: Alert, Non Focal Cardiovascular: Regular rate, No murmurs Respiratory: No respiratory distress, Other Abdomen: Soft (Poor air movement, no crackles today.) Extremities: No edema - Results Results: Laboratory Results WBC 11.2 x10^3/uL (4.8-10.8) H 09/18/19 05:15 RBC 2.82 10^6/uL (4.20-5.40) L 09/18/19 05:15 Hgb 9.8 g/dL (12.0-16.0) L 09/18/19 05:15 Hct 31.4 % (37.0-47.0) L 09/18/19 05:15 MCV 111.3 fL (81.0-99.0) H 09/18/19 05:15 MCH 34.8 pg (27.0-31.0) H 09/18/19 05:15 MCHC 31.2 g/dL (32.0-36.0) L 09/18/19 05:15 RDW 18.8 % (12.0-15.0) H 09/18/19 05:15 Plt Count 111 10^3/uL (130-450) L 09/18/19 05:15 MPV 10.6 fL (7.9-10.8) 09/18/19 05:15 Neut # (Auto) 9.1 10^3/uL (1.5-6.6) H 09/18/19 05:15 Lymph # (Auto) 1.0 10^3/uL (1.5-3.5) L 09/18/19 05:15 Glynn # (Auto) 0.6 10^3/uL (0.0-1.0) 09/18/19 05:15 Eos # (Auto) 0.1 10^3/uL (0.0-0.7) 09/18/19 05:15 Baso # (Auto) 0.0 10^3/uL (0.0-0.1) 09/18/19 05:15 Absolute Nucleated RBC 0.03 x10^3/uL 09/18/19 05:15 Total Counted 100 09/15/19 04:20 Band Neuts % (Manual) 2 % (0-10) 09/15/19 04:20 Abnorm Lymph % (Manual) 0 % 09/15/19 04:20 Metamyelocytes % 1 % (-0) H 09/14/19 06:10 Myelocytes % 1 % (-0) H 09/15/19 04:20 Nucleated RBC % 0.3 /100WBC 09/18/19 05:15 Neutrophils # (Manual) 11.3 10^3/uL (1.5-6.6) H 09/15/19 04:20 Lymphocytes # (Manual) 1.8 10^3/uL (1.5-3.5) 09/15/19 04:20 Monocytes # (Manual) 0.3 10^3/uL (0.0-1.0) 09/15/19 04:20 Eosinophils # (Manual) 0.0 10^3/uL (0-0.7) 09/15/19 04:20 Basophils # (Manual) 0.0 10^3/uL (0-0.1) 09/15/19 04:20 Differential Comment MANUAL DIFFERENTIAL 09/15/19 04:20 Manual Slide Review Indicated 09/18/19 05:15 WBC Morphology NORMAL APPEARANCE (NORMAL) 09/18/19 05:15 Platelet Estimate DECREASED (<130,000) (NORMAL) 09/18/19 05:15 Platelet Morphology NORMAL APPEARANCE (NORMAL) 09/18/19 05:15 RBC Morph Micro Appear 2+ MACROCYTOSIS (NORMAL) 09/18/19 05:15 ESR 19 mm/Hr (0-30) 09/12/19 21:02 Sodium 143 mmol/L (135-145) 09/18/19 05:15 Potassium 3.6 mmol/L (3.5-5.0) 09/18/19 05:15 Chloride 110 mmol/L (101-111) 09/18/19 05:15 Carbon Dioxide 26 mmol/L (21-32) 09/18/19 05:15 Anion Gap 7.0 (6-13) 09/18/19 05:15 BUN 8 mg/dL (6-20) 09/18/19 05:15 Creatinine 0.4 mg/dL (0.4-1.0) 09/18/19 05:15 Estimated GFR (MDRD) 156 (>89) 09/18/19 05:15 Glucose 102 mg/dL (70-100) H 09/18/19 05:15 Lactic Acid 1.7 mmol/L (0.5-2.2) 09/12/19 21:02 Calcium 7.7 mg/dL (8.5-10.3) L 09/18/19 05:15 Phosphorus 1.6 mg/dL (2.5-4.6) L 09/17/19 05:25 Magnesium 1.7 mg/dL (1.7-2.8) 09/17/19 05:25 Total Bilirubin 0.9 mg/dL (0.2-1.0) 09/12/19 21:02 AST 18 IU/L (10-42) 09/12/19 21:02 ALT 17 IU/L (10-60) 09/12/19 21:02 Alkaline Phosphatase 116 IU/L (42-121) 09/12/19 21:02 Total Creatine Kinase 14 IU/L (22-269) L 09/16/19 05:20 CK-MB (CK-2) 3.0 ng/mL (0.6-6.3) 09/12/19 21:02 Troponin I High Sens 24.8 ng/L (2.3-14.8) H* 09/15/19 16:14 C-Reactive Protein 2.9 mg/dL (0-1.0) H 09/12/19 21:02 B-Natriuretic Peptide 245 pg/mL (5-100) H 09/15/19 16:14 Total Protein 6.5 g/dL (6.7-8.2) L 09/12/19 21:02 Albumin 3.0 g/dL (3.2-5.5) L 09/12/19 21:02 Globulin 3.5 g/dL (2.1-4.2) 09/12/19 21:02 Albumin/Globulin Ratio 0.9 (1.0-2.2) L 09/12/19 21:02 Lipase 43 U/L (22-51) 09/12/19 21:02 TSH 2.78 uIU/mL (0.34-5.60) 09/12/19 21:02 Urine Color YELLOW 09/12/19 22:15 Urine Clarity CLEAR (CLEAR) 09/12/19 22:15 Urine pH 6.5 PH (5.0-7.5) 09/12/19 22:15 Ur Specific [place] 1.020 (1.002-1.030) 09/12/19 22:15 Urine Protein TRACE mg/dL (NEGATIVE) 09/12/19 22:15 Urine Glucose (UA) NEGATIVE mg/dL (NEGATIVE) 09/12/19 22:15 Urine Ketones 15 mg/dL (NEGATIVE) H 09/12/19 22:15 Urine Occult Blood NEGATIVE (NEGATIVE) 09/12/19 22:15 Urine Nitrite NEGATIVE (NEGATIVE) 09/12/19 22:15 Urine Bilirubin NEGATIVE (NEGATIVE) 09/12/19 22:15 Urine Urobilinogen 0.2 (NORMAL) E.U./dL (NORMAL) 09/12/19 22:15 Ur Leukocyte Esterase NEGATIVE (NEGATIVE) 09/12/19 22:15 Ur Microscopic Review NOT INDICATED 09/12/19 22:15 Urine Culture Comments NOT INDICATED 09/12/19 22:15 Coronavirus (PCR) NEGATIVE 09/13/19 08:15 - Procedures Procedures: Procedures REPLACEMENT OF LEFT LENS WITH SYNTH SUB, PERC APPROACH (02/02/19) REPLACEMENT OF RIGHT LENS WITH SYNTH SUB, PERC APPROACH (12/01/18) Sepsis Event Note (H) - Evaluation Current Stage of Sepsis: Ruled out
[2019-09-18 08:56] LABS: MAGNESIUM 1.7 mg/dL (1.7-2.8)
[2019-09-18] MEDS: D5NS W/20 MEQ KCL 1,000 ML IV SCH (12:15)
[2019-09-18] MEDS: diltiaZEM CD 120 MG CAPSULE PO SCH (12:24)
--- NOTE | 2019-09-18 14:39 | CONSULTATION NOTE ---
Palliative Care Consultation - Referral Referring Provider: Dr. Katty Smith Time of Visit: [id number] Referral setting: Hospitalized patient Referral Reason: Pulmonary Fibrosis/Advanced Care Planning - Information Sources Records reviewed: Previous records reviewed History/Review of Systems obtained from: Patient, Nursing, Other (hospitalist) Exam limitations: No limitations - History of Present Illness Brief History of Present Illness: This is a maeve 74-year-old female who was seen and evaluated today while inpatient for initial palliative care consultation due to longstanding history of pulmonary fibrosis. She is presently admitted for her chronic respiratory failure with hypoxia and was also noted to have new diagnosis of pneumonia. The patient reports to difficulty breathing which resulted in her contacting emergency medical personnel and resulted in this admission. Of note she has been seen in the emergency department twice for symptoms of shortness of breath and was treated for pneumonia at the end of July and was on a prednisone taper. The patient reports that she is chronically on oxygen at home on 3 L via nasal cannula and was diagnosed with this approximately 3 years ago. Her shoe fitter is Dr. Engel at the [facility]. She reports a baseline cough that is nonproductive. Since initiating antibiotic therapy during this hospitalization she feels "no better and no worse." In the last month she reports that she injured her back approximately 4 weeks ago when she was bending down at the fridge and was unable to get up. Since that time she has had decreased strength and no appetite. She reports to pain in the middle of her back that does not radiate. At worst it ca n rate up to an 8-9 out of 10. At best to the pain in the middle of her back will be a 4 or 5 out of 10. She is presently on routine Toradol and morphine which she finds effective. She reports to routine bowel movements. She denies any numbness or tingling to the lower extremities.She denies coughing with meals. She denies nausea or vomiting. She reports to depressive symptoms as well as textured not being a concern regarding her appetite. Staff provided her with tacos which was her request however, when her delivered this she was no longer interested.She will sip on the Ensure but otherwise is is not fully consuming the entire bottle. She is presently on IV fluids. Today, the patient is seen sitting up in her hospital bed with nasal cannula in place without any visible distress. She has lined up on her bedside table her dissolved MiraLAX, open Ensure, and Strahl and a mendoza kate. She presently denies acute pain. Medical/Surgical History - Past Medical History Cardiovascular: reports: Hypertension, Other Respiratory: reports: Other Neuro: None, Other Neuro: reports: None Endocrine/Autoimmune: reports: None GI: reports: None : reports: None HEENT: reports: None Psych: reports: None Musculoskeletal: reports: Chronic back pain Derm: reports: Psoriasis MRSA Hx?: No Other Past Medical History: Pt uses home O2 as needed. - Past Surgical History General: reports: Appendectomy Ortho: reports: Other /SURGERY MANAGER: reports: Hysterectomy HEENT: reports: Tonsil/Adenoidectomy Social History - Living Situation Living arrangement: At home Living Situation: With spouse/s.o. Support System: At baseline the patient resides at home with her of 40 years. They each have a son from previous relationships. The patient's son, Jihan, lives in [place] and visits on a weekly basis. 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 The patient and her spouse relocated to [place] to be closer to her friend over the last 3 years. She reports increasing weakness over the last 3 years. The patient was born in [place] and both her and her father are Citizen Of [place]. Family History - Family History Family History: Mother: , Father: Family History Comment/Other: The patient's mother was [place] and when the patient was age 8 of unknown causes. The patient's father worked with asbestos in the shipyards and at age 86 from pneumonia. The patient has siblings which she is estranged from. No other known history of lung disease. Medications/Allergies - Medications Active Medication List: Active Medications Acetaminophen (Tylenol) 650 mg PO Q4HR PRN PRN Reason: Pain 1 to 4 Last Admin: 09/17/19 09:18 Dose: 650 mg Documented by: Benzonatate (Tessalon) 100 mg PO TID PRN PRN Reason: Cough Last Admin: 09/17/19 03:50 Dose: 100 mg Documented by: Calcium Carbonate/Glycine (Tums) 500 mg PO BID [facility] Last Admin: 09/18/19 08:25 Dose: 500 mg Documented by: Cholecalciferol (Vitamin D3) 800 unit PO DAILY [facility] Last Admin: 09/18/19 08:25 Dose: 800 unit Documented by: Diltiazem HCl (Cardizem Cd) 120 mg PO DAILY [facility] Last Admin: 09/18/19 12:24 Dose: 120 mg Documented by: Enoxaparin Sodium (Lovenox) 40 mg SUBQ DAILY [facility] Last Admin: 09/18/19 08:25 Dose: 40 mg Documented by: Guaifenesin (Mucinex) 600 mg PO DAILY [facility] Last Admin: 09/18/19 08:25 Dose: 600 mg Documented by: Potassium Chloride/Dextrose/Sod Cl () 1,000 mls @ 60 mls/hr IV .[id number] [facility] Last Admin: 09/18/19 12:15 Dose: 60 mls/hr Documented by: Piperacillin Sod/Tazobactam (Sod 4.5 gm/ Sodium Chloride) 100 mls @ 25 mls/hr IV Q8H [facility] Last Admin: 09/18/19 12:14 Dose: 25 mls/hr Documented by: Ketorolac Tromethamine (Toradol Inj (15mg)) 15 mg IVP Q6HR PRN PRN Reason: PAIN Stop: 09/22/19 08:06 Last Admin: 09/18/19 01:47 Dose: 15 mg Documented by: Levalbuterol HCl (Xopenex) 1.25 mg INH Q4H PRN PRN Reason: Shortness of Air/Wheezing Last Admin: 09/18/19 05:41 Dose: 1.25 mg Documented by: Mineral Oil (Cavilon) 1 applic TOP PRN PRN PRN Reason: Skin Care Last Admin: 09/16/19 14:28 Dose: 1 applic Documented by: Mirtazapine (Remeron) 7.5 mg PO QPM [facility] Montelukast Sodium (Singulair) 10 mg PO QPM [facility] Last Admin: 09/17/19 20:26 Dose: 10 mg Documented by: Morphine Sulfate (Morphine (Carpuject)) 1 mg IVP Q6HR PRN PRN Reason: Dyspnea Last Admin: 09/18/19 12:25 Dose: 1 mg Documented by: Multivitamins/Minerals (Theragran M) 1 tab PO DAILYWM [facility] Last Admin: 09/18/19 08:26 Dose: 1 tab Documented by: Ondansetron HCl (Zofran Inj) 4 mg IVP Q6HR PRN PRN Reason: Nausea / Vomiting Last Admin: 09/18/19 08:30 Dose: 4 mg Documented by: Polyethylene Glycol (Miralax) 17 gm PO DAILY [facility] Last Admin: 09/18/19 08:25 Dose: 17 gm Documented by: Prednisone (Deltasone) 10 mg PO DAILYWM [facility] Last Admin: 09/18/19 08:25 Dose: 10 mg Documented by: Sodium Chloride (Normal Saline Flush 0.9%) 10 ml IVP PRN PRN PRN Reason: NEEDED PER PROVIDER ORDERS Last Admin: 09/16/19 09:04 Dose: 10 ml Documented by: Sodium Chloride (Normal Saline Flush 0.9%) 10 ml IVP 0100,0900,1700 [facility] Last Admin: 09/18/19 08:26 Dose: Not Given Documented by: Sodium Phosphate (K-Phos Neutral) 250 mg PO TIDWM [facility] Last Admin: 09/18/19 12:14 Dose: 250 mg Documented by: ALPRAZolam [Alprazolam] 0.5 mg PO TID PRN 09/13/19 Albuterol Sulfate [Albuterol Sulfate Hfa] 2 puffs INH QID PRN 09/13/19 Baclofen [Lioresal] 10 mg PO BID 09/13/19 Furosemide [Lasix] 20 mg PO DAILY 09/13/19 Losartan Potassium [Cozaar] 100 mg PO DAILY 09/13/19 Omeprazole 20 mg PO DAILY 09/13/19 Ondansetron Odt [Zofran Odt] 4 mg PO Q6H PRN 09/13/19 Potassium Chloride 10 meq PO DAILY 09/13/19 dilTIAZem HCl [Diltiazem 24Hr ER (LA)] 360 mg PO DAILY 09/13/19 predniSONE [Deltasone] 10 mg PO DAILY 09/13/19 traMADol [Ultram] 50 mg PO Q8HR PRN 09/13/19 - Allergies Allergies/Adverse Reactions: Allergies Allergy/AdvReac Type Severity Reaction Status Date / Time codeine Allergy Nausea Verified 07/28/19 15:25 Review of Systems - Constitutional Constitutional: reports: Fatigue. denies: Fever - Ears, Nose & Throat Ears, Nose & Throat: denies: Dry mouth - Cardiovascular Cardiovascular: reports: Edema. denies: Palpitations, Chest pain - Respiratory Respiratory: reports: Cough, SOB with exertion - Gastrointestinal Gastrointestinal: reports: Poor appetite. denies: Abdominal pain, Constipation, Nausea, Vomiting - Genitourinary Genitourinary: reports: Other (presently has pure wick in place). denies: Dysuria - Musculoskeletal Musculoskeletal: reports: Back pain, Assistive devices, Transfer issues, Other (Has a fear of getting up due to risk of fall.) - Neurological Neurological: reports: General weakness, Other (Chronic dizziness with history of BPPV). denies: Memory problems - Psychiatric Psychiatric: reports: Depression - Endocrine Endocrine: denies: Diabetes type 2 - Hematologic/Lymphatic Hematologic/Lymphatic: reports: Bruising - All Other Systems All Other Systems: reports: Reviewed and negative Physical Exam - Vital Signs Vital Signs: Vital Signs x48h Temp Pulse Pulse Pulse Pulse Pulse Resp 09/18/19 12:18 84 09/18/19 11:36 36.9 C 81 20 09/18/19 10:32 120 H 135 H 88 09/18/19 08:10 84 09/18/19 07:40 36.6 C 53 L 20 BP BP BP BP Pulse Ox 09/18/19 12:18 126/74 09/18/19 11:36 127/70 98 09/18/19 10:32 89/60 L 106/68 85/70 L 09/18/19 08:10 129/69 09/18/19 07:40 120/53 L 97 - Physical Exam General Appearance: positive: No acute distress, Alert, Other (frail, petite female sitting up in bed with NC in place) Eyes Bilateral: positive: Normal inspection ENT: negative: Hearing loss Neck: positive: Trachea midline Cardiovascular: positive: Regular rate & rhythm. negative: Systolic murmur Respiratory: positive: No respiratory distress, Other (faint crackles BLL without wheezing, supplemental oxygen in place, pausing intermittently for breath during speaking) Abdomen: positive: Non-tender, Soft, Nml bowel sounds. negative: Guarding Skin: positive: Bruising (LUE), Other (PIV to right forearm) Extremities: positive: Pedal edema (+1 bilateral edema below the ankles), Other (+kyphoscoliosis) Neurologic/Psychiatric: positive: Oriented x3, Weakness, Depressed mood/affect Palliative Care - POLST POLST Status: DNR Pain: Pain improved (noted to middle of her back after bending over 1 month ago. See HPI for further details.) Nausea: None Anorexia: Severe (7-10) Dyspnea: Moderate (4-6) Depression: Mild (1-3) Sleep: Variable sleep pattern Constipation: No, Opoid induced, Managed Performance Status: Baseline the patient ambulates with a walker. - Palliative Care Discussion: The patient has had a diagnosis of pulmonary fibrosis for approximately 3 years. She reports that her father worked with asbestos due to working in a shipyard and he had "lung problems as well." Future she feels as if she has had lung problems "her whole life." She is chronically on oxygen supplementation on and off for the last 3 years at 3 L via nasal cannula. She is followed by ou [facility] shoe fitter. In the last 6 weeks the patient has presented to the emergency department due to shortness of breath. During this admission she has been diagnosed with pneumonia. Of note in the last month she has had increasing weakness with a reduction in oral intake with some underlying depressive symptoms. When exploring this further the patient also reports that she is having difficulty sleeping at night. She is open to trialing mirtazapine 7.5 mg in the evening for appetite stimulation, mood, and sleep. She does however state that she is "fed up with pills" but is open to a trial. The patient is aware that she needs to eat in order to gain her strength however, she is not interested in food. Attempted to explore artificial nutrition and hydration via tube but patient did not wish to explore this further at this time. Ultimately when reviewing the diagnosis of pulmonary fibrosis she does not seem to grasp the severity of her prognosis and this will continue to need to be explored further. At the present time the patient's ultimate goal is to get better and get her strength back and she is willing to go to a skilled facility in order to do so. Results - Lab Results Fish Bones: 09/18/19 05:15 09/18/19 05:15 Lab and Imaging Results: Lab Results x24hrs 09/18/19 09/18/19 Range/Units 05:15 05:15 WBC 11.2 H (4.8-10.8) x10^3/uL RBC 2.82 L (4.20-5.40) 10^6/uL Hgb 9.8 L (12.0-16.0) g/dL Hct 31.4 L (37.0-47.0) % MCV 111.3 H (81.0-99.0) fL MCH 34.8 H (27.0-31.0) pg MCHC 31.2 L (32.0-36.0) g/dL RDW 18.8 H (12.0-15.0) % Plt Count 111 L (130-450) 10^3/uL MPV 10.6 (7.9-10.8) fL Neut # (Auto) 9.1 H (1.5-6.6) 10^3/uL Lymph # (Auto) 1.0 L (1.5-3.5) 10^3/uL [place] # (Auto) 0.6 (0.0-1.0) 10^3/uL Eos # (Auto) 0.1 (0.0-0.7) 10^3/uL Baso # (Auto) 0.0 (0.0-0.1) 10^3/uL Absolute Nucleated RBC 0.03 x10^3/uL Nucleated RBC % 0.3 /100WBC Manual Slide Review Indicated WBC Morphology NORMAL APPEARANCE (NORMAL) Platelet Estimate DECREASED (<130,000) (NORMAL) Platelet Morphology NORMAL APPEARANCE (NORMAL) RBC Morph Micro Appear 2+ MACROCYTOSIS (NORMAL) Sodium 143 (135-145) mmol/L Potassium 3.6 (3.5-5.0) mmol/L Chloride 110 (101-111) mmol/L Carbon Dioxide 26 (21-32) mmol/L Anion Gap 7.0 (6-13) BUN 8 (6-20) mg/dL Creatinine 0.4 (0.4-1.0) mg/dL Estimated GFR (MDRD) 156 (>89) Glucose 102 H (70-100) mg/dL Calcium 7.7 L (8.5-10.3) mg/dL Magnesium 1.7 (1.7-2.8) mg/dL Impression and Recommendations - Palliative Care Impression: This is a maeve 74-year-old woman with a history of pulmonary fibrosis on chronic oxygen supplementation of 3 L at baseline who presented to the emergency department with worsening shortness of breath, mid back pain, and a new diagnosis of pneumonia. She has had in increasing weakness with a lack of oral intake over the last month. Patient reports some underlying depressive symptoms and would benefit from treatment and is open to a trial of mirtazapine. Palliative care to continue to explore goals of care, build rapport, and provide anticipatory guidance. Recommendations/Counseling Done: 1. Anorexia with protein calorie malnutrition. Patient does not demonstrate any signs or symptoms of dysphasia. Her lack of appetite has been ongoing for several weeks per her report. There is no underlying texture component to her lack of appetite but depression does seem to be complaining apart. Strongly encouraged the patient to consume her Ensure supplementation for calories as well as maintaining her fluid intake. Began to explore artificial nutrition via tube feeding but declined exploring this further at this time. Presently on IV fluids. In agreement to trial mirtazapine 7.5 mg nightly with benefits and side effects reviewed and aware it may take at least 2 weeks to note effects. 2. Depression due to chronic comorbidity. Patient reporting underlying depressive symptoms due to increased fatigue, generalized weakness and lack of strength. Supportive listening provided. In agreement to trial mirtazapine 7.5 mg nightly for appetite stimulation, sleep adjunct as well as for management of depressive symptoms. We will continue to monitor. Hospitalist made aware of recommendations. 3. Pulmonary fibrosis. Patient does not appear to have insight at the present time in regards to the severity of her underlying diagnosis of pulmonary fibrosis. She is followed outpatient by home immunology.She is presently on daily prednisone for her underlying pulmonary fibrosis. Continue to explore g oals of care and advance care planning. 4. Physical deconditioning. Multifactorial due to protein calorie malnutrition, fatigue, and underlying pulmonary fibrosis. Plan at the present time is for t he patient to be discharged to a longterm facility for physical therapy services for strengthening which is the patient's ultimate goal. Message left for patient's spouse, Edgar Palmer at [phone] To coordinate a plan of care meeting on 09/19/2019. Awaiting return call. Time Spent: Total time spent 40 minutes with greater than 50% of this spent in counseling and coordination of care with patient, nursing and hospitalist; review of palliative philosophy; review of symptom management and anticipatory guidance. Disclaimer: The chart note was formulated using voice recognition technology and unfortunately sound alike errors may occur.
[2019-09-18] MEDS: BENZONATATE 100 MG CAPSULE PO PRN (16:47)
[2019-09-18] MEDS: SODIUM CHLORIDE FLUSH 0.9% 10 ML SYRINGE IVP PRN (16:48)
[2019-09-18] MEDS: MONTELUKAST 10 MG TABLET PO SCH (20:17)
[2019-09-18] MEDS: ACETAMINOPHEN 325 MG TABLET PO PRN (20:17)
[2019-09-18] MEDS: MIRTAZAPINE 15 MG TABLET PO SCH (20:17)
[2019-09-19] MEDS: MORPHINE 2 MG/ML CARPUJECT IVP PRN ×2 (00:39→17:23)
[2019-09-19] MEDS: SODIUM CHLORIDE FLUSH 0.9% 10 ML SYRINGE IVP SCH ×3 (00:40→17:23)
[2019-09-19] MEDS: KETOROLAC 15 MG/ML VIAL IVP PRN ×2 (03:13→14:14)
[2019-09-19] MEDS: D5NS W/20 MEQ KCL 1,000 ML IV SCH ×2 (03:13→19:39)
[2019-09-19] MEDS: PIPERACILLIN/TAZOBACTAM 4.5 GM in SODIUM CHLORIDE 0.9% MINIBAG 100 ML IV SCH ×3 (04:57→21:16)
[2019-09-19 05:45] LABS: BASOPHILS % (AUTO) 0.3 %; EOSINOPHILS # (AUTO) 0.1 10^3/uL (0.0-0.7); HGB - HEMOGLOBIN 9.7 g/dL (12.0-16.0); LYMPHOCYTES # (AUTO) 1.2 10^3/uL (1.5-3.5); LYMPHOCYTES % (AUTO) 11.8 %; MEAN CORPUSCULAR VOLUME 109.9 fL (81.0-99.0); MEAN PLATELET VOLUME 10.2 fL (7.9-10.8); MONOCYTES # (AUTO) 0.6 10^3/uL (0.0-1.0); MONOCYTES % (AUTO) 6.5 %; NEUTROPHILS # (AUTO) 7.6 10^3/uL (1.5-6.6); NEUTROPHILS % (AUTO) 77.6 %; PLT - PLATELET COUNT 128 10^3/uL (130-450); RED BLOOD COUNT 2.94 10^6/uL (4.20-5.40); RED CELL DISTRIBUTION WIDTH 18.6 % (12.0-15.0); WHITE BLOOD COUNT 9.8 x10^3/uL (4.8-10.8)
[2019-09-19 06:03] LABS: CALCIUM 7.8 mg/dL (8.5-10.3); CREATININE 0.4 mg/dL (0.4-1.0)
[2019-09-19 06:26] LABS: FOLATE 7.77 ng/mL (5.90 - >24.8)
[2019-09-19] MEDS: ACETAMINOPHEN 325 MG TABLET PO PRN (06:59)
[2019-09-19] MEDS: NEUTRA-PHOS 250 MG TABLET PO SCH ×3 (09:06→17:23)
[2019-09-19] MEDS: CHOLECALCIFEROL 400 UNIT TABLET PO SCH (09:06)
[2019-09-19] MEDS: POTASSIUM CHLORIDE 20 MEQ TABLET PO SCH ×2 (09:07→21:16)
[2019-09-19] MEDS: diltiaZEM CD 120 MG CAPSULE PO SCH (09:07)
[2019-09-19] MEDS: guaiFENesin 600 MG TABLET PO SCH (09:07)
[2019-09-19] MEDS: predniSONE 10 MG TABLET PO SCH (09:07)
[2019-09-19] MEDS: MULTIVITAMIN W/MINERALS TABLET PO SCH (09:07)
[2019-09-19] MEDS: polyethylene glycoL 3350 17 GM PACKET PO SCH (09:08)
[2019-09-19] MEDS: ENOXAPARIN 40 MG/0.4 ML SYRINGE SUBQ SCH (09:08)
[2019-09-19] MEDS: CALCIUM CARBONATE CHEW 500 MG TABLET PO SCH ×2 (10:56→21:16)
--- NOTE | 2019-09-19 12:47 | PROVIDER PROGRESS NOTE ---
Subjective - Prog Note Date Prog Note Date: 09/19/19 Prog Note Time: 12:47 - Subjective Pt reports feeling: Worse Subjective: today is a "bad day". Just so fatigued and her sob is worse. No energy to work with PT and is sad bc she knows she has to work w PT to get better. in the room. [place]. We had a very long chat. Current Medications - Current Medications Current Medications: Active Medications Acetaminophen (Tylenol) 650 mg PO Q4HR PRN PRN Reason: Pain 1 to 4 Last Admin: 09/19/19 06:59 Dose: 650 mg Documented by: Benzonatate (Tessalon) 100 mg PO TID PRN PRN Reason: Cough Last Admin: 09/18/19 16:47 Dose: 100 mg Documented by: Calcium Carbonate/Glycine (Tums) 500 mg PO BID [facility] Last Admin: 09/19/19 10:56 Dose: 500 mg Documented by: Cholecalciferol (Vitamin D3) 800 unit PO DAILY [facility] Last Admin: 09/19/19 09:06 Dose: 800 unit Documented by: Diltiazem HCl (Cardizem Cd) 120 mg PO DAILY [facility] Last Admin: 09/19/19 09:07 Dose: 120 mg Documented by: Enoxaparin Sodium (Lovenox) 40 mg SUBQ DAILY [facility] Last Admin: 09/19/19 09:08 Dose: 40 mg Documented by: Guaifenesin (Mucinex) 600 mg PO DAILY [facility] Last Admin: 09/19/19 09:07 Dose: 600 mg Documented by: Potassium Chloride/Dextrose/Sod Cl () 1,000 mls @ 60 mls/hr IV .[id number] [facility] Last Admin: 09/19/19 03:13 Dose: 60 mls/hr Documented by: Piperacillin Sod/Tazobactam (Sod 4.5 gm/ Sodium Chloride) 100 mls @ 25 mls/hr IV Q8H [facility] Last Infusion: 09/19/19 09:15 Dose: Infused Documented by: Ketorolac Tromethamine (Toradol Inj (15mg)) 15 mg IVP Q6HR PRN PRN Reason: PAIN Stop: 09/22/19 08:06 Last Admin: 09/19/19 03:13 Dose: 15 mg Documented by: Levalbuterol HCl (Xopenex) 1.25 mg INH Q4H PRN PRN Reason: Shortness of Air/Wheezing Last Admin: 09/18/19 05:41 Dose: 1.25 mg Documented by: Mineral Oil (Cavilon) 1 applic TOP PRN PRN PRN Reason: Skin Care Last Admin: 09/16/19 14:28 Dose: 1 applic Documented by: Mirtazapine (Remeron) 7.5 mg PO QPM [facility] Last Admin: 09/18/19 20:17 Dose: 7.5 mg Documented by: Montelukast Sodium (Singulair) 10 mg PO QPM [facility] Last Admin: 09/18/19 20:17 Dose: 10 mg Documented by: Morphine Sulfate (Morphine (Carpuject)) 1 mg IVP Q6HR PRN PRN Reason: Dyspnea Last Admin: 09/19/19 00:39 Dose: 1 mg Documented by: Multivitamins/Minerals (Theragran M) 1 tab PO DAILYWM [facility] Last Admin: 09/19/19 09:07 Dose: 1 tab Documented by: Ondansetron HCl (Zofran Inj) 4 mg IVP Q6HR PRN PRN Reason: Nausea / Vomiting Last Admin: 09/18/19 16:38 Dose: 4 mg Documented by: Polyethylene Glycol (Miralax) 17 gm PO DAILY [facility] Last Admin: 09/19/19 09:08 Dose: Not Given Documented by: Potassium Chloride (K-Dur) 40 meq PO BID [facility] Stop: 09/19/19 21:01 Last Admin: 09/19/19 09:07 Dose: 40 meq Documented by: Prednisone (Deltasone) 10 mg PO DAILYWM [facility] Last Admin: 09/19/19 09:07 Dose: 10 mg Documented by: Sodium Chloride (Normal Saline Flush 0.9%) 10 ml IVP PRN PRN PRN Reason: NEEDED PER PROVIDER ORDERS Last Admin: 09/18/19 16:48 Dose: 10 ml Documented by: Sodium Chloride (Normal Saline Flush 0.9%) 10 ml IVP 0100,0900,1700 [facility] Last Admin: 09/19/19 09:09 Dose: Not Given Documented by: Sodium Phosphate (K-Phos Neutral) 250 mg PO TIDWM [facility] Last Admin: 09/19/19 09:06 Dose: 250 mg Documented by: ALPRAZolam [Alprazolam] 0.5 mg PO TID PRN 09/13/19 Albuterol Sulfate [Albuterol Sulfate Hfa] 2 puffs INH QID PRN 09/13/19 Baclofen [Lioresal] 10 mg PO BID 09/13/19 Furosemide [Lasix] 20 mg PO DAILY 09/13/19 Losartan Potassium [Cozaar] 100 mg PO DAILY 09/13/19 Omeprazole 20 mg PO DAILY 09/13/19 Ondansetron Odt [Zofran Odt] 4 mg PO Q6H PRN 09/13/19 Potassium Chloride 10 meq PO DAILY 09/13/19 dilTIAZem HCl [Diltiazem 24Hr ER (LA)] 360 mg PO DAILY 09/13/19 predniSONE [Deltasone] 10 mg PO DAILY 09/13/19 traMADol [Ultram] 50 mg PO Q8HR PRN 09/13/19 Objective - Vital Signs/Intake & Output Reviewed Vital Signs: Yes Vital Signs: Vital Signs x48h Temp Pulse Pulse Pulse Pulse Resp BP 09/19/19 11:22 36.4 C L 74 18 124/65 09/19/19 09:00 96 116 H 77 09/19/19 07:25 36.7 C 85 18 139/76 H BP BP BP Pulse Ox 09/19/19 11:22 93 09/19/19 09:00 151/89 H 143/108 H 135/68 H 09/19/19 07:25 95 Intake & Output: Intake & Output 09/16/19 09/17/19 09/18/19 09/19/19 23:59 23:59 23:59 23:59 Intake Total 2475.829 1495 1793 493 Output Total 375 550 550 100 Balance 2100.038 629 8107 393 - Objective General Appearance: positive: Moderate distress (from tachypnea and casillas. can barely speak today.), Other (listless, very weak elderly female with cushinoid appearance) Eyes Bilateral: positive: PERRL, EOMI ENT: positive: Pharynx nml Neck: positive: No JVD. negative: Stiff neck, Carotid bruit Respiratory: positive: Chest non-tender, Wheezes, Other (increased effort to breath when I sit her up or she speaks for more than a minute). negative: Rales, Rhonchi Cardiovascular: positive: Regular rate & rhythm, Systolic murmur. negative: Gallop/S4, Friction rub Abdomen: positive: Non-tender, No organomegaly, Nml bowel sounds, No distention Skin: positive: Warm, Dry, Pallor, Other (cheeks with violaceous superficial spider veins) Extremities: positive: Full ROM, Pedal edema Neurologic/Psychiatric: positive: Oriented x3, CN's nml (2-12), Other (memory is impaired even thought A&O x 3). negative: Motor nml (severe diffuse weakness) - Lab Results Fish Bones: 09/19/19 05:30 09/19/19 05:30 Other Labs: Lab Results x24hrs 09/19/19 09/19/19 09/19/19 Range/Units 05:30 05:30 05:30 WBC (4.8-10.8) x10^3/uL RBC (4.20-5.40) 10^6/uL Hgb (12.0-16.0) g/dL Hct (37.0-47.0) % MCV (81.0-99.0) fL MCH (27.0-31.0) pg MCHC (32.0-36.0) g/dL RDW (12.0-15.0) % Plt Count (130-450) 10^3/uL MPV (7.9-10.8) fL Neut # (Auto) (1.5-6.6) 10^3/uL Lymph # (Auto) (1.5-3.5) 10^3/uL [place] # (Auto) (0.0-1.0) 10^3/uL Eos # (Auto) (0.0-0.7) 10^3/uL Baso # (Auto) (0.0-0.1) 10^3/uL Absolute Nucleated RBC x10^3/uL Nucleated RBC % /100WBC Sodium 146 H (135-145) mmol/L Potassium 3.3 L (3.5-5.0) mmol/L Chloride 114 H (101-111) mmol/L Carbon Dioxide 26 (21-32) mmol/L Anion Gap 6.0 (6-13) BUN 8 (6-20) mg/dL Creatinine 0.4 (0.4-1.0) mg/dL Estimated GFR (MDRD) 156 (>89) Glucose 100 (70-100) mg/dL Calcium 7.8 L (8.5-10.3) mg/dL Magnesium 1.6 L (1.7-2.8) mg/dL Iron 64 (28-170) ug/dL TIBC 153 L (250-450) ug/dL % Saturation 42 (20-50) % Transferrin 109 L (192-382) mg/dL Vitamin B12 285 (180-914) pg/mL Folate 7.77 (5.90 - >24.8) ng/mL Coronavirus (PCR) 09/19/19 09/18/19 Range/Units 05:30 11:15 WBC 9.8 (4.8-10.8) x10^3/uL RBC 2.94 L (4.20-5.40) 10^6/uL Hgb 9.7 L (12.0-16.0) g/dL Hct 32.3 L (37.0-47.0) % MCV 109.9 H (81.0-99.0) fL MCH 33.0 H (27.0-31.0) pg MCHC 30.0 L (32.0-36.0) g/dL RDW 18.6 H (12.0-15.0) % Plt Count 128 L (130-450) 10^3/uL MPV 10.2 (7.9-10.8) fL Neut # (Auto) 7.6 H (1.5-6.6) 10^3/uL Lymph # (Auto) 1.2 L (1.5-3.5) 10^3/uL [place] # (Auto) 0.6 (0.0-1.0) 10^3/uL Eos # (Auto) 0.1 (0.0-0.7) 10^3/uL Baso # (Auto) 0.0 (0.0-0.1) 10^3/uL Absolute Nucleated RBC 0.02 x10^3/uL Nucleated RBC % 0.2 /100WBC Sodium (135-145) mmol/L Potassium (3.5-5.0) mmol/L Chloride (101-111) mmol/L Carbon Dioxide (21-32) mmol/L Anion Gap (6-13) BUN (6-20) mg/dL Creatinine (0.4-1.0) mg/dL Estimated GFR (MDRD) (>89) Glucose (70-100) mg/dL Calcium (8.5-10.3) mg/dL Magnesium (1.7-2.8) mg/dL Iron (28-170) ug/dL TIBC (250-450) ug/dL % Saturation (20-50) % Transferrin (192-382) mg/dL Vitamin B12 (180-914) pg/mL Folate (5.90 - >24.8) ng/mL Coronavirus (PCR) NEGATIVE ABX Reporting Has patient been on IV antibiotics over the past 48 hours?: Yes Sepsis Event Note (H) - Evaluation Current Stage of Sepsis: Ruled out Assessment/Plan - Problem List (1) PSVT (paroxysmal supraventricular tachycardia) Impression: Assessment/Plan: She's had Vtach with last one yesterday at 0810. Later in the day 09/17, she had a run of PSVT at a rate of 200-250. It broke spontaneously. She did "feel fluttering" she said, but there was no chest pain or shortness of breath. Her blood pressure with this was low at 101/54. Atrial dysrhythmias are very common in patients with significant pulmonary disease. po Cardizem resumed, at a lower dose than she was on at home. The home Cardizem dose was not resumed since admission, due to low BP and orthostasis. Continue with IV fluids for her low blood pressure. Her other BP meds (Lisinopril and Lasix) have also been stopped. Her TSH was normal at 2.6, at admission. This morning, the manager telemetry felt she had Vtach again but I reviewed stip and I saw PSVT. No symptoms. Labs have been checked with troponin and Mg and they are stable. Not much more to do. (2) Chronic respiratory failure with hypoxia Assessment/Plan: At admission she needed supplemental O2 at 5 L, this is now come down to her usual 3 L continuous oxygen by nasal cannula. The underlying cause is pulmonary fibrosis. Her COVID test was neg, this admission. 09/17 was the first time she had a Palliative Care consult and Sera Merritt, [place], reported that the patient has very poor insight into the severity of her lung disease. Please see ACP discussion under separate note. (3) HCAP (healthcare-associated pneumonia) Assessment/Plan: She was admitted with weakness and dyspnea, into Observation status initially, t hen got continuously worse, weaker, nauseated and orthostasis was documented. She was then made an inpatient and started on IV fluids. She was also more short of breath 6 am and a repeat chest x-ray was done. Chest x-ray with slight interval progression of consolidation in the right lung. Superimposed on chronic interstitial pulmonary fibrosis. She is now being treated for HCAP. Blood cultures negative from 5 days ago and Gram stain of sputum from September 16 shows moderate white cells, epithelial cells, gram-positive cocci, gram-positive rods, gram-negative rods, yeast. Most likely this will not be able to be cultured. Reordered sputum not done yet. Continue IV Unasyn. Day #3 Continue to wait for sputum culture results to transition to oral antibiotics eventually. Continue Xopenex for nebs; Albuterol was stopped due to her tachycardia. Continue with pulmonary toilet with Mucinex. (4) Pulmonary fibrosis Assessment/Plan: She has been on continuous oxygen for several months now. She is also on daily oral prednisone. This is likely the reason for the elevated white blood count, in the 11-13K range. Palliative Care consult has been done for help with discussion about her goals, given her poor prognosis. She is a DNR, but she has poor understanding of her condition, per Sera Merritt NP, who met her for the first time 09/17. I did another conversation today and tried to educated her. (5) Chronic pain Assessment/Plan: She has relatively good pain control, even with the oral Tramadol stopped 2 days ago, which was adding to sedation (6) Orthostatic hypotension Assessment/Plan: She still has a "soft" blood pressure. Orthostatic VS checks are ordered to be done daily, but for the 2 days she refused the standing blood pressure check because she was "too weak and dizzy". Selected Entries 09/19/19 09:00 Blood Pressure 151/89 H [Sitting (After 1 Minute)] Blood Pressure 143/108 H [Standing ( After 1 Minute) ] Blood Pressure 135/68 H [Supine] Off of maintenance IVF (7) Profound fatigue Assessment/Plan: This is likely multifactorial: due to her orthostasis, dyspnea, deconditioning, anemia, chronic steroid use, back pain, severe kyphoscoliosis and her pulmonary fibrosis requiring nasal cannula plus supplemental oxygen. She does require SNF for PT rehab after discharge from here. We are obtaining authorization for that. (8) Dehydration resolved Assessment/Plan: When she was made an inpatient 09/15, she had marked skin tenting and dry oral mucosa. Oral intake is minimal. but IVF have been stopped for now. May resume if gets behind. Follow serum BMP intermittently. (9) Anemia Assessment/Plan: Her admission hemoglobin was 14.5, this has dropped to 13.5>> 11.9>> 10.5>> 9.8> >9.7 today Very likely hemo-dilutional since she is 7-8L (+) in fluid balance since admission, but she also likely could have nutritional deficiencies. But on checking iron and Vit B12 are okay. Laboratory Tests 09/19/19 09/19/19 05:30 05:30 Iron 64 TIBC 153 L % Saturation 42 Transferrin 109 L Vitamin B12 285 Folate 7.77 Follow CBC daily. (10) Severe protein-calorie malnutrition Assessment/Plan: Her diet was changed from regular diet to pured since she likes applesauce. Continue daily Ensure supplements. Will offer any nutrition that is appealing to her. She likes tacos, per discussion with her RN. Will allow tacos. but even when given those, she can't do more than 1-2 bites. Senior Water Resources Engineer to follow regarding her dietary wishes. (11) Decubitus ulcer of lower back, unstageable Assessment/Plan: She has 2 areas with bandages covering wounds. Wound consult was ordered through the [facility] over the weekend, and reported to be pending. But when I reviewed orders, it was not done and wound RN didn't get one. So I have ordered it thru [facility]. (12) Hypophosphatemia Assessment/Plan: She requires daily supplement for this. Follow serum phosphate level intermittent (13) Scoliosis/kyphoscoliosis Assessment/Plan: She has marked kyphoscoliosis which is also diminishing her thoracic capacity. (14) Osteoporosis Assessment/Plan: On calcium, vitamin D and phosphate replacement. (15) Hx of essential hypertension Assessment/Plan: She was on 3 antihypertensive pills at home before this hospitalization. They are all on hold because of her orthostasis and "soft blood pressures". Cardizem resumed 09/17, because of the PSVT. (16) Tachycardia resolved Assessment/Plan: She had a resting sinus tachycardia at admission, this was likely from volume depletion. With IV hydration this has already resolved. (17) Hypokalemia Assessment/Plan: had been on Lasix at home. K continues to be replaced. Today she was 3.3. Follow BMP intermittently. 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
--- NOTE | 2019-09-19 12:51 | ADVANCE CARE PLANNING NOTE ---
Advance Care Planning - Planning Encounter Date: 09/19/19 Time: 12:49 Purpose: Discuss her and her 's understanding of her disease with their expectations Parties in Attendance: [facility] Dr. Galindo Patient Decisional Capacity of the Patient: alert, occasionally forgetful and will gently correct her. Able to fully articulate her sadness about her life, her regrets about not being able to do anything for so long and what she wants down the road. Her supports that conversation and says this is what she has always said - Diagnosis for Encounter (1) Pulmonary fibrosis Summary: She has "always" been sick with her lungs since childhood. Her agrees. For as long as he is technical producer she is always had "sensitive lungs". She says that her father was a ship builder and mainly work on pipes. They wrapped the pipes and insulator which later turned out to be asbestos. He would come home with his close, and she was the one that did the washing and was exposed to his best dose that way. Her father finally of asbestosis and its complications. She is followed by pulmonology. Treated for her constant coughing, wheezing, and lung infections. Cardiopulmonary exertion became more more difficult over time. She finally became dependent on oxygen 3 years ago. In the last month she has had such a poor appetite, severe fatigue, and shortness of breath that she cannot dress herself, feed herself, or bathe herself. She is to be able to do all of that, albeit slowly, until then. - Encounter Subjective/Patient's Story: She was born in [place]. Immigrated to this country with part of her family. She met her of 40 years in an [place] bar in [place]. He was singing, and she approached him to saying her father's favorite song. They have been together ever since. Both of them have been once before. Both of them have a son from their previous marriages. Her played in a band. Has his own recording studio. 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 She also worked for the [email or web address]. They finally moved to [place] for 20 something years and then [facility] in 1982. [place] was in the midst of a drought. It was 98 degrees and so uncomfortable. He had come up to visit a [place] He fell in love with it, went back home, packed up the house, and they moved here. He continued working in a band. They have their own recording studio. 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 They moved into a little cottage home 3 years ago. And she is sad about the fact that she is never really been able to enjoy their beautiful little home. 22 years ago she picked up 1 of her grandchildren. She throughout her back and her back is never been the same since. She has episodic back pain. It really knocks her down. 3 years ago, just after they moved into their little cottage, she rolled over in bed and had agonizing upper back, neck, and shoulder pain. She has not been able to really take care of the home or garden since then. But she was always able to dress herself, feed herself and cook a bit for them. 2 to 3 months ago she stopped being able to cook because of her pain. While they both recognize that she has terrible lung disease, they feel that the focus of her main discomfort is her pain, not her lungs. A year ago, he came home to find her significantly debilitated because of "a choking fit". They seem to be describing aspiration and then a subsequent aspiration pneumonia. He quit working and going away on the weekends. And he has stayed with her ever since because he is afraid that he will come home to find her . She has steadily deteriorated even further. A month ago, is when her shortness of breath became much, much worse. She has no appetite. Has lost weight. She is taken a significant turn for the worse. Worse than she is ever been before. They both are Rastafarian. They feel that this life is just a test for what is to come after. Her states that if he could have a peaceful , go to sleep, and be in heaven, even if it was now, he would be okay with it. He says that he never wants to go through life and this slowly downward spiral as his has been doing. She agrees. She never would have imagined her life to be like this. For very long time she says that they had a "wonderful life". When they settled here on [place] he still travel to the [employer] to play on the weekends. He come home on Wednesday night or Wednesday morning. And then he would leave again on Wednesday. She loved her home and her very good friends that live on the island. She feels loved and loves them back. She cannot believe that her life is gotten to the point where she is so dependent on her for care. They are unable to afford private duty hire. He wants the help and feels like he has reached the end of his rope. She is still hesitant about having someone in her home. But they make too much money for [employer]. She has been losing her memory. That also impacts the stress on him. With this admission she has improved somewhat. But still so weak she will need to be placed in a [facility] facility for rehab. She is hoping to at least get to baseline status of dressing herself and feeding herself. Again, their main focus is her debility from her pain not so much for her lung disease. I have given her education about pulmonary fibrosis and its progression. That while she may be focusing on the pain, justifiably so, our medical team is been focused on treating and supporting her lungs. Objective/Medical Story: This is a very pleasant 74-year-old female with a past medical history significant for pulmonary fibrosis on 3 L of oxygen at baseline, hypertension who presents today complaining of worsening shortness of breath. She states this has been going on since July and she has been seen in the emergency department twice for similar symptoms. She was diagnosed with pneumonia during her last visit at the end of July and discharged on a higher prednisone taper which she is currently taking as well as antibiotics which she had completed. She completed 7 days of doxycycline. She is currently taking 20 mg of prednisone. She states she has been on and off of prednisone for the past 3 years but has been on it for the last few months. 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 Engel at the [facility]. She reports chronic cough but denies any fevers, chills, sore throat, nasal congestion. Reports no recent sick contacts. She has not been leaving the house nor has her . She denies any chest pain or lower extremity edema. She is also complaining of bilateral lower extremity weakness. She states this is been going on for the past 3 weeks. It began after she lifted her grandson 3 weeks ago. She reported having lower back pain but at this time she reports no pain. Denies any numbness or tingling in her lower extremities. She reports being quite sedentary due to this lower extremity weakness. She normally ambulates with a walker. In the emergency department, she was found to be afebrile with temperature of 36.1 C. She was tachycardic with a heart rate of 90. Her blood pressure was 144/91. She was not tachypneic and saturating 99% on 3 L via nasal cannula. Lab significant for a count of 13.6 with 2% bands. Potassium was 3.1. Troponin was elevated at 35.9. Her urinalysis was unremarkable. Chest x-ray was unchanged compared to prior imaging studies and showed calcified pleural plaquing along the right diaphragm with diffuse coarsening of interstitial markings. Her EKG shows sinus rhythm with left anterior fascicular block and poor R wave progression which is similar compared to prior EKGs. Given the findings above and her ongoing weakness, medicine was consulted for admission. Patient did receive 125 mg of Solumedrol IV in the emergency department. I did discuss goals of care with the patient and she would like to be a DNR with no mechanical ventilation given her pulmonary fibrosis. She does not want to fill out a POLST form today but would like to do so on an outpatient basis with her primary care provider. History - Past Medical History Cardiovascular: reports: Hypertension, Other Respiratory: reports: Other (Pulmonary fibrosis, Asbestos related disease.) Neuro: reports: None Endocrine/Autoimmune: reports: None GI: reports: None : reports: None HEENT: reports: None Psych: reports: None Musculoskeletal: reports: Chronic back pain Derm: reports: Psoriasis She has not really turned the corner with regards to her shortness of breath. She waxes and wanes in spite of treatment with antibiotics, steroids. She began having arrhythmias in the form of V. tach or PSVT. Those have been treated as well. But even today she had PSVT in the morning. She is weak, and needs a minimum to moderate assist to just get up out of bed. She can barely stand, walk a few steps before she is completely exhausted and dyspneic. She needs max assist with toileting. She has no appetite. She will maybe eat 25% of a meal at most. A PEG was discussed and she is declined. She will need rehabilitation to get her back to baseline. At this time plans are being made for her to be transferred to a [facility] facility for rehab and then return to home Goals of Care: 1. To get back home and return to the ability of dressing herself, feeding herself, and bathing herself. 2. To start making plans for the future because of anticipated deterioration with her lungs and her strength and her pain. Plan: 1. To sit down with her son, and [place] and see what practical help they can give her with regards to bathing, grocery shopping, cooking 2. Consult with social work to see if there are any organizations that can help them. 3. Follow through with palliative care. She is willing to consider transition to hospice when the time comes. Code Status: Do Not Attempt Resuscitation Time spent on advance care plannin minutes
[2019-09-19] MEDS ORDERED: SODIUM CHLORIDE 0.9% MINIBAG 100 ML IV ONE (14:14)
[2019-09-19] MEDS: BENZONATATE 100 MG CAPSULE PO PRN (20:39)
[2019-09-19] MEDS: MONTELUKAST 10 MG TABLET PO SCH (21:16)
[2019-09-19] MEDS: MIRTAZAPINE 15 MG TABLET PO SCH (21:16)
[2019-09-19] MEDS: LEVALBUTEROL 1.25 MG/3 ML NEB INH PRN (21:25)
[2019-09-20] MEDS: KETOROLAC 15 MG/ML VIAL IVP PRN ×2 (00:11→08:56)
[2019-09-20] MEDS: SODIUM CHLORIDE FLUSH 0.9% 10 ML SYRINGE IVP SCH ×2 (00:15→08:56)
[2019-09-20] MEDS: BENZONATATE 100 MG CAPSULE PO PRN (03:21)
[2019-09-20] MEDS: MORPHINE 2 MG/ML CARPUJECT IVP PRN ×2 (04:52→12:54)
[2019-09-20] MEDS: PIPERACILLIN/TAZOBACTAM 4.5 GM in SODIUM CHLORIDE 0.9% MINIBAG 100 ML IV SCH (04:55)
--- NOTE | 2019-09-20 08:42 | Discharge Plan ---
"Discharge Plan for SNF / [facility] - Discharge Plan And Transition Orders Problem Reviewed?: Yes Disposition: 03 SNF DC/Xfer Condition: Stable Allergies and Adverse Reactions: Allergies Allergy/AdvReac Type Severity Reaction Status Date / Time codeine Allergy Nausea Verified 07/28/19 15:25 Health Concerns: She is an elderly white female who has been with chronic lung problems all her life, and was eventually diagnosed with pulmonary fibrosis 3 years ago and has been oxygen dependent since then. She presented with increasing dyspnea, lower extremity weakness, severe anorexia, severe protein calorie malnutrition over the last month. She may have aspiration per her history but not witnessed in the hospital. Plan of Treatment: 1. Steroids and antibiotics for presumed lung infection in the face of chronic lung disease 2. Physical therapy for severe generalized weakness and fatigue 3. Nutrition consult and counseling with regards to anorexia, severe protein calorie malnutrition 4. Wound management of bilateral buttocks wounds that were due to heating pad overuse at home prior to admission 5. Resuming Cardizem for PSVT and managing electrolytes for nonsustained V. tach Care Goals: To return to home and semi-independent living. She needs to be able to stand to transfer for bathing herself, feeding herself, and dressing herself. Assessment: Patient and have poor insight of illness. Their main concern is chronic pain syndrome from chronic musculoskeletal pain. But they understand our concerns and promised to follow through. She is seen by Dr. Vandana Holloway for primary care and Dr. Engel at [facility], [place], operated by [facility] pulmonology. - SNF / [facility] Transition Orders Admit to (Facility): [facility] Under the care of (Name): MD Kecia Discharge Diagnosis: 1. Severe generalized weakness 2. Right lower lobe infiltrate 3. Moderate pulmonary fibrosis, 4. Chronic respiratory failure with hypoxia 5. Chronic pain syndrome 6. Severe protein calorie malnutrition 7. Bilateral buttocks burn ulcers, present on admission 8. Osteoporosis 9. Hypertension history. No longer on medications 10. PSVT 11. Nonsustained V. tach 12. Medication side effect, cushingoid secondary to steroids 13. Depressive disorder/adjustment disorder Medicare Certification Statement: I certify that [facility] intermediate care is medically necessary on a continuing basis for any of the conditions for which she/he is receiving care during hospitalization. Notify PCP of admission and forward orders to primary provider for signature. Weight on admission and: Weekly Other Notification Orders: Call PCP immediately if patient develops dyspnea, chest pain/tightness or edema. House Bowel Program: Yes Additional Bowel Program Orders: If no BM after 2 days, nurse may give M.O.M. 30ml PO PRN and/or ducolax Supp 1 MT and/or MELLY 250mg P.O., and/or senna 1-2 tabs PO. On day 3 nurse may give repeat above order until residents constipation is resolved. Annual Influenza Vaccine (between Nov 20 and June 19): Yes Treatments & Other Orders: xopenex via nebulizer qid prn wheezing and severe cough. xeroform gauze to wounds on buttocks, cover with 2x2 gauze and tegaderm and change every 3 days. Oxygen Orders: 4 liters by NC to keep O2 sat >92% Lab Tests or X-ray Orders: weekly BMP to start 09/26 Medication Orders: PLEASE REFER TO THE DISCHARGE MEDICATION LIST. Insulin Orders?: No - Medications New Prescriptions: traMADol [Ultram] 25 mg PO Q8HR PRN #30 tab PRN Reason: Pain ALPRAZolam [Alprazolam] 0.5 mg PO TID PRN #30 tab PRN Reason: Anxiety Levofloxacin [Levaquin] 750 mg PO DAILY #3 tablet Diphenoxylate/Atropine [Lomotil] 1 each PO QID PRN #1 tablet PRN Reason: Diarrhea - Diet Type: Geriatric Texture: Regular Liquids: Thin May have monthly special meal: Yes - Therapies | Activity Therapy: Evaluation | Treat if indicated: Speech, PT, OT, Swallowing / ST Rehabilitation Potential: Return to independent living Activity: Activity as Tolerated Assistance Devices: Wheelchair, Walker"
[2019-09-20] MEDS: NEUTRA-PHOS 250 MG TABLET PO SCH ×2 (08:56→12:54)
[2019-09-20] MEDS: MULTIVITAMIN W/MINERALS TABLET PO SCH (08:56)
[2019-09-20] MEDS: CHOLECALCIFEROL 400 UNIT TABLET PO SCH (08:56)
[2019-09-20] MEDS: diltiaZEM CD 120 MG CAPSULE PO SCH (08:56)
[2019-09-20] MEDS: guaiFENesin 600 MG TABLET PO SCH (08:56)
[2019-09-20] MEDS: predniSONE 10 MG TABLET PO SCH (08:56)
[2019-09-20] MEDS: ENOXAPARIN 40 MG/0.4 ML SYRINGE SUBQ SCH (08:56)
[2019-09-20] MEDS: polyethylene glycoL 3350 17 GM PACKET PO SCH (08:57)
[2019-09-20] MEDS: LEVALBUTEROL 1.25 MG/3 ML NEB INH PRN (10:00)
[2019-09-20] MEDS ORDERED: DIPHENOX/ATROPINE 2.5/0.025 MG TABLET PO PRN (10:18)
[2019-09-20] MEDS: CALCIUM CARBONATE CHEW 500 MG TABLET PO SCH (10:42)
[2019-09-20 13:45] VITALS: BP 104/75
--- NOTE | 2019-09-20 19:11 | DISCHARGE SUMMARY ---
Discharge Summary Admit Date: 09/12/19 Discharge Date: 09/20/19 Discharging Provider: Antoinette Galindo MD Primary Care Provider: Vandana Holloway MD Code Status: Do Not Attempt Resuscitation Condition at Discharge: Stable Discharge Disposition: 03 SNF DC/Xfer Discharge Facility Name: [facility] - DIAGNOSES Discharge Diagnoses with Status of Each Condition: 1. Severe generalized weakness 2. Severe protein calorie malnutrition 3. Chronic respiratory failure with hypoxia 4. Pulmonary fibrosis 5. Healthcare associated pneumonia 6. Chronic pain syndrome 7. Orthostatic hypotension 8. Dehydration, resolved 9. Chronic anemia with metamyelocytes and myelocytes 10. Decubitus ulcer of buttocks due to heating pad, present on admission 11. Hypophosphatemia 12. Scoliosis with kyphoscoliosis 13. Osteoporosis 14. History of hypertension 15. PSVT and Nonsustained Vtach 16. Diarrhea - HPI History of Present Illness: This is a very pleasant 74-year-old female with a past medical history significant for pulmonary fibrosis on 3 L of oxygen at baseline, hypertension who presents today complaining of worsening shortness of breath. She states this has been going on since July and she has been seen in the emergency department twice for similar symptoms. She was diagnosed with pneumonia during her last visit at the end of July and discharged on a higher prednisone taper which she is currently taking as well as antibiotics which she had completed. She completed 7 days of doxycycline. She is currently taking 20 mg of prednisone. She states she has been on and off of prednisone for the past 3 years but has been on it for the last few months. Her marine cargo inspector is Dr. Jonathan kelly at the [facility]. She reports chronic cough but denies any fevers, chills, sore throat, nasal congestion. Reports no recent sick contacts. She has not been leaving the house nor has her . She denies any chest pain or lower extremity edema. She is also complaining of bilateral lower extremity weakness. She states this is been going on for the past 3 weeks. It began after she lifted her grandson 3 weeks ago. She reported having lower back pain but at this time she reports no pain. Denies any numbness or tingling in her lower extremities. She reports being quite sedentary due to this lower extremity weakness. She normally ambulates with a walker. In the emergency department, she was found to be afebrile with temperature of 36.1 C. She was tachycardic with a heart rate of 90. Her blood pressure was 1 4491. She was not tachypneic and saturating 99% on 3 L via nasal cannula. Lab significant for a count of 13.6 with 2% bands. Potassium was 3.1. Troponin was elevated at 35.9. Her urinalysis was unremarkable. Chest x-ray was unchanged compared to prior imaging studies and showed calcified pleural plaquing along the right diaphragm with diffuse coarsening of interstitial markings. Her EKG shows sinus rhythm with left anterior fascicular block and poor R wave progression which is similar compared to prior EKGs. Given the findings above and her ongoing weakness, medicine was consulted for admission. Patient did receive 125 mg of Solumedrol IV in the emergency department. I did discuss goals of care with the patient and she would like to be a DNR with no mechanical ventilation given her pulmonary fibrosis. She does not want to fill out a POLST form today but would like to do so on an outpatient basis with her primary care provider. - Past Medical History Cardiovascular: reports: Hypertension, Other Respiratory: reports: Other (Pulmonary fibrosis, Asbestos related disease.) Neuro: reports: None Endocrine/Autoimmune: reports: None GI: reports: None : reports: None HEENT: reports: None Psych: reports: None Musculoskeletal: reports: Chronic back pain Derm: reports: Psoriasis - CONSULTS | PROCEDURES Procedures: 1. Chest x-ray September 11, September 14, September 16. 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 Coarsening of the interstitial markings. Consolidation of right lung then developed. Possible aspiration. 2. Lumbar spine with osteopenia, osteoporotic compression fractures at L2 and L3, mild 3. Blood cultures negative after 5 days 4. Gram stain of sputum noncontributory but did show yeast 5. Fecal occult blood positive 6. Coronavirus negative 7. B12 285, folate 7.77, iron 64, TIBC 153, percent saturation 42, transferrin 109 - HOSPITAL COURSE Hospital Course: She was admitted to the hospital more because of severe weakness than true obje ctive findings. However she was treated as pneumonia. Mild elevation of troponin. Her main finding during her hospitalization was profound, profound weakness. She was miserable with it. Constantly short of breath, and complaining bitterly of diffuse musculoskeletal pain. She also had severe pr otein calorie malnutrition. She and her both focus on the fact that she has the musculoskeletal pain and not so much the lung disease. They did not have insight to the fact that she has chronic respiratory failure with hypoxia. I did speak to her marine cargo inspector, Dr. Engel from pulmonology [facility] and he feels that her disease is "moderate". She is a few years away from being terminal. Anemia was identified but not iron deficient or B12 deficient. Iron was 64 and B12 was 285. She eventually developed changes in her chest x-ray indicative of hospital- acquired pneumonia and was treated with antibiotics. This was in addition to the steroids she was been given for her pulmonary fibrosis. She developed diarrhea requiring Imodium. Because she was so weak, physical therapy worked with her and felt that she would be a good candidate for rehabilitation. She had quite a bit of anhedonia and no motivation to get up even though she really wanted to get home. Orthostatic hypotension gradually resolved with IV fluids and improved nutrition. On admission she had bilateral decubitus ulcers that were identified as tovar from heating pads at home. Those were treated with Tegaderm and cream. Treatment of these will be continued at the assisted facility. Arrhythmias identified on telemetry without of PSVT and nonsustained V. tach that were both asymptomatic. She was discharged in stable condition but overall poor physical status. Temperature was 36.5. Pulse 85. Blood pressure 104/75. However orthostatics were done just before discharge were blood pressure supine was 124/68. Blood pressure sitting was 147/89. And blood pressure standing was 152/69. Respirations were 18 and unlabored and she requires 2 L nasal cannula T saturate 95%. She is a delightful tiny French female at 4 foot 11 inches tall and weighing 45 kg. Slightly cushingoid facial appearance. Neck is supple. Lungs have diffuse fine crackles. No increased respiratory effort at this time. A regular rate and rhythm. Abdomen is soft, mildly achy in the epigastrium but nontender. No rebound or guarding. Normal bowel sounds. Arms, legs are covered in ecchymosis from being in the hospital and being on steroids. Skin is fragile. Nonpitting edema around her ankles. She is alert, but occasionally can get confused and frowns with concentration if she tries to remember the sequence of events in her life. Greater than 30 minutes spent coordinating discharge. I have asked the patient to follow-up with Dr. Holloway. Of also asked her to start considering long- term plans with regards to advanced care planning. She and her have limited financial resources if she becomes more disabled and stays at home. Will she need to become permanent placement at a assisted facility or is the family plan on involving relatives and friends and helping take care of her. - ALLERGIES Allergies/Adverse Reactions: Allergies Allergy/AdvReac Type Severity Reaction Status Date / Time codeine Allergy Nausea Verified 07/28/19 15:25 - MEDICATIONS Home Medications: Ambulatory Orders Medication Instructions Recorded Confirmed Ondansetron Odt [Zofran Odt] 4 mg PO Q6H PRN 09/13/19 09/13/19 Potassium Chloride 10 meq PO DAILY 09/13/19 09/13/19 ALPRAZolam [Alprazolam] 0.5 mg PO TID PRN #30 tab 09/20/19 Acetaminophen [Tylenol] 650 mg PO Q4HR PRN tablet 09/20/19 Baclofen [Lioresal] 10 mg PO BID PRN #0 09/20/19 09/13/19 Benzonatate [Tessalon] 100 mg PO TID PRN capsule 09/20/19 Calcium Carbonate [Tums (Calcium 500 mg PO BID tablet 09/20/19 Carbonate 500mg)] Diphenoxylate/Atropine [Lomotil] 1 each PO QID PRN #1 tablet 09/20/19 Diphenoxylate/Atropine [Lomotil] 1 tab PO QID PRN tablet 09/20/19 Levalbuterol [Xopenex] 1.25 mg INH Q4H PRN neb 09/20/19 Levofloxacin [Levaquin] 750 mg PO DAILY #3 tablet 09/20/19 Mirtazapine [Remeron] 7.5 mg PO QPM tablet 09/20/19 Montelukast [Singulair] 10 mg PO QPM tablet 09/20/19 Multivitamin W/Minerals [Theragran 1 tab PO DAILYWM tablet 09/20/19 M] Neutra-Phos [K-Phos Neutral] 250 mg PO TIDWM tablet 09/20/19 Omeprazole 20 mg PO DAILY #0 09/20/19 09/13/19 diltiaZEM CD [Cardizem Cd] 120 mg PO DAILY capsule 09/20/19 guaiFENesin [Mucinex] 600 mg PO DAILY tablet 09/20/19 predniSONE [Deltasone] 10 mg PO DAILY #0 09/20/19 09/13/19 traMADol [Ultram] 25 mg PO Q8HR PRN #30 tab 09/20/19 - LABS Result Diagrams: 09/19/19 05:30 09/19/19 05:30 - SEPSIS Current Stage of Sepsis: Ruled out
[2019-09-21] MEDS ORDERED: levoFLOXacin 250 MG TABLET PO SCH (09:00)
== END 2019-09-20 14:32 | DRG 312 ==
LOC: EDUNIT# → ED 20:38 → MS2 23:28 → OBSVTOIN 09-16 10:37
PROVIDERS: ADMIT Internal Medicine; ATTEND Specialist
DX: I95.1 Orthostatic hypotension (principal); D72.829 Elevated white blood cell count, unspecified; E43 Unspecified severe protein-calorie malnutrition; J18.9 Pneumonia, unspecified organism; J96.11 Chronic respiratory failure with hypoxia; I95.9 Hypotension, unspecified; E46 Unspecified protein-calorie malnutrition; I47.1 Supraventricular tachycardia; E24.2 Drug-induced Cushing's syndrome; R60.0 Localized edema; I10 Essential (primary) hypertension; R53.1 Weakness; G89.29 Other chronic pain; M54.9 Dorsalgia, unspecified; R79.89 Other specified abnormal findings of blood chemistry; R29.898 Other symptoms and signs involving the musculoskeletal system; R53.83 Other fatigue; E87.6 Hypokalemia; J68.4 Chronic respiratory conditions due to chemicals, gases, fumes and vapors; T57.8X1D Toxic effect of other specified inorganic substances, accidental (unintentional), subsequent encounter; Z68.20 Body mass index [BMI] 20.0-20.9, adult; Y95 Nosocomial condition; G89.4 Chronic pain syndrome; M81.0 Age-related osteoporosis without current pathological fracture; E86.0 Dehydration; E83.42 Hypomagnesemia; D64.89 Other specified anemias; L89.320 Pressure ulcer of left buttock, unstageable; L89.310 Pressure ulcer of right buttock, unstageable; E83.39 Other disorders of phosphorus metabolism; M41.9 Scoliosis, unspecified; R23.1 Pallor; T38.0X5D Adverse effect of glucocorticoids and synthetic analogues, subsequent encounter; F43.20 Adjustment disorder, unspecified; F32.9 Major depressive disorder, single episode, unspecified; I44.4 Left anterior fascicular block; R19.7 Diarrhea, unspecified; Z74.09 Other reduced mobility; Z66 Do not resuscitate; Z51.5 Encounter for palliative care; Z20.828 Contact with and (suspected) exposure to other viral communicable diseases; Z99.81 Dependence on supplemental oxygen; Z79.52 Long term (current) use of systemic steroids; Z79.51 Long term (current) use of inhaled steroids; Z87.891 Personal history of nicotine dependence; Z86.79 Personal history of other diseases of the circulatory system
CPT/HCPCS: 36415; 71045; 72100; 80048; 80053; 81003; 82272; 82550; 82553; 82607; 82746; 83540; 83605; 83690; 83735; 83880; 84100; 84443; 84466; 84484; 85025; 85651; 86140; 87040; 87205; 93005; 93306; 94640; 96361; 96365; 96366; 96372; 96375; 96376; 97116; 97161; 97164; 97167; 97530; 99221; 99284; 99285; A6250; A9270; G0378; J1650; U0004; 81001; 81599; 87070; 87086

== ENCOUNTER 2019-09-25 07:00 | Outpatient (CLI) | payer MEDICARE ==
[2019-09-25 08:11] LABS: BASOPHILS # (AUTO) 0.1 10^3/uL (0.0-0.1); BASOPHILS % (AUTO) 0.7 %; EOSINOPHILS # (AUTO) 0.1 10^3/uL (0.0-0.7); EOSINOPHILS % (AUTO) 1.2 %; LYMPHOCYTES # (AUTO) 0.9 10^3/uL (1.5-3.5); LYMPHOCYTES % (AUTO) 8.6 %; MEAN CORPUSCULAR HEMOGLOBIN 34.2 pg (27.0-31.0); MEAN CORPUSCULAR HGB CONC 30.6 g/dL (32.0-36.0); MEAN PLATELET VOLUME 10.8 fL (7.9-10.8); MONOCYTES # (AUTO) 0.5 10^3/uL (0.0-1.0); MONOCYTES % (AUTO) 4.3 %; NEUTROPHILS # (AUTO) 8.9 10^3/uL (1.5-6.6); NEUTROPHILS % (AUTO) 81.6 %; PLT - PLATELET COUNT 171 10^3/uL (130-450); RED BLOOD COUNT 2.92 10^6/uL (4.20-5.40); RED CELL DISTRIBUTION WIDTH 18.4 % (12.0-15.0); WHITE BLOOD COUNT 10.9 x10^3/uL (4.8-10.8)
[2019-09-25 08:29] LABS: ALBUMIN 2.2 g/dL (3.2-5.5); ALBUMIN/GLOBULIN RATIO 0.8 (1.0-2.2); BILIRUBIN,TOTAL 0.8 mg/dL (0.2-1.0); CALCIUM 7.9 mg/dL (8.5-10.3); CREATININE 0.4 mg/dL (0.4-1.0)
[2019-09-25 08:44] LABS: PLATELET ESTIMATE, MANUAL NORMAL (130-450,000) (NORMAL); PLATELET MORPHOLOGY NORMAL APPEARANCE (NORMAL)
== END 2019-09-25 23:59 | disposition home or self-care (01) ==
LOC: LAB.R 07:00
DX: I10 Essential (primary) hypertension (principal); J84.10 Pulmonary fibrosis, unspecified; E43 Unspecified severe protein-calorie malnutrition
CPT/HCPCS: 80053; 85025

== ENCOUNTER 2019-09-27 13:43 | Outpatient (CLI) | payer MEDICARE ==
--- NOTE | 2019-09-27 14:45 | XRAY Report ---
PROCEDURE: Chest 2 View X-Ray INDICATIONS: PNA TECHNIQUE: 2 view(s) of the chest. COMPARISON: Chest x-ray, 09/17/2019. FINDINGS: Surgical changes and devices: None. Lungs and pleura: Bilateral alveolar and interstitial infiltrates, right greater than left, unchange d. No pleural effusions or pneumothorax. Mediastinum: Mediastinal contours are normal. Heart size is normal. Bones and chest wall: Severe osteopenia. Multiple compression fractures are present, suboptimally vi sualized due to technique and severe osteopenia. Multiple left rib fractures. No suspicious bony abno rmalities. Soft tissues appear unremarkable. IMPRESSION: Persistent bilateral alveolar and interstitial infiltrates consistent with pneumonia. Reviewed by: Jacquelin Ford MD on 09/27/2019 2:43 PM PDT Approved by: Jacquelin Ford MD on 09/27/2019 2:43 PM PDT Station ID: [id number]
== END 2019-09-27 13:44 | disposition home or self-care (01) ==
LOC: DI 13:43
PROVIDERS: ATTEND Internal Medicine
DX: J18.9 Pneumonia, unspecified organism (principal)
CPT/HCPCS: 71046

== ENCOUNTER 2019-09-29 19:10 | Outpatient (CLI) | payer MEDICARE ==
[2019-09-29 20:36] LABS: CALCIUM 8.1 mg/dL (8.5-10.3); CREATININE 0.5 mg/dL (0.4-1.0)
== END 2019-09-29 23:59 | disposition home or self-care (01) ==
LOC: LAB.R 19:10
PROVIDERS: ATTEND Family Medicine
DX: E87.6 Hypokalemia (principal); I10 Essential (primary) hypertension
CPT/HCPCS: 80048

== ENCOUNTER 2019-10-04 10:15 | Outpatient (CLI) | payer MEDICARE ==
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
== END 2019-10-04 10:16 | disposition home or self-care (01) ==
LOC: PC 10:15
PROVIDERS: ATTEND Nurse Practitioner Family
DX: Z51.5 Encounter for palliative care (principal); J84.10 Pulmonary fibrosis, unspecified; J96.20 Acute and chronic respiratory failure, unspecified whether with hypoxia or hypercapnia; Z99.81 Dependence on supplemental oxygen; G89.29 Other chronic pain; M54.9 Dorsalgia, unspecified; F32.9 Major depressive disorder, single episode, unspecified; R62.7 Adult failure to thrive; R63.0 Anorexia; E43 Unspecified severe protein-calorie malnutrition; E11.9 Type 2 diabetes mellitus without complications; I48.91 Unspecified atrial fibrillation; I47.1 Supraventricular tachycardia; E24.2 Drug-induced Cushing's syndrome; R53.1 Weakness; R32 Unspecified urinary incontinence; Z66 Do not resuscitate; Z99.3 Dependence on wheelchair; Z79.51 Long term (current) use of inhaled steroids; Z79.899 Other long term (current) drug therapy; Z87.01 Personal history of pneumonia (recurrent); Z79.52 Long term (current) use of systemic steroids
CPT/HCPCS: 99310

== ENCOUNTER 2019-10-12 13:59 | Outpatient (CLI) | payer MEDICARE | END 2019-10-12 14:00 | disposition EAH | LOC: EMS 13:59 | PROVIDERS: ATTEND Surgery | DX: J84.10 Pulmonary fibrosis, unspecified ==